=== PATIENT | male | born 1955 | race African-American/Black ===

== ENCOUNTER 2016-11-11 12:08 | Inpatient (IN) | payer OTHER ==
--- NOTE | 2016-11-11 17:36 | HP ---
CIWA Score - CIWA Score Nausea/Vomitin-Mild Nausea/No Vomiting Muscle Tremors: 3 Anxiety: 4-Mod. Anxious/Guarded Agitation: 4-Moderately Restless Paroxysmal Sweats: 1-Minimal Palms Moist Orientation: 2-Disoriented Date<2 days Tacttile Disturbances: 0-None Auditory Disturbances: 0-None Visual Disturbances: 0-None Headache: 0-None Present CIWA-Ar Total Score: 15 Admission ROS BHS - HPI Chief Complaint: withdrawal sx Allergies/Adverse Reactions: Allergies Allergy/AdvReac Type Severity Reaction Status Date / Time No Known Allergies Allergy Verified 11/11/16 18:20 History of Present Illness: 60 years old male with long history of alcohol marijuana nicotine denies medical issue denies medical issue is admitted to detox Exam Limitations: No Limitations - Ebola screening Have you traveled outside of the country in the last 21 days: No Have you had contact with anyone from an Ebola affected area: No Have you been sick,other than usual withdrawal symptoms: No Do you have a fever: No - Review of Systems Constitutional: Chills, Loss of Appetite, Changes in sleep, Unintentional Wgt. Loss, Unexplained wgt Loss EENT: reports: Other (eye glasses) Respiratory: reports: No Symptoms reported Cardiac: reports: No Symptoms Reported GI: reports: Nausea, Poor Fluid Intake, Abdominal cramping : reports: No Symptoms Reported Musculoskeletal: reports: No Symptoms Reported Integumentary: reports: No Symptoms Reported Neuro: reports: Tremors Endocrine: reports: No Symptoms Reported Hematology: reports: No Symptoms Reported Psychiatric: reports: Judgement Intact, Mood/Affect Appropiate Other Systems: Reviewed and Negative Patient History - Patient Medical History Hx Anemia: No Hx Asthma: No Hx Chronic Obstructive Pulmonary Disease (COPD): No Hx Cancer: No Hx Cardiac Disorders: No Hx Congestive Heart Failure: No Hx Hypertension: No Hx Hypercholesterolemia: No Hx Pacemaker: No HX Cerebrovascular Accident: No Hx Seizures: No Hx Dementia: No Hx Diabetes: No Hx Gastrointestinal Disorders: No Hx Liver Disease: No Hx Genitourinary Disorders: No Hx Sexually Transmitted Disorders: No Hx Renal Disease (ESRD): No Hx Thyroid Disease: No Hx Human Immunodeficiency Virus (HIV): No (LAST 08/18 NEGATIVE) Hx Hepatitis C: No Hx Depression: No Hx Suicide Attempt: No Hx Bipolar Disorder: No Hx Schizophrenia: No - Patient Surgical History Past Surgical History: No Hx Neurologic Surgery: No Hx Cataract Extraction: No Hx Cardiac Surgery: No Hx Lung Surgery: No Hx Breast Surgery: No Hx Breast Biopsy: No Hx Abdominal Surgery: No Hx Appendectomy: No Hx Cholecystectomy: No Hx Genitourinary Surgery: No Hx Orthopedic Surgery: No - PPD History Previous Implant?: Yes Documented Results: Negative w/proof Implanted On Prior [facility] Admission?: Yes Date: 01/30/15 Results: 0 mm PPD to be Administered?: Yes - Smoking Cessation Smoking history: Current every day smoker Have you smoked in the past 12 months: Yes Aproximately how many cigarettes per day: 3 Cigars Per Day: 2 Hx Chewing Tobacco Use: No Initiated information on smoking cessation: Yes 'Breaking Loose' booklet given: 11/11/16 - Substance & Tx. History Hx Alcohol Use: Yes Hx Substance Use: Yes Substance Use Type: Alcohol, Marijuana Hx Substance Use Treatment: Yes - Substances Abused Alcohol Route: Oral Frequency: Daily Amount used: 24oz x 5 + pint volka Age of first use: 21 Date of Last Use: 11/11/16 Family Disease History - Family Disease History Family Disease History: Other: Father (), Mother () Admission Physical Exam S - Vital Signs Vital Signs: Vital Signs - 24 hr 11/11/16 13:10 Temperature 96.8 F L Pulse Rate 90 Respiratory 20 Rate Blood Pressure 134/77 - Physical General Appearance: Yes: Appropriately Dressed, Moderate Distress, Alcohol on Breath, Thin, Tremorous, Irritable, Sweating, Anxious HEENTM: Yes: Hearing grossly Normal, Normal ENT Inspection, Normocephalic, Normal Voice Respiratory: Yes: Chest Non-Tender, Lungs Clear, Normal Breath Sounds, No Respiratory Distress, No Accessory Muscle Use Neck: Yes: Supple, Trachea in good position Breast: Yes: Breasts Symetrical Cardiology: Yes: Regular Rhythm, S1, S2, Tachycardia Abdominal: Yes: Non Tender, Soft Genitourinary: Yes: Within Normal Limits Back: Yes: Normal Inspection Musculoskeletal: Yes: full range of Motion, Gait Steady Extremities: Yes: Normal Range of Motion, Non-Tender, Tremors 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: Yes: Alert, Motor Strength 5/5, Normal Mood/Affect, Normal Response Integumentary: Yes: Warm Lymphatic: Yes: Within Normal Limits - Diagnostic (1) Alcohol dependence with uncomplicated withdrawal Current Visit: Yes Status: Acute (2) Nicotine dependence Current Visit: Yes Status: Acute Qualifiers: Nicotine product type: cigarettes Substance use status: in withdrawal Qualified Code(s): F17.213 - Nicotine dependence, cigarettes, with withdrawal (3) Cannabis dependence, uncomplicated Current Visit: Yes Status: Chronic Cleared for Admission [facility] - Detox or Rehab [facility] Level of Care: Medically Managed Detox Regimen/Protocol: Librium S Breath Alcohol Content Breath Alcohol Content: 0.159 Vital Signs - Vital Signs Vital Signs Refused: No - Height Height: 5 ft 10 in - Weight Weight: 162 lb Weight Measurement Method: Standing Scale Body Mass Index (BMI): 23.2 - Bowel Function Bowel Movement: Yes Urine Drug Screen - Control Is Test Valid: Yes - Results Drug Screen Negative: No Urine Drug Screen Results: THC-Marijuana, BZO-Benzodiazepines
[2016-11-11 17:42] VITALS: BMI 23.2
[2016-11-11] MEDS ORDERED: P-EPHED 60MG/TRIPROLIDI 2.5MG TABLET PO PRN (17:43)
[2016-11-11] MEDS ORDERED: ACETAMINOPHEN 325 MG TABLET (FP) PO PRN (17:43)
[2016-11-11] MEDS ORDERED: MAGNESIUM HYDROX 2400MG/30ML ORAL SUSPENSION 30 ML CUP PO PRN (17:43)
[2016-11-11] MEDS ORDERED: guaiFENesin/D-METHORPHAN HB 10 ML UNIT-DOSE CUPS PO PRN (17:43)
[2016-11-11] MEDS ORDERED: IBUPROFEN 400 MG TABLET (FP) PO PRN (17:43)
[2016-11-11] MEDS ORDERED: MAG HYDROX/AL HYDROX/SIMETH 30 ML UNIT-DOSE CUP PO PRN (17:43)
[2016-11-11] MEDS ORDERED: MENTHOL/PHENOL 1 EACH UD MM PRN (17:43)
[2016-11-11] MEDS ORDERED: MAGNESIUM CITRATE 300 ML BOTTLE PO PRN (17:43)
[2016-11-11] MEDS ORDERED: diphenhydrAMINE HCL 50 MG CAPSULE PO PRN (17:43)
[2016-11-11] MEDS ORDERED: NICOTINE POLACRILEX 2 MG GUM BC PRN (17:43)
[2016-11-11] MEDS ORDERED: LOPERAMIDE HCL 2 MG CAPSULE PO PRN (17:43)
[2016-11-11] MEDS ORDERED: NICOTINE 14 MG/24 HOURS TOPICAL PATCH TD PRN (18:45)
[2016-11-11] MEDS: chlordiazePOXIDE HCL 25 MG CAPSULE PO PRN (20:06)
[2016-11-11 22:33] LABS: URINE APPEARANCE CLEAR; URINE BILIRUBIN NEGATIVE (NEGATIVE); URINE BLOOD NEGATIVE (NEGATIVE); URINE COLOR STRAW; URINE GLUCOSE (UA) NEGATIVE (NEGATIVE); URINE KETONE NEGATIVE (NEGATIVE); URINE LEUK ESTERASE NEGATIVE (NEGATIVE); URINE NITRITE NEGATIVE (NEGATIVE); URINE PROTEIN NEGATIVE (NEGATIVE); URINE UROBILINOGEN NEGATIVE E.U./dl (0.2-1.0)
[2016-11-11] MEDS: chlordiazePOXIDE HCL 25 MG CAPSULE PO SCH (22:47)
[2016-11-11] MEDS: THIAMINE HCL 100 MG TABLET (FP) PO SCH (22:47)
[2016-11-12] MEDS: chlordiazePOXIDE HCL 25 MG CAPSULE PO SCH ×4 (05:49→22:55)
--- NOTE | 2016-11-12 10:46 | PN ---
S CIWA - CIWA Score Nausea/Vomitin-No Nausea/No Vomiting Muscle Tremors: 4-Moderate,w/Arms Extend Anxiety: 4-Mod. Anxious/Guarded Agitation: 4-Moderately Restless Paroxysmal Sweats: 1-Minimal Palms Moist Orientation: 0-Oriented Tacttile Disturbances: 3-Moderate Itch/Numb/Burn Auditory Disturbances: 0-None Visual Disturbances: 0-None Headache: 0-None Present CIWA-Ar Total Score: 16 BHS Progress Note (SOAP) Subjective: ANXIETY,SWEATS,SLIGHT TREMORS Objective: 11/12/16 10:45 Vital Signs Temperature 97.7 F 11/12/16 10:22 Pulse Rate 87 11/12/16 10:22 Respiratory Rate 18 11/12/16 10:22 Blood Pressure 118/72 11/12/16 10:22 O2 Sat by Pulse Oximetry (%) Laboratory Last Values Urine Color Straw 11/11/16 22:00 Urine Appearance Clear 11/11/16 22:00 Urine pH 5.0 (5.0-8.0) 11/11/16 22:00 Ur Specific [place] 1.013 (1.001-1.035) 11/11/16 22:00 Urine Protein Negative (NEGATIVE) 11/11/16 22:00 Urine Glucose (UA) Negative (NEGATIVE) 11/11/16 22:00 Urine Ketones Negative (NEGATIVE) 11/11/16 22:00 Urine Blood Negative (NEGATIVE) 11/11/16 22:00 Urine Nitrite Negative (NEGATIVE) 11/11/16 22:00 Urine Bilirubin Negative (NEGATIVE) 11/11/16 22:00 Urine Urobilinogen Negative E.U./dl (0.2-1.0) 11/11/16 22:00 Ur Leukocyte Esterase Negative (NEGATIVE) 11/11/16 22:00 Assessment: 11/12/16 10:46 WITHDRAWAL SX Plan: CONTINUE DETOX
[2016-11-12] MEDS: PRENATAL VITAMINS W/ FOLIC ACID TABLET (FP) PO SCH (11:28)
[2016-11-12] MEDS: ASPIRIN 81 MG CHEWABLE TABLETS PO SCH (11:28)
[2016-11-12 11:41] LABS: MCH 27.4 pg (25.7-33.7); MEAN CELL VOLUME 83.1 fl (80-96); MEAN PLT VOLUME 8.7 fl (7.5-11.1); PLATELET COUNT 226 K/MM3 (134-434); RDW 15.5 % (11.9-15.9); WHITE BLOOD COUNT 4.5 K/mm3 (4.0-10.0)
[2016-11-12 11:44] LABS: ALK PHOS 88 U/L (45-117); BILIRUBIN,TOTAL 0.3 mg/dL (0.2-1.0); CALCIUM 8.3 mg/dL (8.5-10.1); CO2 23 mmol/L (21-32); COCKROFT - GAULT 90.71; CREATININE 0.9 mg/dL (0.7-1.3); GLUCOSE,RANDOM 87 mg/dL (74-106); SGOT/AST 37 U/L (15-37); SGPT/ALT 34 U/L (12-78); TOT PROT 7.5 g/dl (6.4-8.2)
--- NOTE | 2016-11-12 13:58 | EKG ---
Test Reason : Blood Pressure : / mmHG Vent. Rate : 080 BPM Atrial Rate : 080 BPM P-R Int : 162 ms QRS Dur : 084 ms QT Int : 362 ms P-R-T Axes : 133 057 -18 degrees QTc Int : 417 ms NORMAL SINUS RHYTHM NONSPECIFIC T WAVE ABNORMALITY ABNORMAL ECG NO PREVIOUS ECGS AVAILABLE CLINICAL CORRELATION IS RECOMMENDED Confirmed by CARLI LICEA MD ([id number]) on 11/12/2016 1:58:15 PM Referred By: Confirmed By:CARLI LICEA MD
[2016-11-12] MEDS: THIAMINE HCL 100 MG TABLET (FP) PO SCH (22:55)
[2016-11-13] MEDS: chlordiazePOXIDE HCL 25 MG CAPSULE PO SCH ×3 (06:04→17:21)
[2016-11-13] MEDS: PRENATAL VITAMINS W/ FOLIC ACID TABLET (FP) PO SCH (10:36)
[2016-11-13] MEDS: ASPIRIN 81 MG CHEWABLE TABLETS PO SCH (10:36)
--- NOTE | 2016-11-13 11:58 | PN ---
[facility] CIWA - CIWA Score Nausea/Vomitin-No Nausea/No Vomiting Muscle Tremors: 4-Moderate,w/Arms Extend Anxiety: 4-Mod. Anxious/Guarded Agitation: 4-Moderately Restless Paroxysmal Sweats: 1-Minimal Palms Moist Orientation: 0-Oriented Tacttile Disturbances: 3-Moderate Itch/Numb/Burn Auditory Disturbances: 0-None Visual Disturbances: 0-None Headache: 0-None Present CIWA-Ar Total Score: 16 S Progress Note (SOAP) Subjective: ANXIETY,SWEATS,IRRITABILTY. Objective: 11/13/16 11:58 Vital Signs Temperature 96.6 F L 11/13/16 10:22 Pulse Rate 70 11/13/16 10:22 Respiratory Rate 18 11/13/16 10:22 Blood Pressure 129/85 11/13/16 10:22 O2 Sat by Pulse Oximetry (%) Laboratory Last Values WBC 4.5 K/mm3 (4.0-10.0) 11/12/16 06:40 RBC 4.75 M/mm3 (4.00-5.60) 11/12/16 06:40 Hgb 13.0 GM/dL (11.7-16.9) D 11/12/16 06:40 Hct 39.5 % (35.4-49) 11/12/16 06:40 MCV 83.1 fl (80-96) 11/12/16 06:40 MCHC 33.0 g/dl (32.0-35.9) 11/12/16 06:40 RDW 15.5 % (11.9-15.9) D 11/12/16 06:40 Plt Count 226 K/MM3 (134-434) 11/12/16 06:40 MPV 8.7 fl (7.5-11.1) 11/12/16 06:40 Sodium 141 mmol/L (136-145) 11/12/16 06:40 Potassium 4.3 mmol/L (3.5-5.1) 11/12/16 06:40 Chloride 105 mmol/L (98-107) 11/12/16 06:40 Carbon Dioxide 23 mmol/L (21-32) 11/12/16 06:40 Anion Gap Y 11/12/16 06:40 BUN 9 mg/dL (7-18) 11/12/16 06:40 Creatinine 0.9 mg/dL (0.7-1.3) 11/12/16 06:40 Creat Clearance w eGFR > 60 (>60) 11/12/16 06:40 Random Glucose 87 mg/dL (74-106) 11/12/16 06:40 Calcium 8.3 mg/dL (8.5-10.1) L 11/12/16 06:40 Total Bilirubin 0.3 mg/dL (0.2-1.0) D 11/12/16 06:40 AST 37 U/L (15-37) 11/12/16 06:40 ALT 34 U/L (12-78) 11/12/16 06:40 Alkaline Phosphatase 88 U/L (45-117) 11/12/16 06:40 Total Protein 7.5 g/dl (6.4-8.2) 11/12/16 06:40 Albumin 4.0 g/dl (3.4-5.0) 11/12/16 06:40 Urine Color Straw 11/11/16 22:00 Urine Appearance Clear 11/11/16 22:00 Urine pH 5.0 (5.0-8.0) 11/11/16 22:00 Ur Specific [place] 1.013 (1.001-1.035) 11/11/16 22:00 Urine Protein Negative (NEGATIVE) 11/11/16 22:00 Urine Glucose (UA) Negative (NEGATIVE) 11/11/16 22:00 Urine Ketones Negative (NEGATIVE) 11/11/16 22:00 Urine Blood Negative (NEGATIVE) 11/11/16 22:00 Urine Nitrite Negative (NEGATIVE) 11/11/16 22:00 Urine Bilirubin Negative (NEGATIVE) 11/11/16 22:00 Urine Urobilinogen Negative E.U./dl (0.2-1.0) 11/11/16 22:00 Ur Leukocyte Esterase Negative (NEGATIVE) 11/11/16 22:00 RPR Titer Nonreactive (NONREACTIVE) 11/12/16 06:40 Assessment: 11/13/16 11:58 WITHDRAWAL SX Plan: CONTINUE DETOX
[2016-11-13] MEDS: chlordiazePOXIDE HCL 25 MG CAPSULE PO PRN (13:18)
[2016-11-13] MEDS: chlordiazePOXIDE 5 MG CAPSULE PO SCH (23:15)
[2016-11-13] MEDS: THIAMINE HCL 100 MG TABLET (FP) PO SCH (23:17)
[2016-11-14] MEDS: chlordiazePOXIDE 5 MG CAPSULE PO SCH (05:19)
[2016-11-14 06:38] VITALS: BP 120/79; PULSE 61; TEMP 97.1
[2016-11-14] MEDS: ASPIRIN 81 MG CHEWABLE TABLETS PO SCH (10:09)
[2016-11-14] MEDS: PRENATAL VITAMINS W/ FOLIC ACID TABLET (FP) PO SCH (10:09)
--- NOTE | 2016-11-14 10:44 | DS ---
[facility] Detox Discharge Summary Admission Date: 11/11/16 Discharge Date: 11/14/16 - History Present History: Alcohol Dependence, Cannabis Dependence Additional Comments: PT DECLINED TO CONTINUE WITH DETOX FOR PERSONAL REASONS. ALERT O X 3. NAD. Pertinent Past History: DENIES PMHx AND PPSYCHx - Physical Exam Results Vital Signs: Vital Signs Temperature 97.1 F L 11/14/16 06:37 Pulse Rate 61 11/14/16 06:37 Respiratory Rate 18 11/14/16 06:37 Blood Pressure 120/79 11/14/16 06:37 O2 Sat by Pulse Oximetry (%) Pertinent Admission Physical Exam Findings: WITHDRAWAL SX Laboratory Last Values WBC 4.5 K/mm3 (4.0-10.0) 11/12/16 06:40 RBC 4.75 M/mm3 (4.00-5.60) 11/12/16 06:40 Hgb 13.0 GM/dL (11.7-16.9) D 11/12/16 06:40 Hct 39.5 % (35.4-49) 11/12/16 06:40 MCV 83.1 fl (80-96) 11/12/16 06:40 MCHC 33.0 g/dl (32.0-35.9) 11/12/16 06:40 RDW 15.5 % (11.9-15.9) D 11/12/16 06:40 Plt Count 226 K/MM3 (134-434) 11/12/16 06:40 MPV 8.7 fl (7.5-11.1) 11/12/16 06:40 Sodium 141 mmol/L (136-145) 11/12/16 06:40 Potassium 4.3 mmol/L (3.5-5.1) 11/12/16 06:40 Chloride 105 mmol/L (98-107) 11/12/16 06:40 Carbon Dioxide 23 mmol/L (21-32) 11/12/16 06:40 Anion Gap Y 11/12/16 06:40 BUN 9 mg/dL (7-18) 11/12/16 06:40 Creatinine 0.9 mg/dL (0.7-1.3) 11/12/16 06:40 Creat Clearance w eGFR > 60 (>60) 11/12/16 06:40 Random Glucose 87 mg/dL (74-106) 11/12/16 06:40 Calcium 8.3 mg/dL (8.5-10.1) L 11/12/16 06:40 Total Bilirubin 0.3 mg/dL (0.2-1.0) D 11/12/16 06:40 AST 37 U/L (15-37) 11/12/16 06:40 ALT 34 U/L (12-78) 11/12/16 06:40 Alkaline Phosphatase 88 U/L (45-117) 11/12/16 06:40 Total Protein 7.5 g/dl (6.4-8.2) 11/12/16 06:40 Albumin 4.0 g/dl (3.4-5.0) 11/12/16 06:40 Urine Color Straw 11/11/16 22:00 Urine Appearance Clear 11/11/16 22:00 Urine pH 5.0 (5.0-8.0) 11/11/16 22:00 Ur Specific [place] 1.013 (1.001-1.035) 11/11/16 22:00 Urine Protein Negative (NEGATIVE) 11/11/16 22:00 Urine Glucose (UA) Negative (NEGATIVE) 11/11/16 22:00 Urine Ketones Negative (NEGATIVE) 11/11/16 22:00 Urine Blood Negative (NEGATIVE) 11/11/16 22:00 Urine Nitrite Negative (NEGATIVE) 11/11/16 22:00 Urine Bilirubin Negative (NEGATIVE) 11/11/16 22:00 Urine Urobilinogen Negative E.U./dl (0.2-1.0) 11/11/16 22:00 Ur Leukocyte Esterase Negative (NEGATIVE) 11/11/16 22:00 RPR Titer Nonreactive (NONREACTIVE) 11/12/16 06:40 - Treatment Hospital Course: Discharged Condition Good - Medication Discharge Medications: Ambulatory Orders NK [No Known Home Medication] 01/28/15 - Diagnosis (1) Alcohol dependence with uncomplicated withdrawal Current Visit: Yes Status: Acute (2) Nicotine dependence Current Visit: Yes Status: Acute Qualifiers: Nicotine product type: cigarettes Substance use status: in withdrawal Qualified Code(s): F17.213 - Nicotine dependence, cigarettes, with withdrawal (3) Cannabis dependence, uncomplicated Current Visit: Yes Status: Chronic (4) Cocaine dependence Current Visit: No Status: Inactive Qualified Code(s): - - AMA Did Patient Leave Against Medical Advice: Yes (AMA)
[2016-11-14] MEDS ORDERED: chlordiazePOXIDE HCL 10 MG CAPSULE PO SCH (23:00)
== END 2016-11-14 08:45 | disposition left against medical advice (07) | DRG 770 ==
LOC: YASAS 12:08 → Y3N 18:39
PROVIDERS: ADMIT Internal Medicine; ATTEND Internal Medicine
PROC: HZ2ZZZZ Detoxification Services for Substance Abuse Treatment (ICD-10-PCS; principal; 2016-11-14)
DX: F10.230 Alcohol dependence with withdrawal, uncomplicated (principal); F14.20 Cocaine dependence, uncomplicated; F12.20 Cannabis dependence, uncomplicated; F17.210 Nicotine dependence, cigarettes, uncomplicated
CPT/HCPCS: 36415; 80053; 81003; 85027; 86593; 93005; 93010

== ENCOUNTER 2017-08-26 12:09 | Inpatient (IN) | payer OTHER ==
[2017-08-26 14:18] VITALS: BMI 22.9
--- NOTE | 2017-08-26 20:22 | HP ---
CIWA Score - CIWA Score Nausea/Vomitin-Mild Nausea/No Vomiting Muscle Tremors: 4-Moderate,w/Arms Extend Anxiety: 4-Mod. Anxious/Guarded Agitation: 4-Moderately Restless Paroxysmal Sweats: 1-Minimal Palms Moist Orientation: 3-Disoriented Date>2 days Tacttile Disturbances: 0-None Auditory Disturbances: 0-None Visual Disturbances: 0-None Headache: 0-None Present CIWA-Ar Total Score: 17 Admission ROS S - HPI Chief Complaint: withdrawal sx Allergies/Adverse Reactions: Allergies Allergy/AdvReac Type Severity Reaction Status Date / Time No Known Allergies Allergy Verified 08/26/17 16:40 History of Present Illness: 61 years old male with long history of alcohol dependence has asthma copd and depression is admitted to detox Exam Limitations: No Limitations - Ebola screening Have you traveled outside of the country in the last 21 days: No Have you had contact with anyone from an Ebola affected area: No Have you been sick,other than usual withdrawal symptoms: No Do you have a fever: No - Review of Systems Constitutional: Chills, Loss of Appetite, Unintentional Wgt. Loss, Unexplained wgt Loss EENT: reports: Blurred Vision (need eye glasses), Dental Problems (multiple teeth missing) Respiratory: reports: No Symptoms reported Cardiac: reports: No Symptoms Reported GI: reports: Nausea, Poor Fluid Intake, Abdominal cramping : reports: No Symptoms Reported Musculoskeletal: reports: No Symptoms Reported Integumentary: reports: No Symptoms Reported Neuro: reports: Tremors Endocrine: reports: No Symptoms Reported Hematology: reports: No Symptoms Reported Psychiatric: reports: Judgement Intact, Depressed Other Systems: Reviewed and Negative Patient History - Patient Medical History Hx Anemia: No Hx Asthma: No Hx Chronic Obstructive Pulmonary Disease (COPD): No Hx Cancer: No Hx Cardiac Disorders: No Hx Congestive Heart Failure: No Hx Hypertension: No Hx Hypercholesterolemia: No Hx Pacemaker: No HX Cerebrovascular Accident: No Hx Seizures: No Hx Dementia: No Hx Diabetes: No Hx Gastrointestinal Disorders: No Hx Liver Disease: No Hx Genitourinary Disorders: No Hx Sexually Transmitted Disorders: No Hx Renal Disease (ESRD): No Hx Thyroid Disease: No Hx Human Immunodeficiency Virus (HIV): No (LAST 08/18 NEGATIVE) Hx Hepatitis C: Yes Hx Depression: No Hx Suicide Attempt: No Hx Bipolar Disorder: No Hx Schizophrenia: No - Patient Surgical History Past Surgical History: No Hx Neurologic Surgery: No Hx Cataract Extraction: No Hx Cardiac Surgery: No Hx Lung Surgery: No Hx Breast Surgery: No Hx Breast Biopsy: No Hx Abdominal Surgery: No Hx Appendectomy: No Hx Cholecystectomy: No Hx Genitourinary Surgery: No Hx Orthopedic Surgery: No - PPD History Previous Implant?: Yes Documented Results: Negative w/proof Implanted On Prior [facility] Admission?: Yes Date: 11/13/16 Results: 0 mm PPD to be Administered?: No - Smoking Cessation Smoking history: Former smoker Have you smoked in the past 12 months: No Aproximately how many cigarettes per day: 0 Cigars Per Day: 0 Hx Chewing Tobacco Use: No Initiated information on smoking cessation: No - Substance & Tx. History Hx Alcohol Use: Yes Hx Substance Use: Yes Substance Use Type: Alcohol, Marijuana Hx Substance Use Treatment: Yes (11/2016 [facility] - Substances Abused Alcohol Route: Oral Frequency: Daily Amount used: LIQUOR- 1 PINT, BEER- 9 (24oz) Age of first use: 21 Date of Last Use: 08/26/17 Marijuana/Hashish Route: Smoking Frequency: Daily Amount used: $30 worth Age of first use: 21 Date of Last Use: 08/25/17 Family Disease History - Family Disease History Family Disease History: Other: Father (), Mother () Admission Physical Exam S - Vital Signs Vital Signs: Vital Signs - 24 hr 08/26/17 14:16 Temperature 97.4 F L Pulse Rate 112 H Respiratory 20 Rate Blood Pressure 149/81 - Physical General Appearance: Yes: Appropriately Dressed, Mild Distress, Thin, Tremorous, Irritable, Sweating, Anxious HEENTM: Yes: Hearing grossly Normal, Normal ENT Inspection, Normocephalic, Normal Voice Respiratory: Yes: Chest Non-Tender, No Respiratory Distress, No Accessory Muscle Use, Wheezing, Hyperresonant Neck: Yes: Supple, Trachea in good position Breast: Yes: Breasts Symetrical Cardiology: Yes: Regular Rhythm, S1, S2, Tachycardia Abdominal: Yes: Non Tender, Soft, Increased Bowel Sounds Genitourinary: Yes: Within Normal Limits Back: Yes: Normal Inspection Musculoskeletal: Yes: full range of Motion, Gait Steady Extremities: Yes: Normal Inspection, Normal Range of Motion, Non-Tender, Tremors 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: Yes: Alert, Motor Strength 5/5, Normal Response, Depressed Affect Integumentary: Yes: Warm Lymphatic: Yes: Within Normal Limits - Diagnostic (1) Weight loss Current Visit: Yes Status: Acute (2) Depression (emotion) Current Visit: Yes Status: Suspected Qualifiers: Depression Type: dysthymia Qualified Code(s): F34.1 - Dysthymic disorder (3) Asthma Current Visit: Yes Status: Chronic Qualifiers: Asthma severity: mild Asthma persistence: intermittent Asthma complication type: with status asthmaticus Qualified Code(s): J45.22 - Mild intermittent asthma with status asthmaticus (4) Alcohol dependence with uncomplicated withdrawal Current Visit: Yes Status: Acute Cleared for Admission S - Detox or Rehab S Level of Care: Medically Managed Detox Regimen/Protocol: Librium [facility] Breath Alcohol Content Breath Alcohol Content: 0.115 Urine Drug Screen - Results Drug Screen Negative: No Urine Drug Screen Results: THC-Marijuana, BZO-Benzodiazepines
[2017-08-26] MEDS ORDERED: MAG HYDROX/AL HYDROX/SIMETH 30 ML UNIT-DOSE CUP PO PRN (20:24)
[2017-08-26] MEDS ORDERED: IBUPROFEN 400 MG TABLET (FP) PO PRN (20:24)
[2017-08-26] MEDS ORDERED: guaiFENesin/D-METHORPHAN HB 10 ML UNIT-DOSE CUPS PO PRN (20:24)
[2017-08-26] MEDS ORDERED: ACETAMINOPHEN 325 MG TABLET (FP) PO PRN (20:24)
[2017-08-26] MEDS ORDERED: MENTHOL/PHENOL 1 EACH UD MM PRN (20:24)
[2017-08-26] MEDS ORDERED: MAGNESIUM CITRATE 300 ML BOTTLE PO PRN (20:24)
[2017-08-26] MEDS ORDERED: LOPERAMIDE HCL 2 MG CAPSULE PO PRN (20:24)
[2017-08-26] MEDS ORDERED: P-EPHED 60MG/TRIPROLIDI 2.5MG TABLET PO PRN (20:24)
[2017-08-26] MEDS ORDERED: MAGNESIUM HYDROX 2400MG/30ML ORAL SUSPENSION 30 ML CUP PO PRN (20:24)
[2017-08-26] MEDS ORDERED: chlordiazePOXIDE HCL 25 MG CAPSULE PO PRN (20:24)
[2017-08-26] MEDS ORDERED: ALBUTEROL SO4 18 GM HFA INHALER IH PRN (20:25)
[2017-08-26] MEDS ORDERED: ALBUTEROL SO4 0.083% IH SOL 2.5 MG/3 ML VIAL.NEB. NEB PRN (20:26)
[2017-08-26] MEDS: THIAMINE HCL 100 MG TABLET (FP) PO SCH (21:43)
[2017-08-26] MEDS: chlordiazePOXIDE HCL 25 MG CAPSULE PO SCH (22:00)
[2017-08-26 23:55] LABS: URINE APPEARANCE CLEAR; URINE BILIRUBIN NEGATIVE (NEGATIVE); URINE BLOOD NEGATIVE (NEGATIVE); URINE COLOR YELLOW; URINE GLUCOSE (UA) NEGATIVE (NEGATIVE); URINE KETONE NEGATIVE (NEGATIVE); URINE LEUK ESTERASE NEGATIVE (NEGATIVE); URINE NITRITE NEGATIVE (NEGATIVE); URINE PROTEIN NEGATIVE (NEGATIVE)
[2017-08-27] MEDS: chlordiazePOXIDE HCL 25 MG CAPSULE PO SCH ×4 (06:03→22:17)
--- NOTE | 2017-08-27 10:07 | EKG ---
Test Reason : Blood Pressure : / mmHG Vent. Rate : 085 BPM Atrial Rate : 085 BPM P-R Int : 124 ms QRS Dur : 100 ms QT Int : 390 ms P-R-T Axes : 078 088 -84 degrees QTc Int : 464 ms SINUS RHYTHM WITH OCCASIONAL PREMATURE VENTRICULAR COMPLEXES PROLONGED QT ABNORMAL ECG WHEN COMPARED WITH ECG OF 11-NOV-2016 19:10, SINUS RHYTHM HAS REPLACED ECTOPIC ATRIAL RHYTHM CRITERIA FOR LATERAL INFARCT ARE NO LONGER PRESENT T WAVE INVERSION MORE EVIDENT IN INFERIOR LEADS INVERTED T WAVES HAVE REPLACED NONSPECIFIC T WAVE ABNORMALITY IN ANTEROLATERAL LEADS Confirmed by CHERELLE CONNOR MD ([id number]) on 08/27/2017 10:06:36 AM Referred By: Confirmed By:CHERELLE CONNOR MD
[2017-08-27 10:30] LABS: CHLORIDE 101 mmol/L (98-107); POTASSIUM 4.2 mmol/L (3.5-5.1); SODIUM 141 mmol/L (136-145)
[2017-08-27 10:31] LABS: HEMATOCRIT 42.8 % (35.4-49); HEMOGLOBIN 13.5 GM/dL (11.7-16.9); MCH 26.3 pg (25.7-33.7); MCHC 31.6 g/dl (32.0-35.9); MEAN PLT VOLUME 8.8 fl (7.5-11.1); PLATELET COUNT 159 K/MM3 (134-434); RBC 5.15 M/mm3 (4.00-5.60); RDW 16.5 % (11.9-15.9); WHITE BLOOD COUNT 3.8 K/mm3 (4.0-10.0)
[2017-08-27] MEDS: PRENATAL VITAMINS W/ FOLIC ACID TABLET (FP) PO SCH (10:44)
[2017-08-27 11:57] LABS: ALBUMIN 3.8 g/dl (3.4-5.0); ALK PHOS 93 U/L (45-117); ANION GAP 11 (8-16); BILIRUBIN,TOTAL 0.7 mg/dL (0.2-1.0); BLOOD UREA NITROGEN 14 mg/dL (7-18); CALCIUM 9.1 mg/dL (8.5-10.1); CO2 29 mmol/L (21-32); CREATININE 0.9 mg/dL (0.7-1.3); GLUCOSE,RANDOM 90 mg/dL (74-106); TOT PROT 7.8 g/dl (6.4-8.2)
--- NOTE | 2017-08-27 12:09 | CONSULT ---
[facility] Psychiatric Consult - Data Date of interview: 08/27/17 Admission source: [facility] Identifying data: Pt. is a 61 year old male. This is one of multiple admissions for patient. Pt. admitted to for alcohol and Cannabis dependence. Substance Abuse History: Smoking Cessation. Smoking history: Former smoker. Have you smoked in the past 12 months: No. Aproximately how many cigarettes per day: 0. Cigars Per Day: 0. Hx Chewing Tobacco Use: No. Initiated information on smoking cessation: No. - Substance & Tx. History. Hx Alcohol Use: Yes. Hx Substance Use: Yes. Substance Use Type: Alcohol, Marijuana. Hx Substance Use Treatment: Yes (11/2016 [facility]). - Substances Abused. Alcohol. Route: Oral. Frequency: Daily. Amount used: LIQUOR- 1 PINT, BEER- 9 (24oz). Age of first use: 21. Date of Last Use: 08/26/17. Marijuana/ Hashish. Route: Smoking. Frequency: Daily. Amount used: $30 worth. Age of first use: 21. Date of Last Use: 08/25/17 Medical History: Hep C Psychiatric History: Pt. irritable an dismissive during interview. Pt. deneis h/ o psychiatric history, OPC, and suicide attempts. Physical/Sexual Abuse/Trauma History: Denies. Mental Status Exam - Mental Status Exam Alert and Oriented to: Time, Place, Person Cognitive Function: Good Patient Appearance: Unkempt Mood: Irritable Affect: Mood Congruent Patient Behavior: Agitated Speech Pattern: Delayed Voice Loudness: Normal Thought Process: Goal Oriented Thought Disorder: Paranoid Ideation Hallucinations: Denies Suicidal Ideation: Denies Homicidal Ideation: Denies Insight/Judgement: Poor Sleep: Poorly Appetite: Fair Muscle strength/Tone: Normal Gait/Station: Normal Psychiatric Findings - Problem List ([place] 1, 2,3) (1) Alcohol dependence with uncomplicated withdrawal Current Visit: Yes Status: Acute (2) Cannabis dependence, uncomplicated Current Visit: Yes Status: Chronic (3) Substance induced mood disorder Current Visit: No Status: Suspected - Initial Treatment Plan Initial Treatment Plan: Psychoeducation provided. Detoxification in progress. Observation.
[2017-08-27 12:30] LABS: SGOT/AST 404 U/L (15-37)
--- NOTE | 2017-08-27 13:47 | PN ---
[facility] CIWA - CIWA Score Nausea/Vomitin-No Nausea/No Vomiting Muscle Tremors: 3 Anxiety: 4-Mod. Anxious/Guarded Agitation: 3 Paroxysmal Sweats: 2 Orientation: 0-Oriented Tacttile Disturbances: 0-None Auditory Disturbances: 2-Mild Harshness/Frighten Visual Disturbances: 2-Mild Sensitivity Headache: 0-None Present CIWA-Ar Total Score: 16 BHS Progress Note (SOAP) Subjective: Anxious, Tremors, Sweating, Diarrhea. Objective: PT. A & O X 3, OBSERVED AMBULATING ON UNIT. NO ACUTE DISTRESS. 08/27/17 13:43 Vital Signs Temperature 97.3 F L 08/27/17 13:00 Pulse Rate 75 08/27/17 13:00 Respiratory Rate 18 08/27/17 13:00 Blood Pressure 100/65 08/27/17 13:00 O2 Sat by Pulse Oximetry (%) Laboratory Tests 08/26/17 08/27/17 08/27/17 20:45 07:00 07:00 WBC 3.8 L RBC 5.15 Hgb 13.5 Hct 42.8 MCV 83.0 MCH 26.3 MCHC 31.6 L RDW 16.5 H Plt Count 159 D MPV 8.8 Sodium 141 Potassium 4.2 Chloride 101 Carbon Dioxide 29 D Anion Gap 11 BUN 14 D Creatinine 0.9 Creat Clearance w eGFR > 60 Random Glucose 90 Calcium 9.1 Total Bilirubin 0.7 D AST 404 H D Alkaline Phosphatase 93 Total Protein 7.8 Albumin 3.8 Urine Color Yellow Urine Appearance Clear Urine pH 6.0 Ur Specific [place] 1.015 Urine Protein Negative Urine Glucose (UA) Negative Urine Ketones Negative Urine Blood Negative Urine Nitrite Negative Urine Bilirubin Negative Urine Urobilinogen 2.0 Ur Leukocyte Esterase Negative RPR Titer 08/27/17 07:00 WBC RBC Hgb Hct MCV MCH MCHC RDW Plt Count MPV Sodium Potassium Chloride Carbon Dioxide Anion Gap BUN Creatinine Creat Clearance w eGFR Random Glucose Calcium Total Bilirubin AST Alkaline Phosphatase Total Protein Albumin Urine Color Urine Appearance Urine pH Ur Specific [place] Urine Protein Urine Glucose (UA) Urine Ketones Urine Blood Urine Nitrite Urine Bilirubin Urine Urobilinogen Ur Leukocyte Esterase RPR Titer Nonreactive LABS NOTED. Assessment: 08/27/17 13:44 WITHDRAWAL SYMPTOMS. Plan: CONTINUE DETOX. INCREASE DAILY PO FLUID INTAKE. REPEAT AST ON 08/29/2017 FOR ELEVATED ADMISSION LEVEL.
[2017-08-27 16:48] LABS: SGPT/ALT 241 U/L (12-78)
[2017-08-27] MEDS: THIAMINE HCL 100 MG TABLET (FP) PO SCH (22:17)
[2017-08-28] MEDS: chlordiazePOXIDE HCL 25 MG CAPSULE PO SCH ×3 (06:39→18:17)
[2017-08-28] MEDS: PRENATAL VITAMINS W/ FOLIC ACID TABLET (FP) PO SCH (10:45)
--- NOTE | 2017-08-28 13:27 | PN ---
S CIWA - CIWA Score Nausea/Vomitin-No Nausea/No Vomiting Muscle Tremors: 4-Moderate,w/Arms Extend Anxiety: 4-Mod. Anxious/Guarded Agitation: 3 Paroxysmal Sweats: 3 Orientation: 0-Oriented Tacttile Disturbances: 3-Moderate Itch/Numb/Burn Auditory Disturbances: 0-None Visual Disturbances: 0-None Headache: 0-None Present CIWA-Ar Total Score: 17 BHS Progress Note (SOAP) Subjective: Anxious, Tremors, Sweating. Objective: PT. A & O X 3, OBSERVED AMBULATING ON UNIT. NO ACUTE DISTRESS. 08/28/17 13:23 Vital Signs Temperature 98.5 F 08/28/17 10:18 Pulse Rate 75 08/28/17 10:18 Respiratory Rate 18 08/28/17 10:18 Blood Pressure 129/88 08/28/17 10:18 O2 Sat by Pulse Oximetry (%) Laboratory Tests 08/26/17 08/27/17 08/27/17 20:45 07:00 07:00 WBC 3.8 L RBC 5.15 Hgb 13.5 Hct 42.8 MCV 83.0 MCH 26.3 MCHC 31.6 L RDW 16.5 H Plt Count 159 D MPV 8.8 Sodium 141 Potassium 4.2 Chloride 101 Carbon Dioxide 29 D Anion Gap 11 BUN 14 D Creatinine 0.9 Creat Clearance w eGFR > 60 Random Glucose 90 Calcium 9.1 Total Bilirubin 0.7 D AST 404 H D ALT 241 H D Alkaline Phosphatase 93 Total Protein 7.8 Albumin 3.8 Urine Color Yellow Urine Appearance Clear Urine pH 6.0 Ur Specific [place] 1.015 Urine Protein Negative Urine Glucose (UA) Negative Urine Ketones Negative Urine Blood Negative Urine Nitrite Negative Urine Bilirubin Negative Urine Urobilinogen 2.0 Ur Leukocyte Esterase Negative RPR Titer 08/27/17 07:00 WBC RBC Hgb Hct MCV MCH MCHC RDW Plt Count MPV Sodium Potassium Chloride Carbon Dioxide Anion Gap BUN Creatinine Creat Clearance w eGFR Random Glucose Calcium Total Bilirubin AST ALT Alkaline Phosphatase Total Protein Albumin Urine Color Urine Appearance Urine pH Ur Specific [place] Urine Protein Urine Glucose (UA) Urine Ketones Urine Blood Urine Nitrite Urine Bilirubin Urine Urobilinogen Ur Leukocyte Esterase RPR Titer Nonreactive LABS NOTED. Assessment: 08/28/17 13:24 WITHDRAWAL SYMPTOMS. Plan: CONTINUE DETOX. REPEAT ASL, AST TOMORROW AM FOR ELEVATED ADMISSION VALUES.
[2017-08-28 22:18] VITALS: BP 133/80; PULSE 79; TEMP 97.7
[2017-08-28] MEDS ORDERED: chlordiazePOXIDE 5 MG CAPSULE PO SCH (23:00)
--- NOTE | 2017-08-28 23:24 | DS ---
[facility] Detox Discharge Summary Admission Date: 08/26/17 Discharge Date: 08/28/17 - History Additional Comments: Patient left against medical advice. He has a history of leaving against medical advice. Risks and consequences of patient's action explained to him. Patient is stable, alert, oriented to person, place and time. He is able to make informed decision and reports no tangible reason for leaving AMA. Vital signs stable and patient denies withdrawal symptoms. Pertinent Past History: Hep C, HTN - Physical Exam Results Vital Signs: Vital Signs Temperature 97.7 F 08/28/17 22:17 Pulse Rate 79 08/28/17 22:17 Respiratory Rate 18 08/28/17 22:17 Blood Pressure 133/80 08/28/17 22:17 O2 Sat by Pulse Oximetry (%) Laboratory Last Values WBC 3.8 K/mm3 (4.0-10.0) L 08/27/17 07:00 RBC 5.15 M/mm3 (4.00-5.60) 08/27/17 07:00 Hgb 13.5 GM/dL (11.7-16.9) 08/27/17 07:00 Hct 42.8 % (35.4-49) 08/27/17 07:00 MCV 83.0 fl (80-96) 08/27/17 07:00 MCH 26.3 pg (25.7-33.7) 08/27/17 07:00 MCHC 31.6 g/dl (32.0-35.9) L 08/27/17 07:00 RDW 16.5 % (11.9-15.9) H 08/27/17 07:00 Plt Count 159 K/MM3 (134-434) D 08/27/17 07:00 MPV 8.8 fl (7.5-11.1) 08/27/17 07:00 Sodium 141 mmol/L (136-145) 08/27/17 07:00 Potassium 4.2 mmol/L (3.5-5.1) 08/27/17 07:00 Chloride 101 mmol/L (98-107) 08/27/17 07:00 Carbon Dioxide 29 mmol/L (21-32) D 08/27/17 07:00 Anion Gap 11 (8-16) 08/27/17 07:00 BUN 14 mg/dL (7-18) D 08/27/17 07:00 Creatinine 0.9 mg/dL (0.7-1.3) 08/27/17 07:00 Creat Clearance w eGFR > 60 (>60) 08/27/17 07:00 Random Glucose 90 mg/dL (74-106) 08/27/17 07:00 Calcium 9.1 mg/dL (8.5-10.1) 08/27/17 07:00 Total Bilirubin 0.7 mg/dL (0.2-1.0) D 08/27/17 07:00 AST 404 U/L (15-37) H D 08/27/17 07:00 ALT 241 U/L (12-78) H D 08/27/17 07:00 Alkaline Phosphatase 93 U/L (45-117) 08/27/17 07:00 Total Protein 7.8 g/dl (6.4-8.2) 08/27/17 07:00 Albumin 3.8 g/dl (3.4-5.0) 08/27/17 07:00 Urine Color Yellow 08/26/17 20:45 Urine Appearance Clear 08/26/17 20:45 Urine pH 6.0 (5.0-8.0) 08/26/17 20:45 Ur Specific [place] 1.015 (1.001-1.035) 08/26/17 20:45 Urine Protein Negative (NEGATIVE) 08/26/17 20:45 Urine Glucose (UA) Negative (NEGATIVE) 08/26/17 20:45 Urine Ketones Negative (NEGATIVE) 08/26/17 20:45 Urine Blood Negative (NEGATIVE) 08/26/17 20:45 Urine Nitrite Negative (NEGATIVE) 08/26/17 20:45 Urine Bilirubin Negative (NEGATIVE) 08/26/17 20:45 Urine Urobilinogen 2.0 mg/dL (0.2-1.0) 08/26/17 20:45 Ur Leukocyte Esterase Negative (NEGATIVE) 08/26/17 20:45 RPR Titer Nonreactive (NONREACTIVE) 08/27/17 07:00 Pertinent Admission Physical Exam Findings: Withdrawal symptoms - Medication Discharge Medications: Ambulatory Orders NK [No Known Home Medication] 01/28/15 - Diagnosis (1) Alcohol dependence with uncomplicated withdrawal Status: Acute (2) Nicotine dependence Status: Acute Qualifiers: Nicotine product type: cigarettes Substance use status: in withdrawal Qualified Code(s): F17.213 - Nicotine dependence, cigarettes, with withdrawal (3) Asthma Status: Chronic Qualifiers: Asthma severity: mild Asthma persistence: intermittent Asthma complication type: with status asthmaticus Qualified Code(s): J45.22 - Mild intermittent asthma with status asthmaticus - AMA Did Patient Leave Against Medical Advice: Yes
[2017-08-29] MEDS ORDERED: chlordiazePOXIDE HCL 10 MG CAPSULE PO SCH (23:00)
== END 2017-08-28 21:24 | disposition left against medical advice (07) | DRG 770 ==
LOC: YASAS 12:09 → Y3N 16:59
PROVIDERS: ADMIT Internal Medicine; ATTEND Internal Medicine
PROC: HZ2ZZZZ Detoxification Services for Substance Abuse Treatment (ICD-10-PCS; principal; 2017-08-26)
DX: F10.230 Alcohol dependence with withdrawal, uncomplicated (principal); F12.20 Cannabis dependence, uncomplicated; F17.213 Nicotine dependence, cigarettes, with withdrawal; F34.1 Dysthymic disorder; F19.24 Other psychoactive substance dependence with psychoactive substance-induced mood disorder; J45.22 Mild intermittent asthma with status asthmaticus; R00.0 Tachycardia, unspecified; Z87.898 Personal history of other specified conditions
CPT/HCPCS: 36415; 80053; 81003; 85027; 86593; 93005; 93010

== ENCOUNTER 2018-03-25 17:15 | Inpatient (IN) | payer OTHER ==
[2018-03-25 18:02] VITALS: BMI 22.9
--- NOTE | 2018-03-25 21:10 | HP ---
CIWA Score - CIWA Score Nausea/Vomitin Muscle Tremors: 2 Anxiety: 3 Agitation: 4-Moderately Restless Paroxysmal Sweats: 3 Orientation: 0-Oriented Tacttile Disturbances: 0-None Auditory Disturbances: 0-None Visual Disturbances: 0-None Headache: 0-None Present CIWA-Ar Total Score: 15 Admission ROS S - HPI Chief Complaint: alcohol withdrawal symptoms Allergies/Adverse Reactions: Allergies Allergy/AdvReac Type Severity Reaction Status Date / Time No Known Allergies Allergy Verified 02/02/18 11:58 History of Present Illness: 62 yo male with hx of alcohol, nicotine, xanax, crack/cocaine and marijuana dependence is here seeking detox. Last detox [facility] 02/02/18 -02/04/18 left AMA. Denies suicidal / homicidal ideation or hx of suicidal ideation. Denies hx of seizures. Longest perid of sobriety eight years ([id number]). Exam Limitations: No Limitations - Ebola screening Have you traveled outside of the country in the last 21 days: No (N) Have you had contact with anyone from an Ebola affected area: No Have you been sick,other than usual withdrawal symptoms: No Do you have a fever: No - Review of Systems Constitutional: Chills, Unexplained wgt Loss EENT: reports: No Symptoms Reported Respiratory: reports: No Symptoms reported Cardiac: reports: No Symptoms Reported GI: reports: Nausea, Poor Fluid Intake : reports: No Symptoms Reported Musculoskeletal: reports: No Symptoms Reported Integumentary: reports: No Symptoms Reported Neuro: reports: Dizziness Endocrine: reports: No Symptoms Reported Hematology: reports: No Symptoms Reported Psychiatric: reports: Orientated x3, Agitated Other Systems: Reviewed and Negative Patient History - Patient Medical History Hx Anemia: No Hx Asthma: No Hx Chronic Obstructive Pulmonary Disease (COPD): No Hx Cancer: No Hx Cardiac Disorders: No Hx Congestive Heart Failure: No Hx Hypertension: No Hx Hypercholesterolemia: No Hx Pacemaker: No HX Cerebrovascular Accident: No Hx Seizures: No Hx Dementia: No Hx Diabetes: No Hx Gastrointestinal Disorders: No Hx Liver Disease: No Hx Genitourinary Disorders: No Hx Sexually Transmitted Disorders: No Hx Renal Disease (ESRD): No Hx Thyroid Disease: No Hx Human Immunodeficiency Virus (HIV): No (LAST TESTED FOUR MONTHS AGO NEGATIVE) Hx Hepatitis C: No Hx Depression: No Hx Suicide Attempt: No Hx Bipolar Disorder: No Hx Schizophrenia: No - Patient Surgical History Past Surgical History: Yes Hx Neurologic Surgery: No Hx Cataract Extraction: No Hx Cardiac Surgery: No Hx Lung Surgery: No Hx Breast Surgery: No Hx Breast Biopsy: No Hx Abdominal Surgery: No Hx Appendectomy: No Hx Cholecystectomy: No Hx Genitourinary Surgery: No Hx Section: No Hx Orthopedic Surgery: No Other Surgical History: bilateral inguinal hernia repair in 2004 Anesthesia Reaction: No - PPD History Previous Implant?: No Documented Results: Negative w/o proof Implanted On Prior [facility] Admission?: No Date: 02/04/18 Results: 0 mm PPD to be Administered?: Yes - Smoking Cessation Smoking history: Current some day smoker Have you smoked in the past 12 months: Yes Aproximately how many cigarettes per day: 2 Cigars Per Day: 0 Hx Chewing Tobacco Use: No Initiated information on smoking cessation: Yes 'Breaking Loose' booklet given: 03/25/18 - Substance & Tx. History Hx Alcohol Use: Yes Hx Substance Use: Yes Substance Use Type: Alcohol, Cocaine, Marijuana, Tranquilizers Hx Substance Use Treatment: Yes (Last detox [facility] 02/02/18 -02/04/18 left AMA ) - Substances Abused Alcohol Route: Oral Frequency: Daily Amount used: 9 x 24 oz beer + 1 pint vodka Age of first use: 21 Date of Last Use: 03/25/18 Alprazolam (Xanax) Route: Oral Frequency: Daily Amount used: 2 mg Age of first use: 57 Date of Last Use: 03/24/18 Marijuana/Hashish Route: Smoking Frequency: Daily Amount used: $40 Age of first use: 25 Date of Last Use: 03/24/18 Crack Route: Smoking Frequency: Daily Amount used: $80 Age of first use: 35 Date of Last Use: 03/24/18 Family Disease History - Family Disease History Family Disease History: Other: Father (), Mother () Admission Physical Exam S - Vital Signs Vital Signs: Vital Signs - 24 hr 03/25/18 18:00 Temperature 97.8 F Pulse Rate 74 Respiratory 18 Rate Blood Pressure 137/82 - Physical General Appearance: Yes: Mild Distress, Thin, Irritable, Anxious HEENTM: Yes: EOMI, Hearing grossly Normal, Normal ENT Inspection, Normocephalic , Normal Voice, CARLY, Pharynx Normal, Tm's normal, Other (poor dentition) Respiratory: Yes: Chest Non-Tender, Lungs Clear, Normal Breath Sounds, No Respiratory Distress, No Accessory Muscle Use Neck: Yes: Within Normal Limits Breast: Yes: Breast Exam Deferred Cardiology: Yes: Regular Rhythm, Regular Rate Abdominal: Yes: Normal Bowel Sounds, Non Tender, Flat, Soft Genitourinary: Yes: Within Normal Limits Back: Yes: Normal Inspection Musculoskeletal: Yes: full range of Motion, Gait Steady, Pelvis Stable Extremities: Yes: Normal Capillary Refill, Normal Inspection, Normal Range of Motion, Non-Tender 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: Yes: answering service operator II-XII NML intact, Fully Oriented, Alert, Motor Strength 5/5, Depressed Affect Integumentary: Yes: Normal Color, Dry, Warm Lymphatic: Yes: Within Normal Limits - Diagnostic (1) Sedative hypnotic or anxiolytic dependence Current Visit: Yes Status: Acute (2) Cocaine dependence Current Visit: Yes Status: Acute Qualifiers: Substance use status: uncomplicated Qualified Code(s): F14.20 - Cocaine dependence, uncomplicated (3) Alcohol dependence with uncomplicated withdrawal Current Visit: Yes Status: Acute (4) Nicotine dependence Current Visit: Yes Status: Acute Qualifiers: Nicotine product type: cigarettes Substance use status: in withdrawal Qualified Code(s): F17.213 - Nicotine dependence, cigarettes, with withdrawal (5) Asthma Current Visit: Yes Status: Chronic Qualifiers: Asthma severity: mild Asthma persistence: intermittent Asthma complication type: with status asthmaticus Qualified Code(s): J45.22 - Mild intermittent asthma with status asthmaticus (6) Cannabis dependence, uncomplicated Current Visit: Yes Status: Chronic Cleared for Admission [facility] - Detox or Rehab [facility] Level of Care: Medically Managed Detox Regimen/Protocol: Librium [facility] Breath Alcohol Content Breath Alcohol Content: 0.098 Urine Drug Screen - Results Drug Screen Negative: No Urine Drug Screen Results: THC-Marijuana, CASIMIRO-Cocaine, BZO-Benzodiazepines
[2018-03-25] MEDS ORDERED: MENTHOL/PHENOL 1 EACH UD MM PRN (21:17)
[2018-03-25] MEDS ORDERED: IBUPROFEN 400 MG TABLET (FP) PO PRN (21:17)
[2018-03-25] MEDS ORDERED: MAG HYDROX/AL HYDROX/SIMETH 30 ML UNIT-DOSE CUP PO PRN (21:17)
[2018-03-25] MEDS ORDERED: MAGNESIUM HYDROX 2400MG/30ML ORAL SUSPENSION 30 ML CUP PO PRN (21:17)
[2018-03-25] MEDS ORDERED: MAGNESIUM CITRATE 300 ML BOTTLE PO PRN (21:17)
[2018-03-25] MEDS ORDERED: NICOTINE POLACRILEX 2 MG GUM BC PRN (21:17)
[2018-03-25] MEDS ORDERED: LOPERAMIDE HCL 2 MG CAPSULE PO PRN (21:17)
--- NOTE | 2018-03-25 21:24 | HP ---
CIWA Score - CIWA Score Nausea/Vomitin Muscle Tremors: 2 Anxiety: 3 Agitation: 3 Paroxysmal Sweats: 3 Orientation: 0-Oriented Tacttile Disturbances: 0-None Auditory Disturbances: 0-None Visual Disturbances: 0-None Headache: 0-None Present CIWA-Ar Total Score: 14 Admission ROS BHS - HPI Chief Complaint: alcohol withdrawal symptoms Allergies/Adverse Reactions: Allergies Allergy/AdvReac Type Severity Reaction Status Date / Time No Known Allergies Allergy Verified 02/02/18 11:58 History of Present Illness: Last detox [facility] 02/02/18 -02/04/18. Exam Limitations: No Limitations - Ebola screening Have you traveled outside of the country in the last 21 days: No (N) Have you had contact with anyone from an Ebola affected area: No Have you been sick,other than usual withdrawal symptoms: No Do you have a fever: No Patient History - Patient Medical History Hx Anemia: No Hx Asthma: No Hx Chronic Obstructive Pulmonary Disease (COPD): No Hx Cancer: No Hx Cardiac Disorders: No Hx Congestive Heart Failure: No Hx Hypertension: No Hx Hypercholesterolemia: No Hx Pacemaker: No HX Cerebrovascular Accident: No Hx Seizures: No Hx Dementia: No Hx Diabetes: No Hx Gastrointestinal Disorders: No Hx Liver Disease: No Hx Genitourinary Disorders: No Hx Sexually Transmitted Disorders: No Hx Renal Disease (ESRD): No Hx Thyroid Disease: No Hx Human Immunodeficiency Virus (HIV): No (LAST TESTED FOUR MONTHS AGO NEGATIVE) Hx Hepatitis C: No Hx Depression: No Hx Suicide Attempt: No Hx Bipolar Disorder: No Hx Schizophrenia: No - Patient Surgical History Past Surgical History: Yes Hx Neurologic Surgery: No Hx Cataract Extraction: No Hx Cardiac Surgery: No Hx Lung Surgery: No Hx Breast Surgery: No Hx Breast Biopsy: No Hx Abdominal Surgery: No Hx Appendectomy: No Hx Cholecystectomy: No Hx Genitourinary Surgery: No Hx Section: No Hx Orthopedic Surgery: No Other Surgical History: bilateral inguinal hernia repair in 2004 Anesthesia Reaction: No - PPD History Previous Implant?: No Documented Results: Negative w/o proof Implanted On Prior [facility] Admission?: No Date: 02/04/18 Results: 0 mm - Smoking Cessation Smoking history: Current some day smoker Have you smoked in the past 12 months: Yes Aproximately how many cigarettes per day: 2 Cigars Per Day: 0 Hx Chewing Tobacco Use: No Initiated information on smoking cessation: Yes - Substances Abused Alcohol Route: Oral Frequency: Daily Amount used: 9 x 24 oz beer + 1 pint vodka Age of first use: 21 Date of Last Use: 03/25/18 Alprazolam (Xanax) Route: Oral Frequency: Daily Amount used: 2 mg Age of first use: 57 Date of Last Use: 03/24/18 Marijuana/Hashish Route: Smoking Frequency: Daily Amount used: $40 Age of first use: 25 Date of Last Use: 03/24/18 Crack Route: Smoking Frequency: Daily Amount used: $80 Age of first use: 35 Date of Last Use: 03/24/18 Family Disease History - Family Disease History Family Disease History: Other: Father (), Mother () Admission Physical Exam BHS - Vital Signs Vital Signs: Vital Signs - 24 hr 03/25/18 18:00 Temperature 97.8 F Pulse Rate 74 Respiratory 18 Rate Blood Pressure 137/82 BHS Breath Alcohol Content Breath Alcohol Content: 0.098 Urine Drug Screen - Results Drug Screen Negative: No Urine Drug Screen Results: THC-Marijuana, CASIMIRO-Cocaine, BZO-Benzodiazepines
[2018-03-25] MEDS ORDERED: MELATONIN 5 MG TABLETS PO PRN (22:00)
[2018-03-26] MEDS: THIAMINE HCL 100 MG TABLET (FP) PO SCH (01:05)
[2018-03-26] MEDS: chlordiazePOXIDE HCL 25 MG CAPSULE PO PRN ×2 (01:09→15:45)
[2018-03-26] MEDS: chlordiazePOXIDE HCL 25 MG CAPSULE PO SCH ×3 (01:14→11:14)
[2018-03-26 10:17] LABS: URINE APPEARANCE CLEAR; URINE BILIRUBIN NEGATIVE (<2.0 mg/dL); URINE COLOR YELLOW; URINE GLUCOSE (UA) NEGATIVE (NEGATIVE); URINE KETONE NEGATIVE (NEGATIVE); URINE LEUK ESTERASE NEGATIVE (NEGATIVE); URINE NITRITE NEGATIVE (NEGATIVE); URINE PROTEIN NEGATIVE (NEGATIVE)
[2018-03-26 10:26] LABS: HEMATOCRIT 40.7 % (35.4-49); HEMOGLOBIN 13.4 GM/dL (11.7-16.9); MCH 27.1 pg (25.7-33.7); MCHC 32.9 g/dl (32.0-35.9); MEAN CELL VOLUME 82.4 fl (80-96); MEAN PLT VOLUME 8.6 fl (7.5-11.1); PLATELET COUNT 215 K/MM3 (134-434); RBC 4.95 M/mm3 (4.00-5.60); RDW 16.2 % (11.9-15.9); WHITE BLOOD COUNT 3.4 K/mm3 (4.0-10.0)
[2018-03-26 10:31] LABS: ANION GAP 7 MMOL/L (8-16); BLOOD UREA NITROGEN 12 mg/dL (7-18); CALCIUM 8.6 mg/dL (8.5-10.1); CHLORIDE 106 mmol/L (98-107); CO2 29 mmol/L (21-32); CREATININE 0.9 mg/dL (0.7-1.3); GLUCOSE,RANDOM 97 mg/dL (74-106); POTASSIUM 4.5 mmol/L (3.5-5.1); SGOT/AST 67 U/L (15-37); SGPT/ALT 52 U/L (12-78); SODIUM 142 mmol/L (136-145)
[2018-03-26 10:34] LABS: ALK PHOS 101 U/L (45-117); BILIRUBIN,TOTAL 0.4 mg/dL (0.2-1.0); TOT PROT 7.9 g/dl (6.4-8.2)
[2018-03-26] MEDS: PRENATAL VITAMINS W/ FOLIC ACID TABLET (FP) PO SCH (11:13)
[2018-03-26] MEDS: NICOTINE 14 MG/24 HOURS TOPICAL PATCH TD SCH (11:14)
--- NOTE | 2018-03-26 13:48 | PN ---
S CIWA - CIWA Score Nausea/Vomitin Muscle Tremors: 4-Moderate,w/Arms Extend Anxiety: 2 Agitation: 1-Slight > Activity Paroxysmal Sweats: 2 Orientation: 0-Oriented Tacttile Disturbances: 0-None Auditory Disturbances: 0-None Visual Disturbances: 0-None Headache: 0-None Present CIWA-Ar Total Score: 11 BHS Progress Note (SOAP) Subjective: S: states he feels like he is in withdrawal, admitted yesterday. Obj: Vital Signs - 24 hr 03/25/18 03/26/18 03/26/18 18:00 01:26 03:30 Temperature 97.8 F 97.7 F Pulse Rate 74 70 Respiratory 18 18 18 Rate Blood Pressure 137/82 129/73 03/26/18 03/26/18 06:48 09:31 Temperature 97.5 F L 98.4 F Pulse Rate 67 81 Respiratory 18 18 Rate Blood Pressure 129/81 112/75 Laboratory Tests 03/26/18 03/26/18 03/26/18 07:40 07:40 07:40 WBC 3.4 L RBC 4.95 Hgb 13.4 Hct 40.7 MCV 82.4 MCH 27.1 MCHC 32.9 RDW 16.2 H Plt Count 215 MPV 8.6 Sodium 142 Potassium 4.5 Chloride 106 Carbon Dioxide 29 D Anion Gap 7 L BUN 12 Creatinine 0.9 Creat Clearance w eGFR > 60 Random Glucose 97 D Calcium 8.6 Total Bilirubin 0.4 AST 67 H D ALT 52 D Alkaline Phosphatase 101 Total Protein 7.9 Albumin 4.0 Urine Color Urine Appearance Urine pH Ur Specific [place] Urine Protein Urine Glucose (UA) Urine Ketones Urine Blood Urine Nitrite Urine Bilirubin Urine Urobilinogen Ur Leukocyte Esterase RPR Titer Nonreactive 03/26/18 09:00 WBC RBC Hgb Hct MCV MCH MCHC RDW Plt Count MPV Sodium Potassium Chloride Carbon Dioxide Anion Gap BUN Creatinine Creat Clearance w eGFR Random Glucose Calcium Total Bilirubin AST ALT Alkaline Phosphatase Total Protein Albumin Urine Color Yellow Urine Appearance Clear Urine pH 5.0 D Ur Specific [place] 1.021 Urine Protein Negative Urine Glucose (UA) Negative Urine Ketones Negative Urine Blood Negative Urine Nitrite Negative Urine Bilirubin Negative Urine Urobilinogen 2.0 Ur Leukocyte Esterase Negative RPR Titer mildly increased liver enzymes CIWA score 11- pt tremulous Ass/plan: 62 yo male with hx of alcohol, nicotine, xanax, crack/cocaine and marijuana dependence is here for alcohol withdrawal- continue detox. d/w pt that he can ask for prn medications- including librium if he has withdrawal Sx- pt given an additional dose of librium now
--- NOTE | 2018-03-26 16:02 | EKG ---
Test Reason : Blood Pressure : / mmHG Vent. Rate : 067 BPM Atrial Rate : 067 BPM P-R Int : 142 ms QRS Dur : 092 ms QT Int : 432 ms P-R-T Axes : 058 041 -26 degrees QTc Int : 456 ms SINUS RHYTHM WITH PREMATURE ATRIAL COMPLEXES LOW VOLTAGE QRS T WAVE ABNORMALITY, CONSIDER INFEROLATERAL ISCHEMIA ABNORMAL ECG WHEN COMPARED WITH ECG OF 02-FEB-2018 17:44, PREMATURE ATRIAL COMPLEXES ARE NOW PRESENT Confirmed by Josselyn Glover ([id number]) on 03/26/2018 4:01:41 PM Referred By: Confirmed By:Josselyn Glover
[2018-03-27] MEDS: THIAMINE HCL 100 MG TABLET (FP) PO SCH ×2 (00:39→22:19)
[2018-03-27] MEDS: chlordiazePOXIDE HCL 25 MG CAPSULE PO SCH ×5 (00:39→17:42)
[2018-03-27] MEDS: PRENATAL VITAMINS W/ FOLIC ACID TABLET (FP) PO SCH (10:26)
[2018-03-27] MEDS: NICOTINE 14 MG/24 HOURS TOPICAL PATCH TD SCH (10:26)
[2018-03-27] MEDS ORDERED: AZITHROMYCIN 250 MG TABLET PO ONE ×2 (11:08)
--- NOTE | 2018-03-27 11:08 | PN ---
S CIWA - CIWA Score Nausea/Vomitin Muscle Tremors: 2 Anxiety: 3 Agitation: 2 Paroxysmal Sweats: 3 Orientation: 0-Oriented Tacttile Disturbances: 2-Mild Itch/Numbness/Burn Auditory Disturbances: 0-None Visual Disturbances: 0-None Headache: 0-None Present CIWA-Ar Total Score: 14 [facility] Progress Note (SOAP) Subjective: interrupted sleep, sweats, cough, green phlegm Objective: 03/27/18 11:06 Vital Signs Temperature 96.1 F L 03/27/18 07:23 Pulse Rate 61 03/27/18 07:23 Respiratory Rate 18 03/27/18 07:23 Blood Pressure 150/94 03/27/18 07:23 O2 Sat by Pulse Oximetry (%) Laboratory Tests 03/26/18 03/26/18 03/26/18 07:40 07:40 07:40 WBC 3.4 L RBC 4.95 Hgb 13.4 Hct 40.7 MCV 82.4 MCH 27.1 MCHC 32.9 RDW 16.2 H Plt Count 215 MPV 8.6 Sodium 142 Potassium 4.5 Chloride 106 Carbon Dioxide 29 D Anion Gap 7 L BUN 12 Creatinine 0.9 Creat Clearance w eGFR > 60 Random Glucose 97 D Calcium 8.6 Total Bilirubin 0.4 AST 67 H D ALT 52 D Alkaline Phosphatase 101 Total Protein 7.9 Albumin 4.0 Urine Color Urine Appearance Urine pH Ur Specific [place] Urine Protein Urine Glucose (UA) Urine Ketones Urine Blood Urine Nitrite Urine Bilirubin Urine Urobilinogen Ur Leukocyte Esterase RPR Titer Nonreactive 03/26/18 09:00 WBC RBC Hgb Hct MCV MCH MCHC RDW Plt Count MPV Sodium Potassium Chloride Carbon Dioxide Anion Gap BUN Creatinine Creat Clearance w eGFR Random Glucose Calcium Total Bilirubin AST ALT Alkaline Phosphatase Total Protein Albumin Urine Color Yellow Urine Appearance Clear Urine pH 5.0 D Ur Specific [place] 1.021 Urine Protein Negative Urine Glucose (UA) Negative Urine Ketones Negative Urine Blood Negative Urine Nitrite Negative Urine Bilirubin Negative Urine Urobilinogen 2.0 Ur Leukocyte Esterase Negative RPR Titer pt aox3 in nad with cough lungs - rhonchi cherie Assessment: 03/27/18 11:06 withdrawal sx's uri Plan: cont. detox increase fluids zpack
[2018-03-27] MEDS: guaiFENesin/D-METHORPHAN HB 10 ML UNIT-DOSE CUPS PO PRN ×2 (11:37→17:46)
[2018-03-27] MEDS: ACETAMINOPHEN 325 MG TABLET (FP) PO PRN (15:52)
[2018-03-27] MEDS: P-EPHED 60MG/TRIPROLIDI 2.5MG TABLET PO PRN (15:53)
[2018-03-27] MEDS: chlordiazePOXIDE 5 MG CAPSULE PO SCH (22:19)
[2018-03-28] MEDS: guaiFENesin/D-METHORPHAN HB 10 ML UNIT-DOSE CUPS PO PRN ×3 (00:33→14:21)
[2018-03-28] MEDS: ACETAMINOPHEN 325 MG TABLET (FP) PO PRN ×2 (04:12→14:21)
[2018-03-28] MEDS: chlordiazePOXIDE 5 MG CAPSULE PO SCH ×3 (08:06→17:00)
[2018-03-28] MEDS: AZITHROMYCIN 250 MG TABLET PO SCH (10:45)
[2018-03-28] MEDS: PRENATAL VITAMINS W/ FOLIC ACID TABLET (FP) PO SCH (10:47)
[2018-03-28] MEDS: NICOTINE 14 MG/24 HOURS TOPICAL PATCH TD SCH (10:47)
[2018-03-28] MEDS: P-EPHED 60MG/TRIPROLIDI 2.5MG TABLET PO PRN (10:49)
--- NOTE | 2018-03-28 12:20 | PN ---
BHS Progress Note (SOAP) Subjective: Mild sweats and tremors Objective: 03/28/18 12:19 Vital Signs 03/28/18 03/28/18 06:00 09:36 Temperature 97.2 F L 99.3 F Pulse Rate 69 67 Respiratory 18 18 Rate Blood Pressure 99/50 131/88 Laboratory Last Values WBC 3.4 K/mm3 (4.0-10.0) L 03/26/18 07:40 RBC 4.95 M/mm3 (4.00-5.60) 03/26/18 07:40 Hgb 13.4 GM/dL (11.7-16.9) 03/26/18 07:40 Hct 40.7 % (35.4-49) 03/26/18 07:40 MCV 82.4 fl (80-96) 03/26/18 07:40 MCH 27.1 pg (25.7-33.7) 03/26/18 07:40 MCHC 32.9 g/dl (32.0-35.9) 03/26/18 07:40 RDW 16.2 % (11.9-15.9) H 03/26/18 07:40 Plt Count 215 K/MM3 (134-434) 03/26/18 07:40 MPV 8.6 fl (7.5-11.1) 03/26/18 07:40 Sodium 142 mmol/L (136-145) 03/26/18 07:40 Potassium 4.5 mmol/L (3.5-5.1) 03/26/18 07:40 Chloride 106 mmol/L (98-107) 03/26/18 07:40 Carbon Dioxide 29 mmol/L (21-32) D 03/26/18 07:40 Anion Gap 7 MMOL/L (8-16) L 03/26/18 07:40 BUN 12 mg/dL (7-18) 03/26/18 07:40 Creatinine 0.9 mg/dL (0.7-1.3) 03/26/18 07:40 Creat Clearance w eGFR > 60 (>60) 03/26/18 07:40 Random Glucose 97 mg/dL (74-106) D 03/26/18 07:40 Calcium 8.6 mg/dL (8.5-10.1) 03/26/18 07:40 Total Bilirubin 0.4 mg/dL (0.2-1.0) 03/26/18 07:40 AST 67 U/L (15-37) H D 03/26/18 07:40 ALT 52 U/L (12-78) D 03/26/18 07:40 Alkaline Phosphatase 101 U/L (45-117) 03/26/18 07:40 Total Protein 7.9 g/dl (6.4-8.2) 03/26/18 07:40 Albumin 4.0 g/dl (3.4-5.0) 03/26/18 07:40 Urine Color Yellow 03/26/18 09:00 Urine Appearance Clear 03/26/18 09:00 Urine pH 5.0 (5.0-8.0) D 03/26/18 09:00 Ur Specific [place] 1.021 (1.001-1.035) 03/26/18 09:00 Urine Protein Negative (NEGATIVE) 03/26/18 09:00 Urine Glucose (UA) Negative (NEGATIVE) 03/26/18 09:00 Urine Ketones Negative (NEGATIVE) 03/26/18 09:00 Urine Blood Negative (NEGATIVE) 03/26/18 09:00 Urine Nitrite Negative (NEGATIVE) 03/26/18 09:00 Urine Bilirubin Negative (<2.0 mg/dL) 03/26/18 09:00 Urine Urobilinogen 2.0 mg/dL (0.2-1.0) 03/26/18 09:00 Ur Leukocyte Esterase Negative (NEGATIVE) 03/26/18 09:00 RPR Titer Nonreactive (NONREACTIVE) 03/26/18 07:40 Labs noted Alert, no apparent distress Assessment: 03/28/18 12:20 Withdrawal sx Plan: Continue detox
[2018-03-28] MEDS: chlordiazePOXIDE HCL 25 MG CAPSULE PO PRN (18:11)
[2018-03-28 22:53] VITALS: BP 147/91; PULSE 73; TEMP 98.1
[2018-03-28] MEDS: chlordiazePOXIDE HCL 10 MG CAPSULE PO SCH (23:27)
[2018-03-28] MEDS: THIAMINE HCL 100 MG TABLET (FP) PO SCH (23:28)
[2018-03-29] MEDS: guaiFENesin/D-METHORPHAN HB 10 ML UNIT-DOSE CUPS PO PRN (01:08)
[2018-03-29] MEDS: ACETAMINOPHEN 325 MG TABLET (FP) PO PRN (01:09)
[2018-03-29] MEDS: chlordiazePOXIDE HCL 10 MG CAPSULE PO SCH (07:30)
[2018-03-29] MEDS: NICOTINE 14 MG/24 HOURS TOPICAL PATCH TD SCH (09:43)
[2018-03-29] MEDS: PRENATAL VITAMINS W/ FOLIC ACID TABLET (FP) PO SCH (09:43)
[2018-03-29] MEDS: AZITHROMYCIN 250 MG TABLET PO SCH (09:43)
--- NOTE | 2018-03-29 09:50 | PN ---
BHS Progress Note Note: Alert and orientated.
--- NOTE | 2018-03-29 14:17 | DS ---
[facility] Detox Discharge Summary Admission Date: 03/25/18 Discharge Date: 03/29/18 - History Present History: Alcohol Dependence, Cannabis Dependence, Cocaine Dependence, Sedative Dependence Pertinent Past History: Poly-substance use disorder. Denies significant PMH. - Physical Exam Results Vital Signs: Vital Signs Temperature 98.1 F 03/28/18 22:52 Pulse Rate 73 03/28/18 22:52 Respiratory Rate 18 03/29/18 03:30 Blood Pressure 147/91 03/28/18 22:52 O2 Sat by Pulse Oximetry (%) Pertinent Admission Physical Exam Findings: Withdrawal symptoms. Laboratory Tests 03/26/18 03/26/18 03/26/18 07:40 07:40 07:40 WBC 3.4 L RBC 4.95 Hgb 13.4 Hct 40.7 MCV 82.4 MCH 27.1 MCHC 32.9 RDW 16.2 H Plt Count 215 MPV 8.6 Sodium 142 Potassium 4.5 Chloride 106 Carbon Dioxide 29 D Anion Gap 7 L BUN 12 Creatinine 0.9 Creat Clearance w eGFR > 60 Random Glucose 97 D Calcium 8.6 Total Bilirubin 0.4 AST 67 H D ALT 52 D Alkaline Phosphatase 101 Total Protein 7.9 Albumin 4.0 Urine Color Urine Appearance Urine pH Ur Specific [place] Urine Protein Urine Glucose (UA) Urine Ketones Urine Blood Urine Nitrite Urine Bilirubin Urine Urobilinogen Ur Leukocyte Esterase RPR Titer Nonreactive 03/26/18 09:00 WBC RBC Hgb Hct MCV MCH MCHC RDW Plt Count MPV Sodium Potassium Chloride Carbon Dioxide Anion Gap BUN Creatinine Creat Clearance w eGFR Random Glucose Calcium Total Bilirubin AST ALT Alkaline Phosphatase Total Protein Albumin Urine Color Yellow Urine Appearance Clear Urine pH 5.0 D Ur Specific [place] 1.021 Urine Protein Negative Urine Glucose (UA) Negative Urine Ketones Negative Urine Blood Negative Urine Nitrite Negative Urine Bilirubin Negative Urine Urobilinogen 2.0 Ur Leukocyte Esterase Negative RPR Titer Labs reviewed. - Treatment Hospital Course: Detox Protocol Followed, Detoxed Safely, Responded well, Discharged Condition Good - Medication Discharge Medications: Ambulatory Orders NK [No Known Home Medication] 01/28/15 - Diagnosis (1) Alcohol dependence with uncomplicated withdrawal Status: Acute (2) Cocaine dependence Status: Acute Qualifiers: Substance use status: uncomplicated Qualified Code(s): F14.20 - Cocaine dependence, uncomplicated (3) Nicotine dependence Status: Acute Qualifiers: Nicotine product type: cigarettes Substance use status: in withdrawal Qualified Code(s): F17.213 - Nicotine dependence, cigarettes, with withdrawal (4) Sedative hypnotic or anxiolytic dependence Status: Acute (5) Cannabis dependence, uncomplicated Status: Chronic - AMA Did Patient Leave Against Medical Advice: No
== END 2018-03-29 09:30 | disposition home or self-care (01) | DRG 774 ==
LOC: YASAS 17:15 → Y6N 19:59
PROVIDERS: ADMIT Surgery; ATTEND Surgery
PROC: HZ2ZZZZ Detoxification Services for Substance Abuse Treatment (ICD-10-PCS; principal; 2018-03-25)
DX: F10.230 Alcohol dependence with withdrawal, uncomplicated (principal); F13.20 Sedative, hypnotic or anxiolytic dependence, uncomplicated; F14.20 Cocaine dependence, uncomplicated; F12.20 Cannabis dependence, uncomplicated; F17.213 Nicotine dependence, cigarettes, with withdrawal; F19.24 Other psychoactive substance dependence with psychoactive substance-induced mood disorder; J45.22 Mild intermittent asthma with status asthmaticus
CPT/HCPCS: 36415; 80053; 81003; 85027; 86593; 93005; 93010

== ENCOUNTER 2018-03-30 09:28 | Inpatient (IN) | payer OTHER ==
[2018-03-30 09:44] VITALS: BMI 24.7
--- NOTE | 2018-03-30 13:01 | HP ---
Admission [facility] Chief Complaint: I finished detox and I want to go to rehab. Allergies/Adverse Reactions: Allergies Allergy/AdvReac Type Severity Reaction Status Date / Time No Known Allergies Allergy Verified 03/25/18 21:43 History of Present Illness: M pt with > 40 yr h/o alchol abuse and deep. seeking rehab. Exam Limitations: No Limitations - Ebola screening Have you traveled outside of the country in the last 21 days: No (N) Have you had contact with anyone from an Ebola affected area: No Have you been sick,other than usual withdrawal symptoms: No Do you have a fever: No - Review of Systems Constitutional: No Symptoms Reported, Unintentional Wgt. Loss EENT: reports: Hearing Loss, Dental Problems (mutiple missing teeth) Respiratory: reports: No Symptoms reported Cardiac: reports: No Symptoms Reported GI: reports: No Symptoms Reported : reports: No Symptoms Reported, Frequency Integumentary: reports: Change in Hair/Nails Neuro: reports: No Symptoms reported Endocrine: reports: No Symptoms Reported Hematology: reports: No Symptoms Reported Psychiatric: reports: No Sypmtoms Reported, Orientated x3 Other Systems: Reviewed and Negative Patient History - Patient Medical History Hx Anemia: No Hx Asthma: No Hx Chronic Obstructive Pulmonary Disease (COPD): No Hx Cancer: No Hx Cardiac Disorders: No Hx Congestive Heart Failure: No Hx Hypertension: No Hx Hypercholesterolemia: No Hx Pacemaker: No HX Cerebrovascular Accident: No Hx Seizures: No Hx Dementia: No Hx Diabetes: No Hx Gastrointestinal Disorders: No Hx Liver Disease: No Hx Genitourinary Disorders: No Hx Sexually Transmitted Disorders: No Hx Renal Disease (ESRD): No Hx Thyroid Disease: No Hx Human Immunodeficiency Virus (HIV): No (LAST TESTED FOUR MONTHS AGO NEGATIVE) Hx Hepatitis C: No Hx Depression: No Hx Suicide Attempt: No Hx Bipolar Disorder: No Hx Schizophrenia: No - Patient Surgical History Past Surgical History: Yes Hx Neurologic Surgery: No Hx Cataract Extraction: No Hx Cardiac Surgery: No Hx Lung Surgery: No Hx Breast Surgery: No Hx Breast Biopsy: No Hx Abdominal Surgery: No Hx Appendectomy: No Hx Cholecystectomy: No Hx Genitourinary Surgery: No Hx Section: No Hx Orthopedic Surgery: No Other Surgical History: bilateral inguinal hernia repair in 2004 Anesthesia Reaction: No - PPD History Date: 03/28/18 Results: 0 mm PPD to be Administered?: No - Reproductive History Patient is a Female of Child Bearing Age (11 -55 yrs old): No - Smoking Cessation Smoking history: Current some day smoker Have you smoked in the past 12 months: Yes Aproximately how many cigarettes per day: 2 Cigars Per Day: 0 Hx Chewing Tobacco Use: No Initiated information on smoking cessation: Yes 'Breaking Loose' booklet given: 03/30/18 - Substance & Tx. History Hx Alcohol Use: Yes Hx Substance Use: Yes Substance Use Type: Alcohol, Cocaine, Marijuana Hx Substance Use Treatment: Yes - Substances Abused Alcohol Route: Oral Frequency: Daily Amount used: 6-9 beers Age of first use: 21 Date of Last Use: 03/25/18 Cocaine Route: Smoking Frequency: Daily Amount used: $40 Age of first use: 42 Date of Last Use: 03/25/18 Marijuana/Hashish Route: Smoking Frequency: Daily Amount used: $10-20 Age of first use: 17 Date of Last Use: 03/25/18 Family Disease History - Family Disease History Family History: Denies Family Disease History: Other: Father (), Mother () Admission Physical Exam S - Vital Signs Vital Signs: Vital Signs - 24 hr 03/30/18 09:42 Temperature 99.2 F Pulse Rate 98 H Respiratory 19 Rate Blood Pressure 131/95 62 y/o m pt aox3 in nad ambulating - Physical General Appearance: Yes: No Apparent Distress, Thin HEENTM: Yes: EOMI, Hearing grossly Normal, Normocephalic, Normal Voice Respiratory: Yes: Within Normal Limits, Chest Non-Tender, Lungs Clear, Normal Breath Sounds, No Respiratory Distress Neck: Yes: Supple, Trachea in good position Breast: Yes: Within Normal Limits Cardiology: Yes: Regular Rhythm, Regular Rate, S1, S2 Abdominal: Yes: Normal Bowel Sounds, Non Tender, Flat, Soft, Organomegaly, Surgical Scar (cherie ell healed HERNIA SCARS) Genitourinary: Yes: Frequency Back: Yes: Decreased Range of Motion Musculoskeletal: Yes: Back pain 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: Yes: stave grader II-XII NML intact, Fully Oriented, Alert Integumentary: Yes: Normal Color Lymphatic: Yes: Within Normal Limits - Diagnostic (1) Alcohol dependence with uncomplicated withdrawal Current Visit: Yes Status: Chronic (2) Cocaine dependence Current Visit: Yes Status: Chronic Qualifiers: Substance use status: with other cocaine-induced disorder Qualified Code(s) : F14.288 - Cocaine dependence with other cocaine-induced disorder; F14.28 - Cocaine dependence with other cocaine-induced disorder (3) Nicotine dependence Current Visit: Yes Status: Chronic Qualifiers: Nicotine product type: cigarettes Substance use status: in withdrawal Qualified Code(s): F17.213 - Nicotine dependence, cigarettes, with withdrawal Cleared for Admission S - Detox or Rehab Claeared for Rehab Admission: Yes S Breath Alcohol Content Breath Alcohol Content: 0 Urine Drug Screen - Results Drug Screen Negative: No Urine Drug Screen Results: THC-Marijuana, BZO-Benzodiazepines
[2018-03-30] MEDS ORDERED: P-EPHED 60MG/TRIPROLIDI 2.5MG TABLET PO PRN (13:29)
[2018-03-30] MEDS ORDERED: MAGNESIUM CITRATE 300 ML BOTTLE PO PRN (13:29)
[2018-03-30] MEDS ORDERED: MENTHOL/PHENOL 1 EACH UD MM PRN (13:29)
[2018-03-30] MEDS ORDERED: MAGNESIUM HYDROX 2400MG/30ML ORAL SUSPENSION 30 ML CUP PO PRN (13:29)
[2018-03-30] MEDS ORDERED: NICOTINE POLACRILEX 2 MG GUM BUC PRN (13:29)
[2018-03-30] MEDS ORDERED: LOPERAMIDE HCL 2 MG CAPSULE PO PRN (13:29)
[2018-03-30] MEDS ORDERED: IBUPROFEN 400 MG TABLET (FP) PO PRN (13:29)
[2018-03-30] MEDS ORDERED: MAG HYDROX/AL HYDROX/SIMETH 30 ML UNIT-DOSE CUP PO PRN (13:29)
--- NOTE | 2018-03-30 16:57 | HP ---
Psychiatrist Admission - Data Date of interview: 03/30/18 Admission source: [facility] Identifying data: First admission to [address] for this 62 y/o AA male seeking rehabilitation after completionof detoxification for alcohol,xanax, cocaine and cannabis dependence.Patient introduces self as ,domiciled, unemployed but declines to discuss number of dependents.Supported by relatives. Medical History: Patient endorses good general health.Records indicate a history of bilateral inguinal herniorraphy (2004). Psychiatric History: Patient denies. Physical/Sexual Abuse/Trauma History: Patient denies. Additional Comment: Profile of substance abuse is discussed with the patient.Mr Arroyo admits to using alcohol,cocaine and marihuana on a daily basis as reported in this segment of [facility] document : Smoking history: Current some day smoker. Have you smoked in the past 12 months: Yes. Aproximately how many cigarettes per day: 2. Cigars Per Day: 0. Hx Chewing Tobacco Use: No. Initiated information on smoking cessation: Yes. 'Breaking Loose' booklet given : 03/30/18. - Substance & Tx. History. Hx Alcohol Use: Yes. Hx Substance Use : Yes. Substance Use Type: Alcohol, Cocaine, Marijuana. Hx Substance Use Treatment: Yes. - Substances Abused. Alcohol. Route: Oral. Frequency: Daily. Amount used: 6-9 beers. Age of first use: 21. Date of Last Use: . Cocaine. Route: Smoking. Frequency: Daily. Amount used: $40. Age of first use: 42. Date of Last Use: 03/25/18. Marijuana/Hashish. Route: Smoking. Frequency: Daily. Amount used: $10-20. Age of first use: 17. Date of Last Use: 03/25/18. Urine Drug Screen Results: THC-Marijuana, BZO- Benzodiazepines.Noted on admission. Vital Signs: Vital Signs - 24 hr 03/30/18 09:42 Temperature 99.2 F Pulse Rate 98 H Respiratory 19 Rate Blood Pressure 131/95 Allergies/Adverse Reactions: Allergies Allergy/AdvReac Type Severity Reaction Status Date / Time No Known Allergies Allergy Verified 03/25/18 21:43 - Substance Abuse/Tx History Hx Alcohol Use: Yes Hx Substance Use: Yes (nicotine,alcohol,cannabis and cocaine) Substance Use Type: Alcohol, Cocaine, Marijuana Hx Substance Use Treatment: Yes Mental Status Exam - Mental Status Exam Alert and Oriented to: Time, Place, Person Cognitive Function: Good Patient Appearance: Well Groomed Mood: Hopeful, Irritable Affect: Appropriate, Normal Range Patient Behavior: Appropriate, Cooperative Speech Pattern: Clear Voice Loudness: Normal Thought Process: Intact, Goal Oriented Thought Disorder: Not Present Hallucinations: Denies Suicidal Ideation: Denies Homicidal Ideation: Denies Insight/Judgement: Fair Sleep: Well Appetite: Good Muscle strength/Tone: Normal Gait/Station: Normal Psychiatric Findings - Problem List ([place] 1, 2,3) (1) Alcohol dependence with uncomplicated withdrawal Current Visit: Yes Status: Chronic (2) Cannabis dependence, uncomplicated Current Visit: Yes Status: Chronic (3) Nicotine dependence Current Visit: Yes Status: Chronic Qualifiers: Nicotine product type: cigarettes Substance use status: in withdrawal Qualified Code(s): F17.213 - Nicotine dependence, cigarettes, with withdrawal - Initial Treatment Plan Initial Treatment Plan: Psychoeducation.Group and supportive therapy.Observation.
[2018-03-30] MEDS: THIAMINE HCL 100 MG TABLET (FP) PO SCH (21:46)
[2018-03-30] MEDS ORDERED: MELATONIN 5 MG TABLETS PO PRN (22:00)
[2018-03-31] MEDS: ACETAMINOPHEN 325 MG TABLET (FP) PO PRN (06:10)
[2018-03-31] MEDS: guaiFENesin/D-METHORPHAN HB 10 ML UNIT-DOSE CUPS PO PRN (06:10)
[2018-03-31] MEDS: PRENATAL VITAMINS W/ FOLIC ACID TABLET (FP) PO SCH (10:16)
[2018-03-31] MEDS: THIAMINE HCL 100 MG TABLET (FP) PO SCH (21:46)
[2018-04-01] MEDS: PRENATAL VITAMINS W/ FOLIC ACID TABLET (FP) PO SCH (09:53)
[2018-04-01] MEDS: THIAMINE HCL 100 MG TABLET (FP) PO SCH (21:40)
[2018-04-02] MEDS: PRENATAL VITAMINS W/ FOLIC ACID TABLET (FP) PO SCH (09:56)
[2018-04-02] MEDS: guaiFENesin/D-METHORPHAN HB 10 ML UNIT-DOSE CUPS PO PRN (13:58)
[2018-04-02] MEDS: ACETAMINOPHEN 325 MG TABLET (FP) PO PRN (13:58)
[2018-04-02] MEDS: THIAMINE HCL 100 MG TABLET (FP) PO SCH (22:51)
[2018-04-03] MEDS: ACETAMINOPHEN 325 MG TABLET (FP) PO PRN ×2 (09:19→15:46)
[2018-04-03] MEDS: guaiFENesin/D-METHORPHAN HB 10 ML UNIT-DOSE CUPS PO PRN ×2 (09:19→15:46)
[2018-04-03] MEDS: PRENATAL VITAMINS W/ FOLIC ACID TABLET (FP) PO SCH (09:19)
[2018-04-03] MEDS: THIAMINE HCL 100 MG TABLET (FP) PO SCH (22:02)
[2018-04-04] MEDS: ACETAMINOPHEN 325 MG TABLET (FP) PO PRN ×2 (01:20→15:45)
[2018-04-04] MEDS: guaiFENesin/D-METHORPHAN HB 10 ML UNIT-DOSE CUPS PO PRN ×2 (01:21→15:45)
[2018-04-04] MEDS: PRENATAL VITAMINS W/ FOLIC ACID TABLET (FP) PO SCH (09:43)
[2018-04-04] MEDS: THIAMINE HCL 100 MG TABLET (FP) PO SCH (23:23)
[2018-04-05] MEDS: PRENATAL VITAMINS W/ FOLIC ACID TABLET (FP) PO SCH (10:24)
[2018-04-05] MEDS: THIAMINE HCL 100 MG TABLET (FP) PO SCH (21:53)
[2018-04-06] MEDS: PRENATAL VITAMINS W/ FOLIC ACID TABLET (FP) PO SCH (10:18)
--- NOTE | 2018-04-06 14:23 | EKG ---
Test Reason : Blood Pressure : / mmHG Vent. Rate : 088 BPM Atrial Rate : 088 BPM P-R Int : 132 ms QRS Dur : 088 ms QT Int : 350 ms P-R-T Axes : 080 032 -29 degrees QTc Int : 423 ms POOR DATA QUALITY, INTERPRETATION MAY BE ADVERSELY AFFECTED NORMAL SINUS RHYTHM T WAVE ABNORMALITY, CONSIDER LATERAL ISCHEMIA ABNORMAL ECG WHEN COMPARED WITH ECG OF 26-MAR-2018 00:48, PREMATURE ATRIAL COMPLEXES ARE NO LONGER PRESENT Confirmed by MONTEZ CARRIZALES MD ([id number]) on 04/06/2018 2:22:55 PM Referred By: Confirmed By:MONTEZ CARRIZALES MD
[2018-04-06] MEDS: THIAMINE HCL 100 MG TABLET (FP) PO SCH (21:40)
[2018-04-07] MEDS: PRENATAL VITAMINS W/ FOLIC ACID TABLET (FP) PO SCH (10:37)
[2018-04-07] MEDS: THIAMINE HCL 100 MG TABLET (FP) PO SCH (21:54)
[2018-04-08 06:47] VITALS: BP 135/85; PULSE 64; TEMP 98.1
--- NOTE | 2018-04-08 10:19 | PN ---
[facility] Progress Note Note: Patient completed this program today(early discharge due to family reason).He has met his treatment goals partially.patient will continue to address his issues on outpatient basis.Patient is stable for discharge today.
== END 2018-04-08 10:05 | disposition home or self-care (01) | DRG 772 ==
LOC: YASAS 09:28 → Y3W 12:40
PROVIDERS: ADMIT Psychiatry & Neurology Psychiatry; ATTEND Psychiatry & Neurology Psychiatry
PROC: HZ42ZZZ Group Counseling for Substance Abuse Treatment, Cognitive-Behavioral (ICD-10-PCS; principal; 2018-03-30)
DX: F10.230 Alcohol dependence with withdrawal, uncomplicated (principal); F14.288 Cocaine dependence with other cocaine-induced disorder; F12.20 Cannabis dependence, uncomplicated; F17.213 Nicotine dependence, cigarettes, with withdrawal
CPT/HCPCS: 93005; 93010

== ENCOUNTER 2018-05-13 15:35 | Inpatient (IN) | payer OTHER ==
[2018-05-13 17:19] VITALS: BMI 22.6
--- NOTE | 2018-05-13 18:41 | HP ---
CIWA Score - CIWA Score Nausea/Vomitin-Mild Nausea/No Vomiting Muscle Tremors: 3 Anxiety: 2 Agitation: 1-Slight > Activity Paroxysmal Sweats: 2 Orientation: 1-Uncertain about Date Tacttile Disturbances: 1-Very Mild Itch/Numbness Auditory Disturbances: 1-Very Mild Visual Disturbances: 1-Very Mild Sensitivity Headache: 2-Mild CIWA-Ar Total Score: 15 Admission ROS [facility] - HPI Chief Complaint: WITHDRAWAL SYMPTOMS Allergies/Adverse Reactions: Allergies Allergy/AdvReac Type Severity Reaction Status Date / Time No Known Allergies Allergy Verified 03/25/18 21:43 History of Present Illness: 62 Y.O. MAN WITH AN EXTENSIVE HISTORY OF ALCOHOL AND MARIJUANA DEPENDENCE IS HERE SEEKING DETOX. HE HAS HAD MULTIPLE ADMISSIONS FOR DETOX/REHAB. HIS LAST ADMISSION TO DETOX WAS FROM 03/25/18-03/29/18. LONGEST PERIOD OF SOBRIETY HAS BEEN 8 YEARS. Exam Limitations: Intoxication - Ebola screening Have you traveled outside of the country in the last 21 days: No Have you had contact with anyone from an Ebola affected area: No Have you been sick,other than usual withdrawal symptoms: No - Review of Systems Constitutional: Loss of Appetite, Unintentional Wgt. Loss EENT: reports: Tearing, Nose Congestion Respiratory: reports: No Symptoms reported Cardiac: reports: No Symptoms Reported GI: reports: No Symptoms Reported : reports: No Symptoms Reported Musculoskeletal: reports: No Symptoms Reported Integumentary: reports: No Symptoms Reported Neuro: reports: No Symptoms reported Endocrine: reports: No Symptoms Reported Hematology: reports: No Symptoms Reported Psychiatric: reports: Judgement Intact, Mood/Affect Appropiate Other Systems: Reviewed and Negative Patient History - Patient Medical History Hx Anemia: No Hx Asthma: Yes (CHILDHOOD ASTHMA; NOT TAKING MEDS CURRENTLY ) Hx Chronic Obstructive Pulmonary Disease (COPD): No Hx Cancer: No Hx Cardiac Disorders: No Hx Congestive Heart Failure: No Hx Hypertension: No Hx Hypercholesterolemia: No Hx Pacemaker: No HX Cerebrovascular Accident: No Hx Seizures: No Hx Dementia: No Hx Diabetes: No Hx Gastrointestinal Disorders: No Hx Liver Disease: No Hx Genitourinary Disorders: No Hx Sexually Transmitted Disorders: No Hx Renal Disease (ESRD): No Hx Thyroid Disease: No Hx Human Immunodeficiency Virus (HIV): No (LAST TESTED FOUR MONTHS AGO NEGATIVE) Hx Hepatitis C: No Hx Depression: Yes Hx Suicide Attempt: No Hx Bipolar Disorder: No Hx Schizophrenia: No - Patient Surgical History Past Surgical History: Yes Hx Neurologic Surgery: No Hx Cataract Extraction: No Hx Cardiac Surgery: No Hx Lung Surgery: No Hx Breast Surgery: No Hx Breast Biopsy: No Hx Abdominal Surgery: No Hx Appendectomy: No Hx Cholecystectomy: No Hx Genitourinary Surgery: No Hx Section: No Hx Orthopedic Surgery: No Other Surgical History: bilateral inguinal hernia repair in 2004 Anesthesia Reaction: No - PPD History Previous Implant?: Yes Documented Results: Negative w/proof Implanted On Prior [facility] Admission?: Yes Date: 03/28/18 Results: 0 mm PPD to be Administered?: No - Reproductive History Patient is a Female of Child Bearing Age (11 -55 yrs old): No - Smoking Cessation Smoking history: Current some day smoker Have you smoked in the past 12 months: Yes Aproximately how many cigarettes per day: 2 Cigars Per Day: 0 Hx Chewing Tobacco Use: No Initiated information on smoking cessation: Yes 'Breaking Loose' booklet given: 05/13/18 - Substance & Tx. History Hx Alcohol Use: Yes Hx Substance Use: Yes Substance Use Type: Alcohol, Marijuana Hx Substance Use Treatment: Yes (DETOX AND REHAB: 03/25/18-04/08/18 AT [facility] ) - Substances Abused Alcohol Route: Oral Frequency: Daily Amount used: 8-10 24OZ OF BEER Age of first use: 21 Date of Last Use: 05/13/18 Marijuana/Hashish Route: Smoking Frequency: Daily Amount used: $20 Age of first use: 21 Date of Last Use: 05/12/18 Family Disease History - Family Disease History Family Disease History: Other: Father (), Mother () Admission Physical Exam [facility] - Vital Signs Vital Signs: Vital Signs - 24 hr 05/13/18 17:17 Temperature 98.7 F Pulse Rate 110 H Respiratory 18 Rate Blood Pressure 100/60 - Physical General Appearance: Yes: Alcohol on Breath, Intoxicated, Tremorous, Irritable, Anxious HEENTM: Yes: Hearing grossly Normal, Normal ENT Inspection, Normocephalic Respiratory: Yes: Chest Non-Tender, Lungs Clear, Normal Breath Sounds, No Respiratory Distress, No Accessory Muscle Use Neck: Yes: Within Normal Limits Breast: Yes: Breast Exam Deferred Cardiology: Yes: Regular Rhythm, Tachycardia Abdominal: Yes: Normal Bowel Sounds, Non Tender Genitourinary: Yes: Other (NO COMPLAINTS REPORTED) Musculoskeletal: Yes: Within Normal Limits Extremities: Yes: Tremors 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: Yes: Alert, Normal Mood/Affect, Normal Response Integumentary: Yes: Normal Color, Dry, Warm Lymphatic: Yes: Within Normal Limits - Diagnostic (1) Alcohol dependence with uncomplicated withdrawal Current Visit: Yes Status: Chronic (2) Asthma Current Visit: Yes Status: Suspected Qualifiers: Asthma severity: mild Asthma persistence: intermittent Asthma complication type: with status asthmaticus Qualified Code(s): J45.22 - Mild intermittent asthma with status asthmaticus (3) Cannabis dependence, uncomplicated Current Visit: Yes Status: Chronic (4) Nicotine dependence Current Visit: Yes Status: Chronic Qualifiers: Nicotine product type: cigarettes Substance use status: in withdrawal Qualified Code(s): F17.213 - Nicotine dependence, cigarettes, with withdrawal Cleared for Admission S - Detox or Rehab [facility] Level of Care: Medically Managed Detox Regimen/Protocol: Librium S Breath Alcohol Content Breath Alcohol Content: 0.278 Urine Drug Screen - Results Drug Screen Negative: No Urine Drug Screen Results: THC-Marijuana, BZO-Benzodiazepines
[2018-05-13] MEDS ORDERED: guaiFENesin/D-METHORPHAN HB 10 ML UNIT-DOSE CUPS PO PRN (18:49)
[2018-05-13] MEDS ORDERED: P-EPHED 60MG/TRIPROLIDI 2.5MG TABLET PO PRN (18:49)
[2018-05-13] MEDS ORDERED: MENTHOL/PHENOL 1 EACH UD MM PRN (18:49)
[2018-05-13] MEDS ORDERED: chlordiazePOXIDE HCL 25 MG CAPSULE PO ONE (18:49)
[2018-05-13] MEDS ORDERED: hydrOXYzine PAMOATE 50 MG CAPSULE (FP) PO PRN (18:49)
[2018-05-13] MEDS ORDERED: IBUPROFEN 400 MG TABLET (FP) PO PRN (18:49)
[2018-05-13] MEDS ORDERED: MAGNESIUM CITRATE 300 ML BOTTLE PO PRN (18:49)
[2018-05-13] MEDS ORDERED: LOPERAMIDE HCL 2 MG CAPSULE PO PRN (18:49)
[2018-05-13] MEDS ORDERED: ACETAMINOPHEN 325 MG TABLET (FP) PO PRN (18:49)
[2018-05-13] MEDS ORDERED: chlordiazePOXIDE HCL 25 MG CAPSULE PO PRN (18:49)
[2018-05-13] MEDS ORDERED: MAGNESIUM HYDROX 2400MG/30ML ORAL SUSPENSION 30 ML CUP PO PRN (18:49)
[2018-05-13] MEDS ORDERED: MAG HYDROX/AL HYDROX/SIMETH 30 ML UNIT-DOSE CUP PO PRN (18:49)
[2018-05-13] MEDS: THIAMINE HCL 100 MG TABLET (FP) PO SCH (21:21)
[2018-05-13] MEDS ORDERED: MELATONIN 5 MG TABLETS PO PRN (22:00)
[2018-05-13] MEDS: chlordiazePOXIDE HCL 25 MG CAPSULE PO SCH (22:37)
[2018-05-13 23:18] LABS: URINE APPEARANCE CLEAR; URINE BILIRUBIN NEGATIVE (<2.0 mg/dL); URINE COLOR LTYELLOW; URINE GLUCOSE (UA) NEGATIVE (NEGATIVE); URINE KETONE NEGATIVE (NEGATIVE); URINE LEUK ESTERASE NEGATIVE (NEGATIVE); URINE NITRITE NEGATIVE (NEGATIVE); URINE PROTEIN NEGATIVE (NEGATIVE); URINE UROBILINOGEN NEGATIVE mg/dL (0.2-1.0)
[2018-05-14] MEDS: chlordiazePOXIDE HCL 25 MG CAPSULE PO SCH ×4 (05:54→22:08)
[2018-05-14 10:08] LABS: HEMATOCRIT 40.1 % (35.4-49); HEMOGLOBIN 12.7 GM/dL (11.7-16.9); MCH 25.8 pg (25.7-33.7); MCHC 31.6 g/dl (32.0-35.9); MEAN CELL VOLUME 81.7 fl (80-96); MEAN PLT VOLUME 8.8 fl (7.5-11.1); PLATELET COUNT 211 K/MM3 (134-434); WHITE BLOOD COUNT 11.1 K/mm3 (4.0-10.0)
--- NOTE | 2018-05-14 10:29 | PN ---
S CIWA - CIWA Score Nausea/Vomitin-No Nausea/No Vomiting Muscle Tremors: 4-Moderate,w/Arms Extend Anxiety: 3 Agitation: 4-Moderately Restless Paroxysmal Sweats: 2 Orientation: 0-Oriented Tacttile Disturbances: 0-None Auditory Disturbances: 0-None Visual Disturbances: 0-None Headache: 0-None Present CIWA-Ar Total Score: 13 [facility] Progress Note (SOAP) Subjective: shakes sweats interrupted sleep body aches irritable Objective: 05/14/18 10:27 Vital Signs Temperature 98.2 F 05/14/18 07:55 Pulse Rate 78 05/14/18 07:55 Respiratory Rate 18 05/14/18 07:55 Blood Pressure 103/57 L 05/14/18 07:55 O2 Sat by Pulse Oximetry (%) Laboratory Tests 05/13/18 05/14/18 23:00 07:00 WBC 11.1 H RBC 4.90 Hgb 12.7 Hct 40.1 MCV 81.7 MCH 25.8 MCHC 31.6 L RDW 16.0 H Plt Count 211 MPV 8.8 Urine Color Ltyellow Urine Appearance Clear Urine pH 5.0 Ur Specific [place] 1.017 Urine Protein Negative Urine Glucose (UA) Negative Urine Ketones Negative Urine Blood Negative Urine Nitrite Negative Urine Bilirubin Negative Urine Urobilinogen Negative Ur Leukocyte Esterase Negative rest of labs pending aaox3 ambulating no acute distress Assessment: 05/14/18 10:29 withdrawal sx Plan: continue detox increase fluids f/u pending labs
[2018-05-14 10:37] LABS: ALBUMIN 3.2 g/dl (3.4-5.0); ALK PHOS 76 U/L (45-117); ANION GAP 7 MMOL/L (8-16); BILIRUBIN,TOTAL 0.6 mg/dL (0.2-1); BLOOD UREA NITROGEN 19 mg/dL (7-18); CALCIUM 8.8 mg/dL (8.5-10.1); CHLORIDE 108 mmol/L (98-107); CO2 26 mmol/L (21-32); CREATININE 0.9 mg/dL (0.55-1.3); GLUCOSE,RANDOM 135 mg/dL (74-106); SGOT/AST 23 U/L (15-37); SGPT/ALT 21 U/L (13-61); SODIUM 141 mmol/L (136-145); TOT PROT 6.9 g/dl (6.4-8.2)
[2018-05-14] MEDS: PRENATAL VITAMINS W/ FOLIC ACID TABLET (FP) PO SCH (10:39)
--- NOTE | 2018-05-14 12:13 | EKG ---
Test Reason : Blood Pressure : / mmHG Vent. Rate : 094 BPM Atrial Rate : 094 BPM P-R Int : 144 ms QRS Dur : 088 ms QT Int : 352 ms P-R-T Axes : 073 049 -45 degrees QTc Int : 440 ms SINUS RHYTHM WITH SINUS ARRHYTHMIA WITH FREQUENT PREMATURE VENTRICULAR COMPLEXES T WAVE ABNORMALITY, CONSIDER INFEROLATERAL ISCHEMIA ABNORMAL ECG WHEN COMPARED WITH ECG OF 30-MAR-2018 15:10, PREMATURE VENTRICULAR COMPLEXES ARE NOW PRESENT INVERTED T WAVES HAVE REPLACED NONSPECIFIC T WAVE ABNORMALITY IN INFERIOR LEADS Confirmed by JORGE BERNSTEIN MD ([id number]) on 05/14/2018 12:12:36 PM Referred By: Confirmed By:JORGE BERNSTEIN MD
[2018-05-14] MEDS: THIAMINE HCL 100 MG TABLET (FP) PO SCH (22:08)
[2018-05-15] MEDS: chlordiazePOXIDE HCL 25 MG CAPSULE PO SCH ×3 (05:32→17:18)
[2018-05-15] MEDS: PRENATAL VITAMINS W/ FOLIC ACID TABLET (FP) PO SCH (10:21)
--- NOTE | 2018-05-15 11:26 | PN ---
S CIWA - CIWA Score Nausea/Vomitin-No Nausea/No Vomiting Muscle Tremors: 3 Anxiety: 3 Agitation: 4-Moderately Restless Paroxysmal Sweats: 2 Orientation: 0-Oriented Tacttile Disturbances: 0-None Auditory Disturbances: 0-None Visual Disturbances: 0-None Headache: 0-None Present CIWA-Ar Total Score: 12 BHS Progress Note (SOAP) Subjective: sweats anxiety restless I take blood pressure medication Objective: 05/15/18 11:24 Vital Signs Temperature 97.9 F 05/15/18 10:00 Pulse Rate 83 05/15/18 10:00 Respiratory Rate 18 05/15/18 10:00 Blood Pressure 134/81 05/15/18 10:00 O2 Sat by Pulse Oximetry (%) Laboratory Tests 05/13/18 05/14/18 05/14/18 23:00 07:00 07:00 WBC 11.1 H RBC 4.90 Hgb 12.7 Hct 40.1 MCV 81.7 MCH 25.8 MCHC 31.6 L RDW 16.0 H Plt Count 211 MPV 8.8 Sodium 141 Potassium 4.0 Chloride 108 H Carbon Dioxide 26 Anion Gap 7 L BUN 19 H Creatinine 0.9 Creat Clearance w eGFR > 60 Random Glucose 135 H Calcium 8.8 Total Bilirubin 0.6 AST 23 ALT 21 Alkaline Phosphatase 76 Total Protein 6.9 Albumin 3.2 L Urine Color Ltyellow Urine Appearance Clear Urine pH 5.0 Ur Specific [place] 1.017 Urine Protein Negative Urine Glucose (UA) Negative Urine Ketones Negative Urine Blood Negative Urine Nitrite Negative Urine Bilirubin Negative Urine Urobilinogen Negative Ur Leukocyte Esterase Negative RPR Titer 05/14/18 07:00 WBC RBC Hgb Hct MCV MCH MCHC RDW Plt Count MPV Sodium Potassium Chloride Carbon Dioxide Anion Gap BUN Creatinine Creat Clearance w eGFR Random Glucose Calcium Total Bilirubin AST ALT Alkaline Phosphatase Total Protein Albumin Urine Color Urine Appearance Urine pH Ur Specific [place] Urine Protein Urine Glucose (UA) Urine Ketones Urine Blood Urine Nitrite Urine Bilirubin Urine Urobilinogen Ur Leukocyte Esterase RPR Titer Nonreactive aaox3 ambulating no acute distress Assessment: 05/15/18 11:25 withdrawal sx Plan: pt failed to say he takes medication for high blood pressure. medication norvasc confirmed with pharmacy last p/u was 05/2018 for norvasc 5mg. medication ordered continue detox increase fluids
[2018-05-15] MEDS: amLODIPine BESYLATE 5 MG TABLET (FP) PO SCH (15:22)
[2018-05-15] MEDS: THIAMINE HCL 100 MG TABLET (FP) PO SCH (23:26)
[2018-05-15] MEDS: chlordiazePOXIDE 5 MG CAPSULE PO SCH (23:26)
[2018-05-16] MEDS: chlordiazePOXIDE 5 MG CAPSULE PO SCH ×3 (05:34→18:15)
[2018-05-16] MEDS: PRENATAL VITAMINS W/ FOLIC ACID TABLET (FP) PO SCH (10:30)
[2018-05-16] MEDS: amLODIPine BESYLATE 5 MG TABLET (FP) PO SCH (10:30)
--- NOTE | 2018-05-16 14:35 | PN ---
S Progress Note Note: anxious, restless Vital Signs Temperature 98.1 F 05/16/18 10:49 Pulse Rate 72 05/16/18 10:49 Respiratory Rate 18 05/16/18 10:49 Blood Pressure 137/86 05/16/18 10:49 O2 Sat by Pulse Oximetry (%) Laboratory Last Values WBC 11.1 K/mm3 (4.0-10.0) H 05/14/18 07:00 RBC 4.90 M/mm3 (4.00-5.60) 05/14/18 07:00 Hgb 12.7 GM/dL (11.7-16.9) 05/14/18 07:00 Hct 40.1 % (35.4-49) 05/14/18 07:00 MCV 81.7 fl (80-96) 05/14/18 07:00 MCH 25.8 pg (25.7-33.7) 05/14/18 07:00 MCHC 31.6 g/dl (32.0-35.9) L 05/14/18 07:00 RDW 16.0 % (11.9-15.9) H 05/14/18 07:00 Plt Count 211 K/MM3 (134-434) 05/14/18 07:00 MPV 8.8 fl (7.5-11.1) 05/14/18 07:00 Sodium 141 mmol/L (136-145) 05/14/18 07:00 Potassium 4.0 mmol/L (3.5-5.1) 05/14/18 07:00 Chloride 108 mmol/L (98-107) H 05/14/18 07:00 Carbon Dioxide 26 mmol/L (21-32) 05/14/18 07:00 Anion Gap 7 MMOL/L (8-16) L 05/14/18 07:00 BUN 19 mg/dL (7-18) H 05/14/18 07:00 Creatinine 0.9 mg/dL (0.55-1.3) 05/14/18 07:00 Creat Clearance w eGFR > 60 (>60) 05/14/18 07:00 Random Glucose 135 mg/dL (74-106) H 05/14/18 07:00 Calcium 8.8 mg/dL (8.5-10.1) 05/14/18 07:00 Total Bilirubin 0.6 mg/dL (0.2-1) 05/14/18 07:00 AST 23 U/L (15-37) 05/14/18 07:00 ALT 21 U/L (13-61) 05/14/18 07:00 Alkaline Phosphatase 76 U/L (45-117) 05/14/18 07:00 Total Protein 6.9 g/dl (6.4-8.2) 05/14/18 07:00 Albumin 3.2 g/dl (3.4-5.0) L 05/14/18 07:00 Urine Color Ltyellow 05/13/18 23:00 Urine Appearance Clear 05/13/18 23:00 Urine pH 5.0 (5.0-8.0) 05/13/18 23:00 Ur Specific [place] 1.017 (1.010-1.035) 05/13/18 23:00 Urine Protein Negative (NEGATIVE) 05/13/18 23:00 Urine Glucose (UA) Negative (NEGATIVE) 05/13/18 23:00 Urine Ketones Negative (NEGATIVE) 05/13/18 23:00 Urine Blood Negative (NEGATIVE) 05/13/18 23:00 Urine Nitrite Negative (NEGATIVE) 05/13/18 23:00 Urine Bilirubin Negative (<2.0 mg/dL) 05/13/18 23:00 Urine Urobilinogen Negative mg/dL (0.2-1.0) 05/13/18 23:00 Ur Leukocyte Esterase Negative (NEGATIVE) 05/13/18 23:00 RPR Titer Nonreactive (NONREACTIVE) 05/14/18 07:00 Aox3 no distress ambulating in the unit withdrawal sx increase fluids continue detox continue to monitor
[2018-05-16 22:34] VITALS: BP 143/94; PULSE 82; TEMP 98.1
[2018-05-16] MEDS: THIAMINE HCL 100 MG TABLET (FP) PO SCH (22:55)
[2018-05-16] MEDS: chlordiazePOXIDE HCL 10 MG CAPSULE PO SCH (22:55)
[2018-05-17] MEDS: chlordiazePOXIDE HCL 10 MG CAPSULE PO SCH (06:20)
--- NOTE | 2018-05-17 15:19 | DS ---
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 I have not assess nor evaluate the patient - Physical Exam Results Vital Signs: Vital Signs Temperature 98.1 F 05/16/18 22:33 Pulse Rate 82 05/16/18 22:33 Respiratory Rate 18 05/17/18 00:30 Blood Pressure 143/94 05/16/18 22:33 O2 Sat by Pulse Oximetry (%) Pertinent Admission Physical Exam Findings: alcohol withdrawal sx Vital Signs Temperature 98.1 F 05/16/18 22:33 Pulse Rate 82 05/16/18 22:33 Respiratory Rate 18 05/17/18 00:30 Blood Pressure 143/94 05/16/18 22:33 O2 Sat by Pulse Oximetry (%) Laboratory Last Values WBC 11.1 K/mm3 (4.0-10.0) H 05/14/18 07:00 RBC 4.90 M/mm3 (4.00-5.60) 05/14/18 07:00 Hgb 12.7 GM/dL (11.7-16.9) 05/14/18 07:00 Hct 40.1 % (35.4-49) 05/14/18 07:00 MCV 81.7 fl (80-96) 05/14/18 07:00 MCH 25.8 pg (25.7-33.7) 05/14/18 07:00 MCHC 31.6 g/dl (32.0-35.9) L 05/14/18 07:00 RDW 16.0 % (11.9-15.9) H 05/14/18 07:00 Plt Count 211 K/MM3 (134-434) 05/14/18 07:00 MPV 8.8 fl (7.5-11.1) 05/14/18 07:00 Sodium 141 mmol/L (136-145) 05/14/18 07:00 Potassium 4.0 mmol/L (3.5-5.1) 05/14/18 07:00 Chloride 108 mmol/L (98-107) H 05/14/18 07:00 Carbon Dioxide 26 mmol/L (21-32) 05/14/18 07:00 Anion Gap 7 MMOL/L (8-16) L 05/14/18 07:00 BUN 19 mg/dL (7-18) H 05/14/18 07:00 Creatinine 0.9 mg/dL (0.55-1.3) 05/14/18 07:00 Creat Clearance w eGFR > 60 (>60) 05/14/18 07:00 Random Glucose 135 mg/dL (74-106) H 05/14/18 07:00 Calcium 8.8 mg/dL (8.5-10.1) 05/14/18 07:00 Total Bilirubin 0.6 mg/dL (0.2-1) 05/14/18 07:00 AST 23 U/L (15-37) 05/14/18 07:00 ALT 21 U/L (13-61) 05/14/18 07:00 Alkaline Phosphatase 76 U/L (45-117) 05/14/18 07:00 Total Protein 6.9 g/dl (6.4-8.2) 05/14/18 07:00 Albumin 3.2 g/dl (3.4-5.0) L 05/14/18 07:00 Urine Color Ltyellow 05/13/18 23:00 Urine Appearance Clear 05/13/18 23:00 Urine pH 5.0 (5.0-8.0) 05/13/18 23:00 Ur Specific [place] 1.017 (1.010-1.035) 05/13/18 23:00 Urine Protein Negative (NEGATIVE) 05/13/18 23:00 Urine Glucose (UA) Negative (NEGATIVE) 05/13/18 23:00 Urine Ketones Negative (NEGATIVE) 05/13/18 23:00 Urine Blood Negative (NEGATIVE) 05/13/18 23:00 Urine Nitrite Negative (NEGATIVE) 05/13/18 23:00 Urine Bilirubin Negative (<2.0 mg/dL) 05/13/18 23:00 Urine Urobilinogen Negative mg/dL (0.2-1.0) 05/13/18 23:00 Ur Leukocyte Esterase Negative (NEGATIVE) 05/13/18 23:00 RPR Titer Nonreactive (NONREACTIVE) 05/14/18 07:00 lab noted - Treatment Hospital Course: Detox Protocol Followed, Detoxed Safely, Responded well, Discharged Condition Good, Rehab Referral Accepted Patient has Accepted a Rehab Referral to: [facility] - Medication Discharge Medications: Ambulatory Orders NK [No Known Home Medication] 01/28/15 - Diagnosis (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 (2) Weight loss Status: Acute (3) Alcohol dependence with uncomplicated withdrawal Status: Acute (4) Hypertension Status: Chronic Qualifiers: Hypertension type: essential hypertension Qualified Code(s): I10 - Essential (primary) hypertension (5) Nicotine dependence Status: Acute Qualifiers: Nicotine product type: cigarettes Substance use status: in withdrawal Qualified Code(s): F17.213 - Nicotine dependence, cigarettes, with withdrawal (6) Asthma Status: Chronic Qualifiers: Asthma severity: mild Asthma persistence: intermittent Asthma complication type: with status asthmaticus Qualified Code(s): J45.22 - Mild intermittent asthma with status asthmaticus - AMA Did Patient Leave Against Medical Advice: No
== END 2018-05-17 07:20 | disposition home or self-care (01) | DRG 775 ==
LOC: YASAS 15:35 → Y6N 19:17
PROC: HZ2ZZZZ Detoxification Services for Substance Abuse Treatment (ICD-10-PCS; principal; 2018-05-13)
DX: F10.230 Alcohol dependence with withdrawal, uncomplicated (principal); F13.20 Sedative, hypnotic or anxiolytic dependence, uncomplicated; F12.20 Cannabis dependence, uncomplicated; F17.213 Nicotine dependence, cigarettes, with withdrawal; F32.9 Major depressive disorder, single episode, unspecified; I10 Essential (primary) hypertension; J45.22 Mild intermittent asthma with status asthmaticus; R63.4 Abnormal weight loss; Z68.21 Body mass index [BMI] 21.0-21.9, adult
CPT/HCPCS: 36415; 80053; 81003; 85027; 86593; 93005; 93010

== ENCOUNTER 2018-06-23 12:12 | Inpatient (IN) | payer OTHER ==
[2018-06-23 13:06] VITALS: BMI 24.8
--- NOTE | 2018-06-23 13:47 | HP ---
CIWA Score Nausea/Vomitin-No Nausea/No Vomiting Muscle Tremors: 4-Moderate,w/Arms Extend Anxiety: 4-Mod. Anxious/Guarded Agitation: 4-Moderately Restless Paroxysmal Sweats: No Perspiration Orientation: 0-Oriented Tacttile Disturbances: 0-None Auditory Disturbances: 0-None Visual Disturbances: 0-None Headache: 0-None Present CIWA-Ar Total Score: 12 - Admission Criteria OASAS Guidelines: Admission for Medically Managed Detox: Requires at least one of the followin. CIWA greater than 12 2. Seizures within the past 24 hours 3. Delirium tremens within the past 24 hours 4. Hallucinations within the past 24 hours 5. Acute intervention needed for co occurring medical disorder 6. Acute intervention needed for co occurring psychiatric disorder 7. Severe withdrawal that cannot be handled at a lower level of care (continued vomiting, continued diarrhea, abnormal vital signs) requiring intravenous medication and/or fluids 8. Admission ROS [facility] Chief Complaint: ETOH/BZO WITHDRAWAL SYMPTOMS. Allergies/Adverse Reactions: Allergies Allergy/AdvReac Type Severity Reaction Status Date / Time No Known Allergies Allergy Verified 06/23/18 13:28 History of Present Illness: PATIENT PRESENTS FOR DETOX FROM ETOH/XANAX. PATIENT STARTED DRINKING AT AGE 21 AND DRINKS 9 24 OZ BEERS IN 24 HOURS PERIOD. LAST DRINK WAS THIS MORNING. PATIENT ALSO OCCASIONAL TAKES NON-PRESCRIBED XANAX WHEN HE HAS THE SHAKES. LAST TIME HE TOOK XANAX WAS 06/20/18. PATIENT DENIES, FALL, BLACKOUTS. PATIENT DRINKS FIRST THING IN THE MORNING. PATIENT HAS HAD MULTIPLE ADMISSIONS, 5-6 TIMES , IN DETOX THIS YEAR. LONGEST PERIOD OF SOBRIETY 8 YEARS. +MARIJUANA DEPENDENCE. DENIES SI/HI AND SUICIDE ATTEMPTS. Exam Limitations: No Limitations - Ebola screening Have you traveled outside of the country in the last 21 days: No Have you had contact with anyone from an Ebola affected area: No Have you been sick,other than usual withdrawal symptoms: No Do you have a fever: No - Review of Systems Constitutional: Changes in sleep, Weight Stable EENT: reports: No Symptoms Reported Respiratory: reports: No Symptoms reported Cardiac: reports: No Symptoms Reported GI: reports: Poor Appetite, Poor Fluid Intake, Abdominal cramping : reports: No Symptoms Reported Musculoskeletal: reports: No Symptoms Reported Integumentary: reports: No Symptoms Reported Neuro: reports: Headache, Tremors Endocrine: reports: Unexplained Weight Gain Hematology: reports: No Symptoms Reported Psychiatric: reports: Orientated x3, Anxious, Depressed Patient History - Patient Medical History Hx Anemia: No Hx Asthma: No Hx Chronic Obstructive Pulmonary Disease (COPD): No Hx Cancer: No Hx Cardiac Disorders: No Hx Congestive Heart Failure: No Hx Hypertension: No Hx Hypercholesterolemia: No Hx Pacemaker: No HX Cerebrovascular Accident: No Hx Seizures: No Hx Dementia: No Hx Diabetes: No Hx Gastrointestinal Disorders: No Hx Liver Disease: No Hx Genitourinary Disorders: No Hx Sexually Transmitted Disorders: No Hx Renal Disease (ESRD): No Hx Thyroid Disease: No Hx Human Immunodeficiency Virus (HIV): No (LAST TESTED FOUR MONTHS AGO NEGATIVE) Hx Hepatitis C: No Hx Depression: No Hx Suicide Attempt: No Hx Bipolar Disorder: No Hx Schizophrenia: No - Patient Surgical History Past Surgical History: Yes Hx Neurologic Surgery: No Hx Cataract Extraction: No Hx Cardiac Surgery: No Hx Lung Surgery: No Hx Breast Surgery: No Hx Breast Biopsy: No Hx Abdominal Surgery: No Hx Appendectomy: No Hx Cholecystectomy: No Hx Genitourinary Surgery: No Hx Orthopedic Surgery: No Other Surgical History: bilateral inguinal hernia repair in 2004 Anesthesia Reaction: No - PPD History Previous Implant?: Yes Documented Results: Negative w/proof Implanted On Prior [facility] Admission?: Yes Date: 03/28/18 Results: 0 mm PPD to be Administered?: No - Smoking Cessation Smoking history: Current some day smoker Have you smoked in the past 12 months: Yes Aproximately how many cigarettes per day: 5 Cigars Per Day: 0 Hx Chewing Tobacco Use: No Initiated information on smoking cessation: Yes 'Breaking Loose' booklet given: 06/23/18 - Substance & Tx. History Hx Alcohol Use: Yes Hx Substance Use: Yes Substance Use Type: Alcohol, Tranquilizers Hx Substance Use Treatment: Yes - Substances Abused Alcohol-vodka/beer Route: Oral Frequency: Daily Amount used: 1 pt./5-10 (24 oz.) Age of first use: 21 Date of Last Use: 06/23/18 Xanax Route: Oral Frequency: 1-3 times last 30 days Amount used: 2 mg. Age of first use: 61 Date of Last Use: 06/20/18 Family Disease History - Family Disease History Family Disease History: Other: Father (), Mother () Admission Physical Exam [facility] - Vital Signs Vital Signs: Vital Signs - 24 hr 06/23/18 13:04 Temperature 97.2 F L Pulse Rate 90 Respiratory 18 Rate Blood Pressure 101/54 L - Physical General Appearance: Yes: Alcohol on Breath, Intoxicated, Tremorous, Anxious HEENTM: Yes: EOMI, Hearing grossly Normal, Normocephalic, Normal Voice, CARLY, Pharynx Normal Respiratory: Yes: Chest Non-Tender, Lungs Clear, Normal Breath Sounds, No Respiratory Distress, No Accessory Muscle Use Neck: Yes: No masses,lesions,Nodules, Supple Breast: Yes: Breast Exam Deferred Cardiology: Yes: Regular Rhythm, Regular Rate, S1, S2 Abdominal: Yes: Normal Bowel Sounds, Non Tender, Soft Genitourinary: Yes: Within Normal Limits Back: Yes: Normal Inspection Musculoskeletal: Yes: full range of Motion, Gait Steady Extremities: Yes: Normal Capillary Refill, Normal Range of Motion, Tremors, Swelling 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: 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: 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 NML intact, Fully Oriented, Alert, Motor Strength 5/5, Normal Response, Depressed Affect Integumentary: Yes: Normal Color, Dry, Warm Lymphatic: Yes: Within Normal Limits - Diagnostic (1) Alcohol dependence with uncomplicated withdrawal Current Visit: Yes Status: Acute (2) Nicotine dependence Current Visit: Yes Status: Chronic Qualifiers: Nicotine product type: cigarettes Substance use status: in withdrawal Qualified Code(s): F17.213 - Nicotine dependence, cigarettes, with withdrawal (3) Sedative, hypnotic or anxiolytic use disorder, mild, abuse Current Visit: Yes Status: Chronic (4) Cannabis dependence, uncomplicated Current Visit: Yes Status: Chronic (5) Depression (emotion) Current Visit: Yes Status: Suspected Qualifiers: Depression Type: dysthymia Qualified Code(s): F34.1 - Dysthymic disorder Cleared for Admission [facility] - Detox or Rehab [facility] Level of Care: Medically Managed Detox Regimen/Protocol: Valium [facility] Breath Alcohol Content Breath Alcohol Content: 0.122 Urine Drug Screen - Results Drug Screen Negative: No Urine Drug Screen Results: THC-Marijuana, BZO-Benzodiazepines
[2018-06-23] MEDS ORDERED: MENTHOL/PHENOL 1 EACH UD MM PRN (13:56)
[2018-06-23] MEDS ORDERED: NICOTINE POLACRILEX 2 MG GUM BUC PRN (13:56)
[2018-06-23] MEDS ORDERED: hydrOXYzine PAMOATE 50 MG CAPSULE (FP) PO PRN (13:56)
[2018-06-23] MEDS ORDERED: MAGNESIUM CITRATE 300 ML BOTTLE PO PRN (13:56)
[2018-06-23] MEDS ORDERED: guaiFENesin/D-METHORPHAN HB 10 ML UNIT-DOSE CUPS PO PRN (13:56)
[2018-06-23] MEDS ORDERED: LOPERAMIDE HCL 2 MG CAPSULE PO PRN (13:56)
[2018-06-23] MEDS ORDERED: ACETAMINOPHEN 325 MG TABLET (FP) PO PRN (13:56)
[2018-06-23] MEDS ORDERED: MAG HYDROX/AL HYDROX/SIMETH 30 ML UNIT-DOSE CUP PO PRN (13:56)
[2018-06-23] MEDS ORDERED: IBUPROFEN 400 MG TABLET (FP) PO PRN (13:56)
[2018-06-23] MEDS ORDERED: P-EPHED 60MG/TRIPROLIDI 2.5MG TABLET PO PRN (13:56)
[2018-06-23] MEDS ORDERED: MAGNESIUM HYDROX 2400MG/30ML ORAL SUSPENSION 30 ML CUP PO PRN (13:56)
[2018-06-23] MEDS ORDERED: diazePAM 5 MG TABLET PO ONE (15:25)
--- NOTE | 2018-06-23 15:40 | PN ---
[facility] Progress Note Note: ekg poor tracing,will repeat in am
[2018-06-23] MEDS ORDERED: MELATONIN 5 MG TABLETS PO PRN (22:00)
[2018-06-23] MEDS: diazePAM 5 MG TABLET PO SCH (22:25)
[2018-06-23 22:26] LABS: URINE APPEARANCE TURBID; URINE BILIRUBIN NEGATIVE (<2.0 mg/dL); URINE COLOR AMBER; URINE GLUCOSE (UA) NEGATIVE (NEGATIVE); URINE KETONE NEGATIVE (NEGATIVE); URINE LEUK ESTERASE NEGATIVE (NEGATIVE); URINE NITRITE NEGATIVE (NEGATIVE); URINE PROTEIN NEGATIVE (NEGATIVE)
[2018-06-23] MEDS: THIAMINE HCL 100 MG TABLET (FP) PO SCH (22:27)
[2018-06-24] MEDS: diazePAM 5 MG TABLET PO SCH ×3 (05:32→23:21)
[2018-06-24] MEDS: PRENATAL VITAMINS W/ FOLIC ACID TABLET (FP) PO SCH (09:34)
[2018-06-24] MEDS: diazePAM 5 MG TABLET PO PRN ×2 (09:34→17:40)
[2018-06-24] MEDS: NICOTINE 14 MG/24 HOURS TOPICAL PATCH TD SCH (09:34)
--- NOTE | 2018-06-24 10:07 | EKG ---
Test Reason : Blood Pressure : / mmHG Vent. Rate : 082 BPM Atrial Rate : 082 BPM P-R Int : 138 ms QRS Dur : 082 ms QT Int : 358 ms P-R-T Axes : 076 048 -29 degrees QTc Int : 418 ms NORMAL SINUS RHYTHM T WAVE ABNORMALITY, CONSIDER LATERAL ISCHEMIA ABNORMAL ECG WHEN COMPARED WITH ECG OF 13-MAY-2018 20:58, PREMATURE VENTRICULAR COMPLEXES ARE NO LONGER PRESENT Confirmed by NIKOLAS VILLAFANA, CHERELLE ([id number]) on 06/24/2018 10:06:56 AM Referred By: Confirmed By:CHERELLE CONNOR MD
[2018-06-24 10:48] LABS: HEMATOCRIT 40.8 % (35.4-49); HEMOGLOBIN 12.8 GM/dL (11.7-16.9); MCH 25.9 pg (25.7-33.7); MCHC 31.5 g/dl (32.0-35.9); MEAN CELL VOLUME 82.4 fl (80-96); MEAN PLT VOLUME 9.4 fl (7.5-11.1); PLATELET COUNT 244 K/MM3 (134-434); RBC 4.95 M/mm3 (4.00-5.60); RDW 17.6 % (11.9-15.9); WHITE BLOOD COUNT 4.8 K/mm3 (4.0-10.0)
[2018-06-24 11:52] LABS: ALBUMIN 4.1 g/dl (3.4-5.0); ALK PHOS 143 U/L (45-117); ANION GAP 11 MMOL/L (8-16); BILIRUBIN,TOTAL 0.2 mg/dL (0.2-1); BLOOD UREA NITROGEN 27 mg/dL (7-18); CALCIUM 9.1 mg/dL (8.5-10.1); CHLORIDE 106 mmol/L (98-107); CO2 24 mmol/L (21-32); CREATININE 1.3 mg/dL (0.55-1.3); GLUCOSE,RANDOM 105 mg/dL (74-106); POTASSIUM 4.1 mmol/L (3.5-5.1); SGOT/AST 49 U/L (15-37); SGPT/ALT 77 U/L (13-61); SODIUM 141 mmol/L (136-145)
--- NOTE | 2018-06-24 13:52 | PN ---
[facility] CIWA - CIWA Score Nausea/Vomitin Muscle Tremors: 4-Moderate,w/Arms Extend Anxiety: 4-Mod. Anxious/Guarded Agitation: 3 Paroxysmal Sweats: 3 Orientation: 0-Oriented Tacttile Disturbances: 1-Very Mild Itch/Numbness Auditory Disturbances: 0-None Visual Disturbances: 0-None Headache: 0-None Present CIWA-Ar Total Score: 17 [facility] Progress Note (SOAP) Subjective: Tremor, nausea, interrupted sleep Objective: 06/24/18 13:50 Last Vital Signs Temp Pulse Resp BP Pulse Ox 97.8 F 75 18 96/55 L 06/24/18 09:37 06/24/18 11:00 06/24/18 11:00 06/24/18 09:37 Hypotension noted Laboratory Tests 06/23/18 06/24/18 06/24/18 22:00 06:00 06:00 WBC 4.8 RBC 4.95 Hgb 12.8 Hct 40.8 MCV 82.4 MCH 25.9 MCHC 31.5 L RDW 17.6 H Plt Count 244 MPV 9.4 Sodium 141 Potassium 4.1 Chloride 106 Carbon Dioxide 24 Anion Gap 11 BUN 27 H Creatinine 1.3 Creat Clearance w eGFR 55.94 Random Glucose 105 Calcium 9.1 Total Bilirubin 0.2 AST 49 H ALT 77 H Alkaline Phosphatase 143 H Total Protein 8.0 Albumin 4.1 Urine Color Cris Urine Appearance Turbid Urine pH 5.0 Ur Specific [place] 1.021 Urine Protein Negative Urine Glucose (UA) Negative Urine Ketones Negative Urine Blood Negative Urine Nitrite Negative Urine Bilirubin Negative Urine Urobilinogen 2.0 Ur Leukocyte Esterase Negative Labs reviewed: prerenal azotemia noted Assessment: 06/24/18 13:51 Withdrawal symptoms Prerenal azotemia and hypotension noted Plan: Continue detox Prerenal azotemia: encouraged PO water intake, repeat BMP on Friday Hypotension: asymptomatic, encouraged to drink more water for hydration
--- NOTE | 2018-06-24 15:44 | EKG ---
Test Reason : Blood Pressure : / mmHG Vent. Rate : 061 BPM Atrial Rate : 061 BPM P-R Int : 142 ms QRS Dur : 082 ms QT Int : 400 ms P-R-T Axes : 043 025 -58 degrees QTc Int : 402 ms NORMAL SINUS RHYTHM T WAVE ABNORMALITY, CONSIDER LATERAL ISCHEMIA ABNORMAL ECG WHEN COMPARED WITH ECG OF 23-JUN-2018 16:25, NO SIGNIFICANT CHANGE WAS FOUND Confirmed by NIKOLAS VILLAFANA, CHERELLE ([id number]) on 06/24/2018 3:43:46 PM Referred By: Confirmed By:CHERELLE CONNOR MD
[2018-06-24] MEDS: THIAMINE HCL 100 MG TABLET (FP) PO SCH (23:22)
[2018-06-25] MEDS: PRENATAL VITAMINS W/ FOLIC ACID TABLET (FP) PO SCH (09:57)
[2018-06-25] MEDS: diazePAM 5 MG TABLET PO SCH ×2 (09:58→22:34)
[2018-06-25] MEDS: NICOTINE 14 MG/24 HOURS TOPICAL PATCH TD SCH (09:58)
--- NOTE | 2018-06-25 10:58 | PN ---
[facility] CIWA - CIWA Score Nausea/Vomitin-Mild Nausea/No Vomiting Muscle Tremors: 3 Anxiety: 3 Agitation: 3 Paroxysmal Sweats: 3 Orientation: 0-Oriented Tacttile Disturbances: 0-None Auditory Disturbances: 0-None Visual Disturbances: 0-None Headache: 1-Very Mild CIWA-Ar Total Score: 14 [facility] Progress Note (SOAP) Subjective: Anxious, restless, tremor Objective: 06/25/18 10:55 Last Vital Signs Temp Pulse Resp BP Pulse Ox 96.6 F L 70 18 140/70 06/25/18 09:49 06/25/18 09:49 06/25/18 09:49 06/25/18 09:49 Laboratory Tests 06/23/18 06/24/18 06/24/18 22:00 06:00 06:00 WBC 4.8 RBC 4.95 Hgb 12.8 Hct 40.8 MCV 82.4 MCH 25.9 MCHC 31.5 L RDW 17.6 H Plt Count 244 MPV 9.4 Sodium 141 Potassium 4.1 Chloride 106 Carbon Dioxide 24 Anion Gap 11 BUN 27 H Creatinine 1.3 Creat Clearance w eGFR 55.94 Random Glucose 105 Calcium 9.1 Total Bilirubin 0.2 AST 49 H ALT 77 H Alkaline Phosphatase 143 H Total Protein 8.0 Albumin 4.1 Urine Color Cris Urine Appearance Turbid Urine pH 5.0 Ur Specific [place] 1.021 Urine Protein Negative Urine Glucose (UA) Negative Urine Ketones Negative Urine Blood Negative Urine Nitrite Negative Urine Bilirubin Negative Urine Urobilinogen 2.0 Ur Leukocyte Esterase Negative Labs reviewed: serum creatinine 1.3, GFR 55.94 Assessment: 06/25/18 10:56 Withdrawal symptoms Prerenal azotemia noted Plan: Continue detox Prerenal azotemia: encouraged PO water intake for hydration, follow up on BMP result (ordered for tomorrow)
[2018-06-25] MEDS: THIAMINE HCL 100 MG TABLET (FP) PO SCH (22:34)
[2018-06-26] MEDS: diazePAM 5 MG TABLET PO SCH (10:15)
[2018-06-26] MEDS: NICOTINE 14 MG/24 HOURS TOPICAL PATCH TD SCH (10:15)
[2018-06-26] MEDS: PRENATAL VITAMINS W/ FOLIC ACID TABLET (FP) PO SCH (10:15)
--- NOTE | 2018-06-26 12:03 | PN ---
[facility] Progress Note Note: PATIENT CONTINUES WITH DETOX REGIMEN. STATES HE IS FEELING BETTER. FOR D/C IN AM Vital Signs Temperature 97.0 F L 06/26/18 10:03 Pulse Rate 97 H 06/26/18 10:03 Respiratory Rate 18 06/26/18 10:03 Blood Pressure 119/80 06/26/18 10:03 O2 Sat by Pulse Oximetry (%) Laboratory Tests 06/23/18 06/24/18 06/24/18 22:00 06:00 06:00 WBC 4.8 RBC 4.95 Hgb 12.8 Hct 40.8 MCV 82.4 MCH 25.9 MCHC 31.5 L RDW 17.6 H Plt Count 244 MPV 9.4 Sodium 141 Potassium 4.1 Chloride 106 Carbon Dioxide 24 Anion Gap 11 BUN 27 H Creatinine 1.3 Creat Clearance w eGFR 55.94 Random Glucose 105 Calcium 9.1 Total Bilirubin 0.2 AST 49 H ALT 77 H Alkaline Phosphatase 143 H Total Protein 8.0 Albumin 4.1 Urine Color Cris Urine Appearance Turbid Urine pH 5.0 Ur Specific [place] 1.021 Urine Protein Negative Urine Glucose (UA) Negative Urine Ketones Negative Urine Blood Negative Urine Nitrite Negative Urine Bilirubin Negative Urine Urobilinogen 2.0 Ur Leukocyte Esterase Negative RPR Titer 06/24/18 06:00 WBC RBC Hgb Hct MCV MCH MCHC RDW Plt Count MPV Sodium Potassium Chloride Carbon Dioxide Anion Gap BUN Creatinine Creat Clearance w eGFR Random Glucose Calcium Total Bilirubin AST ALT Alkaline Phosphatase Total Protein Albumin Urine Color Urine Appearance Urine pH Ur Specific [place] Urine Protein Urine Glucose (UA) Urine Ketones Urine Blood Urine Nitrite Urine Bilirubin Urine Urobilinogen Ur Leukocyte Esterase RPR Titer Nonreactive PE: ALERT AND ORIENTED X 3 SKIN WARM AND DRY EXT FULL ROM AMB AD ANGE WITHDRAWAL SX CONTINUE DETOX D/C IN AM
[2018-06-26 14:18] VITALS: BP 138/87; PULSE 91; TEMP 97.5
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
[2018-06-27] MEDS ORDERED: diazePAM 5 MG TABLET PO SCH (10:00)
== END 2018-06-26 14:50 | disposition home or self-care (01) | DRG 775 ==
LOC: YASAS 12:12 → Y3N 15:07
PROVIDERS: ADMIT Neuromusculoskeletal Medicine & OMM; ATTEND Neuromusculoskeletal Medicine & OMM
PROC: HZ2ZZZZ Detoxification Services for Substance Abuse Treatment (ICD-10-PCS; principal; 2018-06-23)
DX: F10.230 Alcohol dependence with withdrawal, uncomplicated (principal); F13.230 Sedative, hypnotic or anxiolytic dependence with withdrawal, uncomplicated; F12.20 Cannabis dependence, uncomplicated; F17.210 Nicotine dependence, cigarettes, uncomplicated; F34.1 Dysthymic disorder; I95.9 Hypotension, unspecified; R79.89 Other specified abnormal findings of blood chemistry
CPT/HCPCS: 36415; 80053; 81003; 85027; 86593; 93005; 93010

== ENCOUNTER 2018-07-29 08:22 | Inpatient (IN) | payer OTHER ==
[2018-07-29 09:48] VITALS: BMI 24.7
--- NOTE | 2018-07-29 10:40 | HP ---
CIWA Score Nausea/Vomitin Muscle Tremors: 2 Anxiety: 2 Agitation: 2 Paroxysmal Sweats: 1-Minimal Palms Moist Orientation: 0-Oriented Tacttile Disturbances: 1-Very Mild Itch/Numbness Auditory Disturbances: 1-Very Mild Visual Disturbances: 0-None Headache: 2-Mild CIWA-Ar Total Score: 13 - Admission Criteria OASAS Guidelines: Admission for Medically Managed Detox: Requires at least one of the followin. CIWA greater than 12 2. Seizures within the past 24 hours 3. Delirium tremens within the past 24 hours 4. Hallucinations within the past 24 hours 5. Acute intervention needed for co occurring medical disorder 6. Acute intervention needed for co occurring psychiatric disorder 7. Severe withdrawal that cannot be handled at a lower level of care (continued vomiting, continued diarrhea, abnormal vital signs) requiring intravenous medication and/or fluids 8. Patient presents the following: CIWA greater than 12 Admission Criteria Met: Admission criteria met Admission ROS BHS - HPI Chief Complaint: i need help to come in for detox from alcohol and marijuan Allergies/Adverse Reactions: Allergies Allergy/AdvReac Type Severity Reaction Status Date / Time No Known Allergies Allergy Verified 07/29/18 10:01 History of Present Illness: this 62 years old male with alcohol and marijuana dependence,seeking detox, withdrawal symptom,last detox 05/13/18 o 05/17/18 nicotine dependence multiple admissions but keep relapsing longest period of sobriety 8 years plan for rehab after detox - Ebola screening Have you traveled outside of the country in the last 21 days: No (N) Have you had contact with anyone from an Ebola affected area: No Have you been sick,other than usual withdrawal symptoms: No Do you have a fever: No - Review of Systems Constitutional: Loss of Appetite, Malaise, Night Sweats, Changes in sleep, Weakness EENT: reports: Nose Congestion Respiratory: reports: No Symptoms reported Cardiac: reports: No Symptoms Reported : reports: No Symptoms Reported Integumentary: reports: Dryness Neuro: reports: Headache, Tremors Endocrine: reports: No Symptoms Reported Hematology: reports: No Symptoms Reported Psychiatric: reports: No Sypmtoms Reported, Judgement Intact, Mood/Affect Appropiate, Orientated x3 Other Systems: Reviewed and Negative Patient History - Patient Medical History Hx Anemia: No Hx Asthma: No Hx Chronic Obstructive Pulmonary Disease (COPD): No Hx Cancer: No Hx Cardiac Disorders: No Hx Congestive Heart Failure: No Hx Hypertension: No Hx Hypercholesterolemia: No Hx Pacemaker: No HX Cerebrovascular Accident: No Hx Seizures: No Hx Dementia: No Hx Diabetes: No Hx Gastrointestinal Disorders: No Hx Liver Disease: No Hx Genitourinary Disorders: No Hx Sexually Transmitted Disorders: No Hx Renal Disease (ESRD): No Hx Thyroid Disease: No Hx Human Immunodeficiency Virus (HIV): No (LAST TESTED FOUR MONTHS AGO NEGATIVE) Hx Hepatitis C: No Hx Depression: No Hx Suicide Attempt: No Hx Bipolar Disorder: No Hx Schizophrenia: No Other Medical History: n o suicidal,no homicidal - Patient Surgical History Past Surgical History: Yes Hx Neurologic Surgery: No Hx Cataract Extraction: No Hx Cardiac Surgery: No Hx Lung Surgery: No Hx Breast Surgery: No Hx Breast Biopsy: No Hx Abdominal Surgery: No Hx Appendectomy: No Hx Cholecystectomy: No Hx Genitourinary Surgery: No Hx Section: No Hx Orthopedic Surgery: No Other Surgical History: bilateral inguinal hernia repair in 2004 Anesthesia Reaction: No - PPD History Previous Implant?: Yes Documented Results: Negative w/proof Implanted On Prior [facility] Admission?: Yes Date: 03/28/18 Results: 0 mm PPD to be Administered?: No - Smoking Cessation Smoking history: Current some day smoker Have you smoked in the past 12 months: Yes Aproximately how many cigarettes per day: 5 Cigars Per Day: 0 Hx Chewing Tobacco Use: No Initiated information on smoking cessation: Yes 'Breaking Loose' booklet given: 07/29/18 - Substance & Tx. History Hx Alcohol Use: Yes Hx Substance Use: Yes Substance Use Type: Alcohol, Marijuana Hx Substance Use Treatment: Yes ([facility] 05/13/18 to 05/17/18) - Substances Abused Alcohol Route: Oral Frequency: Daily Amount used: 1 pint of vodka, and 8-9 24oz cans of beer Age of first use: 21 Date of Last Use: 07/29/18 Marijuana/Hashish Route: Smoking Frequency: Daily Amount used: 1-2 blunts Age of first use: 17 Date of Last Use: 07/27/18 Family Disease History - Family Disease History Family Disease History: Other: Father (), Mother () Admission Physical Exam BHS - Vital Signs Vital Signs: Vital Signs - 24 hr 07/29/18 09:44 Temperature 97.7 F Pulse Rate 73 Respiratory 20 Rate Blood Pressure 138/100 - Physical General Appearance: Yes: Moderate Distress, Tremorous, Irritable, Sweating, Anxious HEENTM: Yes: Normal ENT Inspection, Pharynx Normal Respiratory: Yes: Within Normal Limits, Lungs Clear, Normal Breath Sounds Neck: Yes: Within Normal Limits, Supple, Trachea in good position Breast: Yes: Within Normal Limits Cardiology: Yes: Within Normal Limits, Regular Rhythm, Regular Rate, S1, S2 Abdominal: Yes: Within Normal Limits, Normal Bowel Sounds, Non Tender, Flat, Soft Genitourinary: Yes: Within Normal Limits Back: Yes: Muscle Spasm Musculoskeletal: Yes: Back pain, Muscle Pain Extremities: Yes: Tremors, Other (injury to left knee in07/21 seen at [facility]) 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: Yes: Within Normal Limits, 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 intact, Fully Oriented, Alert Integumentary: Yes: Dry Lymphatic: Yes: Within Normal Limits - Diagnostic (1) Alcohol dependence with uncomplicated withdrawal Current Visit: No Status: Resolved (2) Cannabis dependence, uncomplicated Current Visit: No Status: Chronic (3) Nicotine dependence Current Visit: No Status: Resolved Qualifiers: Nicotine product type: cigarettes Substance use status: in withdrawal Qualified Code(s): F17.213 - Nicotine dependence, cigarettes, with withdrawal (4) Left knee injury Current Visit: Yes Status: Acute Cleared for Admission [facility] - Detox or Rehab [facility] Level of Care: Medically Managed Detox Regimen/Protocol: Librium [facility] Breath Alcohol Content Breath Alcohol Content: 0.037 Urine Drug Screen - Results Drug Screen Negative: No Urine Drug Screen Results: THC-Marijuana, BZO-Benzodiazepines
[2018-07-29] MEDS ORDERED: LOPERAMIDE HCL 2 MG CAPSULE PO PRN (10:49)
[2018-07-29] MEDS ORDERED: MAGNESIUM HYDROX 2400MG/30ML ORAL SUSPENSION 30 ML CUP PO PRN (10:49)
[2018-07-29] MEDS ORDERED: MAGNESIUM CITRATE 300 ML BOTTLE PO PRN (10:49)
[2018-07-29] MEDS ORDERED: MAG HYDROX/AL HYDROX/SIMETH 30 ML UNIT-DOSE CUP PO PRN (10:49)
[2018-07-29] MEDS ORDERED: ACETAMINOPHEN 325 MG TABLET (FP) PO PRN (10:49)
[2018-07-29] MEDS ORDERED: guaiFENesin/D-METHORPHAN HB 10 ML UNIT-DOSE CUPS PO PRN (10:49)
[2018-07-29] MEDS ORDERED: chlordiazePOXIDE HCL 25 MG CAPSULE PO PRN (10:49)
[2018-07-29] MEDS ORDERED: MENTHOL/PHENOL 1 EACH UD MM PRN (10:49)
[2018-07-29] MEDS ORDERED: IBUPROFEN 400 MG TABLET (FP) PO PRN (10:49)
[2018-07-29] MEDS ORDERED: P-EPHED 60MG/TRIPROLIDI 2.5MG TABLET PO PRN (10:49)
[2018-07-29] MEDS: chlordiazePOXIDE HCL 25 MG CAPSULE PO SCH ×2 (17:16→22:38)
[2018-07-29] MEDS ORDERED: MELATONIN 5 MG TABLETS PO PRN (22:00)
[2018-07-29] MEDS: THIAMINE HCL 100 MG TABLET (FP) PO SCH (22:38)
[2018-07-30] MEDS: chlordiazePOXIDE HCL 25 MG CAPSULE PO SCH ×4 (05:20→22:34)
[2018-07-30] MEDS: PRENATAL VITAMINS W/ FOLIC ACID TABLET (FP) PO SCH (10:31)
[2018-07-30 11:00] LABS: HEMATOCRIT 39.8 % (35.4-49); HEMOGLOBIN 12.5 GM/dL (11.7-16.9); MCH 25.9 pg (25.7-33.7); MCHC 31.4 g/dl (32.0-35.9); MEAN CELL VOLUME 82.7 fl (80-96); MEAN PLT VOLUME 9.6 fl (7.5-11.1); PLATELET COUNT 219 K/MM3 (134-434); RBC 4.82 M/mm3 (4.00-5.60); RDW 18.3 % (11.9-15.9); WHITE BLOOD COUNT 6.7 K/mm3 (4.0-10.0)
[2018-07-30 11:34] LABS: ALBUMIN 3.8 g/dl (3.4-5.0); ALK PHOS 100 U/L (45-117); ANION GAP 8 MMOL/L (8-16); BLOOD UREA NITROGEN 10 mg/dL (7-18); CALCIUM 8.6 mg/dL (8.5-10.1); CHLORIDE 104 mmol/L (98-107); CO2 27 mmol/L (21-32); CREATININE 0.8 mg/dL (0.55-1.3); GLUCOSE,RANDOM 102 mg/dL (74-106); POTASSIUM 3.8 mmol/L (3.5-5.1); SGOT/AST 43 U/L (15-37); SGPT/ALT 39 U/L (13-61); SODIUM 138 mmol/L (136-145); TOT PROT 7.6 g/dl (6.4-8.2)
--- NOTE | 2018-07-30 12:55 | PN ---
S CIWA - CIWA Score Nausea/Vomitin-No Nausea/No Vomiting Muscle Tremors: 4-Moderate,w/Arms Extend Anxiety: 3 Agitation: 3 Paroxysmal Sweats: 3 Orientation: 0-Oriented Tacttile Disturbances: 0-None Auditory Disturbances: 0-None Visual Disturbances: 0-None Headache: 0-None Present CIWA-Ar Total Score: 13 S Progress Note (SOAP) Subjective: irritable agitation sweats Objective: 07/30/18 12:56 Vital Signs Temperature 98.2 F 07/30/18 09:54 Pulse Rate 86 07/30/18 09:54 Respiratory Rate 18 07/30/18 09:54 Blood Pressure 138/93 07/30/18 09:54 O2 Sat by Pulse Oximetry (%) Laboratory Tests 07/30/18 07/30/18 07/30/18 05:45 05:45 05:45 WBC 6.7 RBC 4.82 Hgb 12.5 Hct 39.8 MCV 82.7 MCH 25.9 MCHC 31.4 L RDW 18.3 H Plt Count 219 MPV 9.6 Sodium 138 Potassium 3.8 Chloride 104 Carbon Dioxide 27 Anion Gap 8 BUN 10 Creatinine 0.8 Creat Clearance w eGFR > 60 Random Glucose 102 Calcium 8.6 Total Bilirubin 1.0 AST 43 H ALT 39 Alkaline Phosphatase 100 Total Protein 7.6 Albumin 3.8 RPR Titer Nonreactive aaox3 ambulating no acute distress Assessment: 07/30/18 12:57 withdrawal sx Plan: continue detox increase fluids
--- NOTE | 2018-07-30 13:10 | PN ---
S Progress Note Note: earlier this morning, pt confrontational, insulting and threatening to board writer. pt was contracted about his behaviour. pt has continued to threaten and making unnecessary comments. nursing, counselor, field crop farming supervisor and medical staff agreed to have pt transferred to another unit so pt can continue his treatment.
[2018-07-30] MEDS: THIAMINE HCL 100 MG TABLET (FP) PO SCH (22:34)
--- NOTE | 2018-07-30 22:44 | PN ---
BHS Progress Note Note: Patient's blood pressure is B/P 158/95. Patient is asymptomatic Vital Signs Temperature 97.7 F 07/30/18 22:37 Pulse Rate 88 07/30/18 22:37 Respiratory Rate 18 07/30/18 22:37 Blood Pressure 158/95 07/30/18 22:37 O2 Sat by Pulse Oximetry (%) Action: Clonidine 0.1mg tablet oral ordered
[2018-07-30] MEDS ORDERED: cloNIDine HCL 0.1 MG TABLET PO ONE (22:45)
[2018-07-31] MEDS: chlordiazePOXIDE HCL 25 MG CAPSULE PO SCH ×2 (05:59→10:10)
[2018-07-31] MEDS: PRENATAL VITAMINS W/ FOLIC ACID TABLET (FP) PO SCH (10:10)
--- NOTE | 2018-07-31 13:08 | PN ---
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 Objective: 07/31/18 13:06 Vital Signs Temperature 97.0 F L 07/31/18 09:18 Pulse Rate 90 07/31/18 09:18 Respiratory Rate 20 07/31/18 09:18 Blood Pressure 159/100 07/31/18 09:18 O2 Sat by Pulse Oximetry (%) Laboratory Tests 07/30/18 07/30/18 07/30/18 05:45 05:45 05:45 WBC 6.7 RBC 4.82 Hgb 12.5 Hct 39.8 MCV 82.7 MCH 25.9 MCHC 31.4 L RDW 18.3 H Plt Count 219 MPV 9.6 Sodium 138 Potassium 3.8 Chloride 104 Carbon Dioxide 27 Anion Gap 8 BUN 10 Creatinine 0.8 Creat Clearance w eGFR > 60 Random Glucose 102 Calcium 8.6 Total Bilirubin 1.0 AST 43 H ALT 39 Alkaline Phosphatase 100 Total Protein 7.6 Albumin 3.8 RPR Titer Nonreactive PE: EXAM LIMITED DUE TO IRRITABILITY PATIENT AMB AD ANGE PACING ON UNIT, MUMBLING TO SELF Assessment: 07/31/18 13:07 WITHDRAWAL SX Plan: CONTINUE DETOX PATIENT CURRENTLY ON CONTRACT CONTINUE TO MONITOR
[2018-07-31] MEDS: chlordiazePOXIDE 5 MG CAPSULE PO SCH ×2 (17:14→22:35)
[2018-07-31] MEDS: THIAMINE HCL 100 MG TABLET (FP) PO SCH (22:36)
[2018-08-01] MEDS: chlordiazePOXIDE 5 MG CAPSULE PO SCH ×2 (05:48→10:57)
[2018-08-01] MEDS: PRENATAL VITAMINS W/ FOLIC ACID TABLET (FP) PO SCH (10:57)
--- NOTE | 2018-08-01 12:10 | CONSULT ---
[facility] Psychiatric Consult - Data Date of interview: 08/01/18 Admission source: [facility] Identifying data: Patient is a transfer from [address] [place] [address]. Mr Arroyo is approached for psychiatric evaluation. He refuses to talk to this scientific technical writer. " I have asked to see a doctor, not a psychiatrist. I have nothing to discuss with you ". Walked away. Nursing staff is made aware.
--- NOTE | 2018-08-01 17:09 | PN ---
BHS Progress Note (SOAP) Subjective: Patient denies any current withdrawal symptoms. Objective: PATIENT A & O X 3, OBSERVED AMBULATING ON UNIT. IN NO ACUTE DISTRESS. 08/01/18 17:07 Vital Signs Temperature 97.3 F L 08/01/18 15:03 Pulse Rate 90 08/01/18 15:03 Respiratory Rate 18 08/01/18 15:03 Blood Pressure 120/79 08/01/18 15:03 O2 Sat by Pulse Oximetry (%) Laboratory Tests 07/30/18 07/30/18 07/30/18 05:45 05:45 05:45 WBC 6.7 RBC 4.82 Hgb 12.5 Hct 39.8 MCV 82.7 MCH 25.9 MCHC 31.4 L RDW 18.3 H Plt Count 219 MPV 9.6 Sodium 138 Potassium 3.8 Chloride 104 Carbon Dioxide 27 Anion Gap 8 BUN 10 Creatinine 0.8 Creat Clearance w eGFR > 60 Random Glucose 102 Calcium 8.6 Total Bilirubin 1.0 AST 43 H ALT 39 Alkaline Phosphatase 100 Total Protein 7.6 Albumin 3.8 RPR Titer Nonreactive LABS NOTED. Assessment: 08/01/18 17:08 WITHDRAWAL SYMPTOMS. Plan: CONTINUE DETOX. PATIENT SCHEDULED FOR D/C TOMORROW.
[2018-08-01] MEDS: chlordiazePOXIDE HCL 10 MG CAPSULE PO SCH ×2 (17:43→22:40)
[2018-08-01 21:42] VITALS: BP 119/78
[2018-08-01] MEDS: THIAMINE HCL 100 MG TABLET (FP) PO SCH (22:40)
[2018-08-02] MEDS: chlordiazePOXIDE HCL 10 MG CAPSULE PO SCH (06:00)
[2018-08-02 06:40] VITALS: PULSE 87; TEMP 96.8
--- NOTE | 2018-08-02 17:53 | DS ---
[facility] Detox Discharge Summary Admission Date: 07/29/18 Discharge Date: 08/02/18 - History Present History: Alcohol Dependence, Cannabis Dependence Additional Comments: Patient completed detox successfully. Patient is A, A, Ox3, in nad, ambulatory. Instructed to see his PCP within 1-2 weeks. Pertinent Past History: Alcohol dependence Cannabis dependence Nicotine dependence - Physical Exam Results Vital Signs: Vital Signs Temperature 96.8 F L 08/02/18 06:38 Pulse Rate 87 08/02/18 06:38 Respiratory Rate 18 08/02/18 06:38 Blood Pressure 119/78 08/02/18 06:38 O2 Sat by Pulse Oximetry (%) Pertinent Admission Physical Exam Findings: Withdrawal symptoms Laboratory Tests 07/30/18 07/30/18 07/30/18 05:45 05:45 05:45 WBC 6.7 RBC 4.82 Hgb 12.5 Hct 39.8 MCV 82.7 MCH 25.9 MCHC 31.4 L RDW 18.3 H Plt Count 219 MPV 9.6 Sodium 138 Potassium 3.8 Chloride 104 Carbon Dioxide 27 Anion Gap 8 BUN 10 Creatinine 0.8 Creat Clearance w eGFR > 60 Random Glucose 102 Calcium 8.6 Total Bilirubin 1.0 AST 43 H ALT 39 Alkaline Phosphatase 100 Total Protein 7.6 Albumin 3.8 RPR Titer Nonreactive Labs reviewed - Treatment Hospital Course: Detox Protocol Followed, Detoxed Safely, Responded well, Discharged Condition Good - Medication Discharge Medications: Ambulatory Orders NK [No Known Home Medication] 01/28/15 - Diagnosis (1) Alcohol dependence with uncomplicated withdrawal Status: Acute (2) Cannabis dependence, uncomplicated Status: Chronic (3) Nicotine dependence Status: Chronic Qualifiers: Nicotine product type: cigarettes Substance use status: in withdrawal Qualified Code(s): F17.213 - Nicotine dependence, cigarettes, with withdrawal - AMA Did Patient Leave Against Medical Advice: No (F/U with PCP within 1-2 weeks)
== END 2018-08-02 09:53 | disposition home or self-care (01) | DRG 775 ==
LOC: YASAS 08:22 → Y6N 10:47 → Y3N 07-30 13:41
PROC: HZ2ZZZZ Detoxification Services for Substance Abuse Treatment (ICD-10-PCS; principal; 2018-07-29)
DX: F10.230 Alcohol dependence with withdrawal, uncomplicated (principal); F12.20 Cannabis dependence, uncomplicated; F17.213 Nicotine dependence, cigarettes, with withdrawal; I10 Essential (primary) hypertension; S89.82XD Other specified injuries of left lower leg, subsequent encounter; X58.XXXD Exposure to other specified factors, subsequent encounter
CPT/HCPCS: 36415; 80053; 85027; 86593

== ENCOUNTER 2018-09-02 08:08 | Inpatient (IN) | payer OTHER ==
[2018-09-02 08:31] VITALS: BMI 24.3
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
[2018-09-02] MEDS ORDERED: IBUPROFEN 400 MG TABLET (FP) PO PRN (09:24)
[2018-09-02] MEDS ORDERED: MAG HYDROX/AL HYDROX/SIMETH 30 ML UNIT-DOSE CUP PO PRN (09:24)
[2018-09-02] MEDS ORDERED: guaiFENesin/D-METHORPHAN HB 10 ML UNIT-DOSE CUPS PO PRN (09:24)
[2018-09-02] MEDS ORDERED: ACETAMINOPHEN 325 MG TABLET (FP) PO PRN (09:24)
[2018-09-02] MEDS ORDERED: hydrOXYzine PAMOATE 50 MG CAPSULE (FP) PO PRN (09:24)
[2018-09-02] MEDS ORDERED: MENTHOL/PHENOL 1 EACH UD MM PRN (09:24)
[2018-09-02] MEDS ORDERED: LOPERAMIDE HCL 2 MG CAPSULE PO PRN (09:24)
[2018-09-02] MEDS ORDERED: MAGNESIUM CITRATE 300 ML BOTTLE PO PRN (09:24)
[2018-09-02] MEDS ORDERED: P-EPHED 60MG/TRIPROLIDI 2.5MG TABLET PO PRN (09:24)
[2018-09-02] MEDS ORDERED: MAGNESIUM HYDROX 2400MG/30ML ORAL SUSPENSION 30 ML CUP PO PRN (09:24)
[2018-09-02] MEDS: PRENATAL VITAMINS W/ FOLIC ACID TABLET (FP) PO SCH (10:00)
[2018-09-02 12:13] LABS: HEMATOCRIT 40.6 % (35.4-49); HEMOGLOBIN 13.5 GM/dL (11.7-16.9); MCH 27.3 pg (25.7-33.7); MCHC 33.3 g/dl (32.0-35.9); MEAN CELL VOLUME 82.2 fl (80-96); MEAN PLT VOLUME 8.3 fl (7.5-11.1); PLATELET COUNT 267 K/MM3 (134-434); RBC 4.94 M/mm3 (4.00-5.60); RDW 18.5 % (11.9-15.9); WHITE BLOOD COUNT 3.6 K/mm3 (4.0-10.0)
[2018-09-02 12:31] LABS: ALBUMIN 4.1 g/dl (3.4-5.0); ALK PHOS 98 U/L (45-117); ANION GAP 4 MMOL/L (8-16); BILIRUBIN,TOTAL 0.3 mg/dL (0.2-1); BLOOD UREA NITROGEN 14 mg/dL (7-18); CALCIUM 8.9 mg/dL (8.5-10.1); CHLORIDE 101 mmol/L (98-107); CO2 31 mmol/L (21-32); CREATININE 0.8 mg/dL (0.55-1.3); GLUCOSE,RANDOM 96 mg/dL (74-106); POTASSIUM 4.4 mmol/L (3.5-5.1); SGOT/AST 34 U/L (15-37); SGPT/ALT 32 U/L (13-61); SODIUM 136 mmol/L (136-145); TOT PROT 8.3 g/dl (6.4-8.2)
[2018-09-02] MEDS: THIAMINE HCL 100 MG TABLET (FP) PO SCH (21:48)
[2018-09-02] MEDS ORDERED: MELATONIN 5 MG TABLETS PO PRN (22:00)
[2018-09-03 04:40] LABS: URINE APPEARANCE CLEAR; URINE BILIRUBIN NEGATIVE (<2.0 mg/dL); URINE COLOR STRAW; URINE GLUCOSE (UA) NEGATIVE (NEGATIVE); URINE KETONE NEGATIVE (NEGATIVE); URINE LEUK ESTERASE NEGATIVE (NEGATIVE); URINE NITRITE NEGATIVE (NEGATIVE); URINE PROTEIN NEGATIVE (NEGATIVE); URINE UROBILINOGEN NEGATIVE mg/dL (0.2-1.0)
[2018-09-03] MEDS: PRENATAL VITAMINS W/ FOLIC ACID TABLET (FP) PO SCH (10:24)
[2018-09-03] MEDS: THIAMINE HCL 100 MG TABLET (FP) PO SCH (22:12)
[2018-09-04 06:44] VITALS: PULSE 61
[2018-09-04] MEDS: PRENATAL VITAMINS W/ FOLIC ACID TABLET (FP) PO SCH (10:27)
[2018-09-04] MEDS: THIAMINE HCL 100 MG TABLET (FP) PO SCH (22:09)
[2018-09-05] MEDS: PRENATAL VITAMINS W/ FOLIC ACID TABLET (FP) PO SCH (10:12)
[2018-09-05] MEDS: THIAMINE HCL 100 MG TABLET (FP) PO SCH (21:49)
[2018-09-06 06:35] VITALS: BP 130/76; TEMP 98.1
[2018-09-06] MEDS: PRENATAL VITAMINS W/ FOLIC ACID TABLET (FP) PO SCH (10:21)
--- NOTE | 2018-09-06 10:52 | PN ---
[facility] Progress Note Note: informed by nurse that patient does not want to continue treatment,all attempts to convince patient to stay by staffs,counselor with no avail, does not want to wait,sign release ama,left the unit in stable condition
== END 2018-09-06 10:00 | disposition left against medical advice (07) | DRG 770 ==
LOC: YASAS 08:08 → Y3W 10:06
PROVIDERS: ADMIT Psychiatry & Neurology Psychiatry; ATTEND Psychiatry & Neurology Psychiatry
PROC: HZ42ZZZ Group Counseling for Substance Abuse Treatment, Cognitive-Behavioral (ICD-10-PCS; principal; 2018-09-02)
DX: F10.20 Alcohol dependence, uncomplicated (principal); F17.213 Nicotine dependence, cigarettes, with withdrawal; J45.22 Mild intermittent asthma with status asthmaticus; R26.2 Difficulty in walking, not elsewhere classified; Z99.89 Dependence on other enabling machines and devices; S89.92XS Unspecified injury of left lower leg, sequela; V03.90XS Pedestrian on foot injured in collision with car, pick-up truck or van, unspecified whether traffic or nontraffic accident, sequela
CPT/HCPCS: 36415; 80053; 81003; 85027; 86593

== ENCOUNTER 2018-09-25 17:05 | Inpatient (IN) | payer OTHER ==
[2018-09-25 18:33] VITALS: BMI 24.3
--- NOTE | 2018-09-25 22:01 | HP ---
CIWA Score Nausea/Vomitin-Mild Nausea/No Vomiting Muscle Tremors: 3 Anxiety: 3 Agitation: 2 Paroxysmal Sweats: 3 Orientation: 0-Oriented Tacttile Disturbances: 0-None Auditory Disturbances: 0-None Visual Disturbances: 0-None Headache: 3-Moderate CIWA-Ar Total Score: 15 - Admission Criteria OASAS Guidelines: Admission for Medically Managed Detox: Requires at least one of the followin. CIWA greater than 12 2. Seizures within the past 24 hours 3. Delirium tremens within the past 24 hours 4. Hallucinations within the past 24 hours 5. Acute intervention needed for co occurring medical disorder 6. Acute intervention needed for co occurring psychiatric disorder 7. Severe withdrawal that cannot be handled at a lower level of care (continued vomiting, continued diarrhea, abnormal vital signs) requiring intravenous medication and/or fluids 8. Admission ROS [facility] - [facility] Chief Complaint: Alcohol withdrawal symptoms Allergies/Adverse Reactions: Allergies Allergy/AdvReac Type Severity Reaction Status Date / Time No Known Allergies Allergy Verified 09/25/18 23:56 History of Present Illness: 62 years old male with 41 years old history of alcohol dependence is seeking admission to detox. Patient has been to multiple detox facilities and reports 9 years of sobriety.He denies past medical history of asthma, hypertension and depression. Denies suicidal ideation at this time Exam Limitations: No Limitations - Ebola screening Have you traveled outside of the country in the last 21 days: No (N) Have you had contact with anyone from an Ebola affected area: No Have you been sick,other than usual withdrawal symptoms: No Do you have a fever: No - Review of Systems Constitutional: Chills, Loss of Appetite, Night Sweats EENT: reports: Sinus Pressure Respiratory: reports: No Symptoms reported Cardiac: reports: No Symptoms Reported GI: reports: Constipated, Poor Appetite, Poor Fluid Intake, Abdominal cramping : reports: No Symptoms Reported Musculoskeletal: reports: Back Pain, Muscle Weakness Integumentary: reports: Dryness, Flushing Neuro: reports: Tremors Endocrine: reports: No Symptoms Reported Hematology: reports: No Symptoms Reported Psychiatric: reports: Mood/Affect Appropiate, Orientated x3 Other Systems: Reviewed and Negative Patient History - Patient Medical History Hx Anemia: No Hx Asthma: No Hx Chronic Obstructive Pulmonary Disease (COPD): No Hx Cancer: No Hx Cardiac Disorders: No Hx Congestive Heart Failure: No Hx Hypertension: No Hx Hypercholesterolemia: No Hx Pacemaker: No HX Cerebrovascular Accident: No Hx Seizures: No Hx Dementia: No Hx Diabetes: No Hx Gastrointestinal Disorders: No Hx Liver Disease: No Hx Genitourinary Disorders: No Hx Sexually Transmitted Disorders: No Hx Renal Disease (ESRD): No Hx Thyroid Disease: No Hx Human Immunodeficiency Virus (HIV): No (LAST TESTED FOUR MONTHS AGO NEGATIVE 04/21) Hx Hepatitis C: No Hx Depression: No Hx Suicide Attempt: No (Denies suicidal ideation at this time) Hx Bipolar Disorder: No Hx Schizophrenia: No - Patient Surgical History Past Surgical History: Yes Hx Neurologic Surgery: No Hx Cataract Extraction: No Hx Cardiac Surgery: No Hx Lung Surgery: No Hx Breast Surgery: No Hx Breast Biopsy: No Hx Abdominal Surgery: No Hx Appendectomy: No Hx Cholecystectomy: No Hx Genitourinary Surgery: No Hx Section: No Hx Orthopedic Surgery: No Other Surgical History: bilateral inguinal hernia repair in 2004 Anesthesia Reaction: No - PPD History Previous Implant?: Yes Documented Results: Negative w/proof Implanted On Prior [facility] Admission?: Yes Date: 03/28/18 Results: 0 mm PPD to be Administered?: No - Reproductive History Patient is a Female of Child Bearing Age (11 -55 yrs old): No (MALE) - Smoking Cessation Smoking history: Current some day smoker Have you smoked in the past 12 months: Yes Aproximately how many cigarettes per day: 5 Cigars Per Day: 1 Hx Chewing Tobacco Use: No Initiated information on smoking cessation: Yes 'Breaking Loose' booklet given: 09/25/18 - Substance & Tx. History Hx Alcohol Use: Yes Hx Substance Use: No Substance Use Type: Alcohol Hx Substance Use Treatment: Yes ([facility]) - Substances Abused Alcohol Route: Oral Frequency: No use in 30 days Amount used: VODKA- 1PINT, 6 -X 24OZ. CAN BEER Age of first use: 21 Date of Last Use: 09/25/18 Family Disease History - Family Disease History Family History: Denies Family Disease History: Other: Father (), Mother () Admission Physical Exam BHS - Vital Signs Vital Signs: Vital Signs - 24 hr 09/25/18 18:32 Temperature 98.6 F Pulse Rate 96 H Respiratory 18 Rate Blood Pressure 117/66 - Physical General Appearance: Yes: Moderate Distress, Tremorous, Irritable, Sweating, Anxious HEENTM: Yes: EOMI, Normal ENT Inspection, Normal Voice, CARLY Respiratory: Yes: Lungs Clear, Normal Breath Sounds, No Respiratory Distress Neck: Yes: Supple Breast: Yes: Breast Exam Deferred Cardiology: Yes: Tachycardia Abdominal: Yes: Normal Bowel Sounds Genitourinary: Yes: Within Normal Limits Back: Yes: Normal Inspection Musculoskeletal: Yes: Muscle Pain Extremities: Yes: Tremors 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: 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: 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, Alert, Normal Mood/Affect Integumentary: Yes: Warm Lymphatic: Yes: Within Normal Limits - Diagnostic (1) Alcohol dependence with uncomplicated withdrawal Current Visit: Yes Status: Chronic (2) Use of cane as ambulatory aid Current Visit: Yes Status: Chronic (3) Asthma Current Visit: Yes Status: Chronic Qualifiers: Asthma severity: mild Asthma persistence: intermittent Asthma complication type: with status asthmaticus Qualified Code(s): J45.22 - Mild intermittent asthma with status asthmaticus (4) Depression (emotion) Current Visit: No Status: Chronic Qualifiers: Depression Type: dysthymia Qualified Code(s): F34.1 - Dysthymic disorder (5) Hypertension Current Visit: No Status: Chronic Qualifiers: Hypertension type: essential hypertension Qualified Code(s): I10 - Essential (primary) hypertension (6) Nicotine dependence Current Visit: No Status: Chronic Qualifiers: Nicotine product type: cigarettes Substance use status: in withdrawal Qualified Code(s): F17.213 - Nicotine dependence, cigarettes, with withdrawal Cleared for Admission BHS - Detox or Rehab [facility] Level of Care: Medically Managed Detox Regimen/Protocol: Librium S Breath Alcohol Content Breath Alcohol Content: 0 Urine Drug Screen - Results Drug Screen Negative: No Urine Drug Screen Results: BZO-Benzodiazepines Inpatient Rehab Admission - Rehab Decision to Admit Inpatient rehab admission?: No
[2018-09-26] MEDS ORDERED: IBUPROFEN 400 MG TABLET (FP) PO PRN (00:08)
[2018-09-26] MEDS ORDERED: LOPERAMIDE HCL 2 MG CAPSULE PO PRN (00:08)
[2018-09-26] MEDS ORDERED: ACETAMINOPHEN 325 MG TABLET (FP) PO PRN (00:08)
[2018-09-26] MEDS ORDERED: MAG HYDROX/AL HYDROX/SIMETH 30 ML UNIT-DOSE CUP PO PRN (00:08)
[2018-09-26] MEDS ORDERED: MAGNESIUM CITRATE 300 ML BOTTLE PO PRN (00:08)
[2018-09-26] MEDS ORDERED: P-EPHED 60MG/TRIPROLIDI 2.5MG TABLET PO PRN (00:08)
[2018-09-26] MEDS ORDERED: MENTHOL/PHENOL 1 EACH UD MM PRN (00:08)
[2018-09-26] MEDS ORDERED: guaiFENesin/D-METHORPHAN HB 10 ML UNIT-DOSE CUPS PO PRN (00:08)
[2018-09-26] MEDS ORDERED: chlordiazePOXIDE HCL 25 MG CAPSULE PO PRN (00:08)
[2018-09-26] MEDS ORDERED: MAGNESIUM HYDROX 2400MG/30ML ORAL SUSPENSION 30 ML CUP PO PRN (00:08)
[2018-09-26] MEDS ORDERED: NICOTINE POLACRILEX 2 MG GUM BC PRN (00:08)
[2018-09-26] MEDS ORDERED: chlordiazePOXIDE HCL 25 MG CAPSULE PO ONE (00:08)
[2018-09-26] MEDS: chlordiazePOXIDE HCL 25 MG CAPSULE PO SCH ×4 (05:10→22:46)
[2018-09-26] MEDS: PRENATAL VITAMINS W/ FOLIC ACID TABLET (FP) PO SCH (10:20)
[2018-09-26] MEDS: NICOTINE 14 MG/24 HOURS TOPICAL PATCH TD SCH (10:20)
--- NOTE | 2018-09-26 18:26 | PN ---
S CIWA - CIWA Score Nausea/Vomitin-No Nausea/No Vomiting Muscle Tremors: 3 Anxiety: 3 Agitation: 3 Paroxysmal Sweats: 3 Orientation: 0-Oriented Tacttile Disturbances: 0-None Auditory Disturbances: 0-None Visual Disturbances: 0-None Headache: 0-None Present CIWA-Ar Total Score: 12 BHS Progress Note (SOAP) Subjective: sweats shakes A & ox 3 in no distress ambulating steadily Vital Signs Temperature 97.6 F 09/26/18 17:28 Pulse Rate 71 09/26/18 17:28 Respiratory Rate 17 09/26/18 17:28 Blood Pressure 106/71 09/26/18 17:28 O2 Sat by Pulse Oximetry (%) no lab results noted for pt withdrawal sx Continue detox Will reorder CMP
[2018-09-26] MEDS ORDERED: MELATONIN 5 MG TABLETS PO PRN (22:00)
[2018-09-26] MEDS: THIAMINE HCL 100 MG TABLET (FP) PO SCH (22:46)
[2018-09-27] MEDS: chlordiazePOXIDE HCL 25 MG CAPSULE PO SCH ×4 (05:58→22:52)
[2018-09-27] MEDS: PRENATAL VITAMINS W/ FOLIC ACID TABLET (FP) PO SCH (10:11)
[2018-09-27] MEDS: NICOTINE 14 MG/24 HOURS TOPICAL PATCH TD SCH (10:12)
[2018-09-27 10:47] LABS: ALBUMIN 3.5 g/dl (3.4-5.0); ALK PHOS 115 U/L (45-117); ANION GAP 3 MMOL/L (8-16); BILIRUBIN,TOTAL 0.1 mg/dL (0.2-1); BLOOD UREA NITROGEN 19 mg/dL (7-18); CALCIUM 8.1 mg/dL (8.5-10.1); CHLORIDE 107 mmol/L (98-107); CO2 28 mmol/L (21-32); CREATININE 0.8 mg/dL (0.55-1.3); GLUCOSE,RANDOM 95 mg/dL (74-106); POTASSIUM 4.6 mmol/L (3.5-5.1); SGOT/AST 20 U/L (15-37); SGPT/ALT 23 U/L (13-61); SODIUM 138 mmol/L (136-145); TOT PROT 7.4 g/dl (6.4-8.2)
[2018-09-27 10:53] LABS: HEMATOCRIT 38.6 % (35.4-49); HEMOGLOBIN 12.8 GM/dL (11.7-16.9); MCH 27.3 pg (25.7-33.7); MCHC 33.3 g/dl (32.0-35.9); MEAN CELL VOLUME 82.1 fl (80-96); MEAN PLT VOLUME 8.5 fl (7.5-11.1); PLATELET COUNT 259 K/MM3 (134-434); RDW 17.2 % (11.9-15.9); WHITE BLOOD COUNT 3.5 K/mm3 (4.0-10.0)
--- NOTE | 2018-09-27 13:31 | PN ---
[facility] CIWA - CIWA Score Nausea/Vomitin-No Nausea/No Vomiting Muscle Tremors: 3 Anxiety: 2 Agitation: 1-Slight > Activity Paroxysmal Sweats: 1-Minimal Palms Moist Orientation: 0-Oriented Tacttile Disturbances: 0-None Auditory Disturbances: 0-None Visual Disturbances: 0-None Headache: 0-None Present CIWA-Ar Total Score: 7 S Progress Note (SOAP) Subjective: tremor sweating slept through the nigh more energy today social with peers in day room Objective: 09/27/18 13:32 Vital Signs Temperature 98.0 F 09/27/18 13:17 Pulse Rate 63 09/27/18 13:17 Respiratory Rate 20 09/27/18 13:17 Blood Pressure 120/70 09/27/18 13:17 O2 Sat by Pulse Oximetry (%) Laboratory Last Values WBC 3.5 K/mm3 (4.0-10.0) L 09/27/18 07:50 RBC 4.70 M/mm3 (4.00-5.60) 09/27/18 07:50 Hgb 12.8 GM/dL (11.7-16.9) 09/27/18 07:50 Hct 38.6 % (35.4-49) 09/27/18 07:50 MCV 82.1 fl (80-96) 09/27/18 07:50 MCH 27.3 pg (25.7-33.7) 09/27/18 07:50 MCHC 33.3 g/dl (32.0-35.9) 09/27/18 07:50 RDW 17.2 % (11.9-15.9) H 09/27/18 07:50 Plt Count 259 K/MM3 (134-434) 09/27/18 07:50 MPV 8.5 fl (7.5-11.1) 09/27/18 07:50 Sodium 138 mmol/L (136-145) 09/27/18 07:50 Potassium 4.6 mmol/L (3.5-5.1) 09/27/18 07:50 Chloride 107 mmol/L (98-107) 09/27/18 07:50 Carbon Dioxide 28 mmol/L (21-32) 09/27/18 07:50 Anion Gap 3 MMOL/L (8-16) L 09/27/18 07:50 BUN 19 mg/dL (7-18) H 09/27/18 07:50 Creatinine 0.8 mg/dL (0.55-1.3) 09/27/18 07:50 Creat Clearance w eGFR > 60 (>60) 09/27/18 07:50 Random Glucose 95 mg/dL (74-106) 09/27/18 07:50 Calcium 8.1 mg/dL (8.5-10.1) L 09/27/18 07:50 Total Bilirubin 0.1 mg/dL (0.2-1) L 09/27/18 07:50 AST 20 U/L (15-37) 09/27/18 07:50 ALT 23 U/L (13-61) 09/27/18 07:50 Alkaline Phosphatase 115 U/L (45-117) 09/27/18 07:50 Total Protein 7.4 g/dl (6.4-8.2) 09/27/18 07:50 Albumin 3.5 g/dl (3.4-5.0) 09/27/18 07:50 RPR Titer Nonreactive (NONREACTIVE) 09/27/18 07:50 lab noted Assessment: 09/27/18 13:33 withdrawal sx Plan: continue detox
[2018-09-27] MEDS: THIAMINE HCL 100 MG TABLET (FP) PO SCH (22:52)
[2018-09-28] MEDS: chlordiazePOXIDE 5 MG CAPSULE PO SCH ×4 (06:20→23:25)
[2018-09-28] MEDS: PRENATAL VITAMINS W/ FOLIC ACID TABLET (FP) PO SCH (10:49)
[2018-09-28] MEDS: NICOTINE 14 MG/24 HOURS TOPICAL PATCH TD SCH (10:49)
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
[2018-09-28] MEDS: THIAMINE HCL 100 MG TABLET (FP) PO SCH (23:03)
[2018-09-29] MEDS: chlordiazePOXIDE HCL 10 MG CAPSULE PO SCH ×3 (06:00→18:07)
[2018-09-29 06:35] VITALS: BP 114/77; PULSE 84; TEMP 97.2
[2018-09-29] MEDS: NICOTINE 14 MG/24 HOURS TOPICAL PATCH TD SCH (11:14)
[2018-09-29] MEDS: PRENATAL VITAMINS W/ FOLIC ACID TABLET (FP) PO SCH (11:14)
--- NOTE | 2018-09-29 14:23 | DS ---
[facility] Detox Discharge Summary Admission Date: 09/25/18 Discharge Date: 09/29/18 - History Present History: Alcohol Dependence Additional Comments: 62 years old male admitted on 09/25/18 for alcohol withdrawal stabilization [facility] Pertinent Past History: bring your bottles of medication and medication list to aftercare appointment update medication list when change of medication important of medication adherence - Physical Exam Results Vital Signs: Vital Signs Temperature 97.2 F L 09/29/18 06:35 Pulse Rate 84 09/29/18 06:35 Respiratory Rate 18 09/29/18 06:35 Blood Pressure 114/77 09/29/18 06:35 O2 Sat by Pulse Oximetry (%) Pertinent Admission Physical Exam Findings: alcohol withdrawal sx Laboratory Last Values WBC 3.5 K/mm3 (4.0-10.0) L 09/27/18 07:50 RBC 4.70 M/mm3 (4.00-5.60) 09/27/18 07:50 Hgb 12.8 GM/dL (11.7-16.9) 09/27/18 07:50 Hct 38.6 % (35.4-49) 09/27/18 07:50 MCV 82.1 fl (80-96) 09/27/18 07:50 MCH 27.3 pg (25.7-33.7) 09/27/18 07:50 MCHC 33.3 g/dl (32.0-35.9) 09/27/18 07:50 RDW 17.2 % (11.9-15.9) H 09/27/18 07:50 Plt Count 259 K/MM3 (134-434) 09/27/18 07:50 MPV 8.5 fl (7.5-11.1) 09/27/18 07:50 Sodium 138 mmol/L (136-145) 09/27/18 07:50 Potassium 4.6 mmol/L (3.5-5.1) 09/27/18 07:50 Chloride 107 mmol/L (98-107) 09/27/18 07:50 Carbon Dioxide 28 mmol/L (21-32) 09/27/18 07:50 Anion Gap 3 MMOL/L (8-16) L 09/27/18 07:50 BUN 19 mg/dL (7-18) H 09/27/18 07:50 Creatinine 0.8 mg/dL (0.55-1.3) 09/27/18 07:50 Creat Clearance w eGFR > 60 (>60) 09/27/18 07:50 Random Glucose 95 mg/dL (74-106) 09/27/18 07:50 Calcium 8.1 mg/dL (8.5-10.1) L 09/27/18 07:50 Total Bilirubin 0.1 mg/dL (0.2-1) L 09/27/18 07:50 AST 20 U/L (15-37) 09/27/18 07:50 ALT 23 U/L (13-61) 09/27/18 07:50 Alkaline Phosphatase 115 U/L (45-117) 09/27/18 07:50 Total Protein 7.4 g/dl (6.4-8.2) 09/27/18 07:50 Albumin 3.5 g/dl (3.4-5.0) 09/27/18 07:50 RPR Titer Nonreactive (NONREACTIVE) 09/27/18 07:50 lab noted - Treatment Hospital Course: Detox Protocol Followed, Detoxed Safely, Responded well, Discharged Condition Good, Rehab Referral Accepted Patient has Accepted a Rehab Referral to: [facility] - Medication Discharge Medications: Ambulatory Orders NK [No Known Home Medication] 01/28/15 - Diagnosis (1) Alcohol dependence with uncomplicated withdrawal Current Visit: Yes Status: Acute (2) Asthma Current Visit: Yes Status: Chronic Qualifiers: Asthma severity: mild Asthma persistence: intermittent Asthma complication type: with status asthmaticus Qualified Code(s): J45.22 - Mild intermittent asthma with status asthmaticus (3) Use of cane as ambulatory aid Current Visit: Yes Status: Chronic (4) Sedative hypnotic or anxiolytic dependence Current Visit: Yes Status: Acute (5) Substance induced mood disorder Current Visit: Yes Status: Suspected - AMA Did Patient Leave Against Medical Advice: No
== END 2018-09-29 16:23 | DRG 775 ==
LOC: YASAS 17:05 → Y3N 22:45
PROVIDERS: ADMIT Surgery; ATTEND Surgery
PROC: HZ2ZZZZ Detoxification Services for Substance Abuse Treatment (ICD-10-PCS; principal; 2018-09-25)
DX: F10.230 Alcohol dependence with withdrawal, uncomplicated (principal); F13.20 Sedative, hypnotic or anxiolytic dependence, uncomplicated; F17.210 Nicotine dependence, cigarettes, uncomplicated; F34.1 Dysthymic disorder; F19.24 Other psychoactive substance dependence with psychoactive substance-induced mood disorder; J45.22 Mild intermittent asthma with status asthmaticus; R26.89 Other abnormalities of gait and mobility
CPT/HCPCS: 36415; 80053; 85027; 86593

== ENCOUNTER 2018-10-25 11:17 | Inpatient (IN) | payer OTHER ==
[2018-10-25 11:53] VITALS: BMI 24.8
--- NOTE | 2018-10-25 13:52 | HP ---
CIWA Score Nausea/Vomitin-No Nausea/No Vomiting Muscle Tremors: 3 Anxiety: 3 Agitation: 3 Paroxysmal Sweats: 3 Orientation: 0-Oriented Tacttile Disturbances: 0-None Auditory Disturbances: 0-None Visual Disturbances: 0-None Headache: 0-None Present CIWA-Ar Total Score: 12 - Admission Criteria OASAS Guidelines: Admission for Medically Managed Detox: Requires at least one of the followin. CIWA greater than 12 2. Seizures within the past 24 hours 3. Delirium tremens within the past 24 hours 4. Hallucinations within the past 24 hours 5. Acute intervention needed for co occurring medical disorder 6. Acute intervention needed for co occurring psychiatric disorder 7. Severe withdrawal that cannot be handled at a lower level of care (continued vomiting, continued diarrhea, abnormal vital signs) requiring intravenous medication and/or fluids 8. Patient presents the following: CIWA greater than 12 Admission Criteria Met: Admission criteria met Admission ROS [facility] - [facility] Chief Complaint: "i am an alcoholi and I want help" Allergies/Adverse Reactions: Allergies Allergy/AdvReac Type Severity Reaction Status Date / Time No Known Allergies Allergy Verified 09/25/18 23:56 History of Present Illness: 62 y/o male with a long hx of alcohol addiction., last here last month for detox. Endorses a 8 yr sober period from due to attending AA meetings but no remarkable period since then. Denies alcohol induced seizures nor blackout. Denies past or current SI/HI Denies any medical nor psych hx. States he smokes about 2 - 5 cigarettes a day, declines NRT Exam Limitations: No Limitations - Ebola screening Have you traveled outside of the country in the last 21 days: No (N) Have you had contact with anyone from an Ebola affected area: No Have you been sick,other than usual withdrawal symptoms: No Do you have a fever: No - Review of Systems Constitutional: No Symptoms Reported EENT: reports: Dental Problems (Missing 3 front teeth) Respiratory: reports: No Symptoms reported Cardiac: reports: No Symptoms Reported GI: reports: Nausea : reports: No Symptoms Reported Musculoskeletal: reports: No Symptoms Reported Neuro: reports: No Symptoms reported Endocrine: reports: No Symptoms Reported Hematology: reports: No Symptoms Reported Psychiatric: reports: Orientated x3, Agitated Other Systems: Reviewed and Negative Patient History - Patient Medical History Hx Anemia: No Hx Asthma: No Hx Chronic Obstructive Pulmonary Disease (COPD): No Hx Cancer: No Hx Cardiac Disorders: No Hx Congestive Heart Failure: No Hx Hypertension: No Hx Hypercholesterolemia: No Hx Pacemaker: No HX Cerebrovascular Accident: No Hx Seizures: No Hx Dementia: No Hx Diabetes: No Hx Gastrointestinal Disorders: No Hx Liver Disease: No Hx Genitourinary Disorders: No Hx Sexually Transmitted Disorders: No Hx Renal Disease (ESRD): No Hx Thyroid Disease: No Hx Human Immunodeficiency Virus (HIV): No (LAST TESTED FOUR MONTHS AGO NEGATIVE 04/21) Hx Hepatitis C: No Hx Depression: No Hx Suicide Attempt: No (Denies suicidal ideation at this time) Hx Bipolar Disorder: No Hx Schizophrenia: No - Patient Surgical History Past Surgical History: Yes Hx Neurologic Surgery: No Hx Cataract Extraction: No Hx Cardiac Surgery: No Hx Lung Surgery: No Hx Breast Surgery: No Hx Breast Biopsy: No Hx Abdominal Surgery: No Hx Appendectomy: No Hx Cholecystectomy: No Hx Genitourinary Surgery: No Hx Section: No Hx Orthopedic Surgery: No Other Surgical History: bilateral inguinal hernia repair in 2004 Anesthesia Reaction: No - PPD History Documented Results: Negative w/proof Date: 03/28/18 Results: 0 mm PPD to be Administered?: No - Reproductive History Patient is a Female of Child Bearing Age (11 -55 yrs old): No - Smoking Cessation Smoking history: Current some day smoker Have you smoked in the past 12 months: Yes Aproximately how many cigarettes per day: 5 Cigars Per Day: 1 Hx Chewing Tobacco Use: No Initiated information on smoking cessation: Yes 'Breaking Loose' booklet given: 10/25/18 - Substance & Tx. History Hx Alcohol Use: Yes Hx Substance Use: Yes Substance Use Type: Marijuana Hx Substance Use Treatment: Yes - Substances Abused Alcohol Route: Oral Frequency: Daily Amount used: 1- 2 pints of liquor, 9 (24oz) can of beer Age of first use: 21 Date of Last Use: 10/25/18 Marijuana/Hashish Route: Smoking Frequency: Daily Amount used: 2 bags ($20) Age of first use: 21 Date of Last Use: 10/25/18 Family Disease History - Family Disease History Family Disease History: Other: Father (), Mother () Admission Physical Exam BHS - Vital Signs Vital Signs: Vital Signs - 24 hr 10/25/18 11:39 Temperature 96.8 F L Pulse Rate 101 H Respiratory 20 Rate Blood Pressure 112/71 - Physical General Appearance: Yes: Appropriately Dressed, Mild Distress, Irritable HEENTM: Yes: Within Normal Limits Respiratory: Yes: No Respiratory Distress, No Accessory Muscle Use Neck: Yes: No masses,lesions,Nodules, Trachea in good position Breast: Yes: Breast Exam Deferred Cardiology: Yes: Tachycardia Abdominal: Yes: Non Tender Genitourinary: Yes: Within Normal Limits Back: Yes: Normal Inspection Musculoskeletal: Yes: full range of Motion, Gait Steady 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: Yes: Within Normal Limits, Fully Oriented, Alert, Motor Strength 5 /5, Normal Response Integumentary: Yes: Normal Color, Dry Lymphatic: Yes: Within Normal Limits Cleared for Admission [facility] - Detox or Rehab [facility] Level of Care: Medically Managed Detox Regimen/Protocol: Librium [facility] Breath Alcohol Content Breath Alcohol Content: 0.122 Urine Drug Screen - Results Drug Screen Negative: No Urine Drug Screen Results: THC-Marijuana, BZO-Benzodiazepines Inpatient Rehab Admission - Rehab Decision to Admit Inpatient rehab admission?: No
[2018-10-25] MEDS ORDERED: MAGNESIUM CITRATE 300 ML BOTTLE PO PRN (14:11)
[2018-10-25] MEDS ORDERED: ACETAMINOPHEN 325 MG TABLET (FP) PO PRN ×2 (14:11)
[2018-10-25] MEDS ORDERED: MELATONIN 5 MG TABLETS PO PRN (14:11)
[2018-10-25] MEDS ORDERED: MAGNESIUM HYDROX 2400MG/30ML ORAL SUSPENSION 30 ML CUP PO PRN (14:11)
[2018-10-25] MEDS ORDERED: MENTHOL/PHENOL 1 EACH UD MM PRN (14:11)
[2018-10-25] MEDS ORDERED: MAG HYDROX/AL HYDROX/SIMETH 30 ML UNIT-DOSE CUP PO PRN (14:11)
[2018-10-25] MEDS ORDERED: METHOCARBAMOL 500 MG TABLET PO PRN (14:11)
[2018-10-25] MEDS ORDERED: chlordiazePOXIDE HCL 10 MG CAPSULE PO PRN (14:11)
[2018-10-25] MEDS ORDERED: hydrOXYzine PAMOATE 25 MG CAPSULE (FP) PO PRN (14:11)
[2018-10-25] MEDS ORDERED: BISMUTH SUBSALICYLATE 524 MG/30 ML UD PO PRN (14:11)
[2018-10-25] MEDS ORDERED: IBUPROFEN 400 MG TABLET (FP) PO PRN (14:11)
[2018-10-25] MEDS: chlordiazePOXIDE HCL 25 MG CAPSULE PO SCH (22:21)
[2018-10-25] MEDS: THIAMINE HCL 100 MG TABLET (FP) PO SCH (22:39)
[2018-10-26] MEDS: chlordiazePOXIDE HCL 25 MG CAPSULE PO SCH ×2 (05:43→13:21)
[2018-10-26 10:19] LABS: HEMATOCRIT 39.9 % (35.4-49); HEMOGLOBIN 13.6 GM/dL (11.7-16.9); MCH 27.9 pg (25.7-33.7); MCHC 34.1 g/dl (32.0-35.9); MEAN CELL VOLUME 81.9 fl (80-96); MEAN PLT VOLUME 8.7 fl (7.5-11.1); PLATELET COUNT 216 K/MM3 (134-434); RBC 4.88 M/mm3 (4.00-5.60); RDW 16.7 % (11.9-15.9); WHITE BLOOD COUNT 3.9 K/mm3 (4.0-10.0)
[2018-10-26] MEDS: PRENATAL VITAMINS W/ FOLIC ACID TABLET (FP) PO SCH (10:19)
[2018-10-26 10:30] LABS: ALBUMIN 3.6 g/dl (3.4-5.0); ALK PHOS 92 U/L (45-117); ANION GAP 7 MMOL/L (8-16); BILIRUBIN,TOTAL 0.5 mg/dL (0.2-1); BLOOD UREA NITROGEN 13 mg/dL (7-18); CALCIUM 8.6 mg/dL (8.5-10.1); CHLORIDE 105 mmol/L (98-107); CO2 27 mmol/L (21-32); CREATININE 1.1 mg/dL (0.55-1.3); GLUCOSE,RANDOM 166 mg/dL (74-106); POTASSIUM 3.9 mmol/L (3.5-5.1); SGOT/AST 29 U/L (15-37); SGPT/ALT 26 U/L (13-61); SODIUM 139 mmol/L (136-145); TOT PROT 7.4 g/dl (6.4-8.2)
--- NOTE | 2018-10-26 19:28 | PN ---
S CIWA - CIWA Score Nausea/Vomitin-No Nausea/No Vomiting Muscle Tremors: 2 Anxiety: 3 Agitation: 1-Slight > Activity Paroxysmal Sweats: 3 Orientation: 0-Oriented Tacttile Disturbances: 2-Mild Itch/Numbness/Burn Auditory Disturbances: 0-None Visual Disturbances: 3-Moderate Sensitivity Headache: 0-None Present CIWA-Ar Total Score: 14 BHS Progress Note (SOAP) Subjective: Anxious, Sweating, Tremors, Body Aches. Objective: PATIENT A & O X 3, OBSERVED AMBULATING ON UNIT. IN NO ACUTE DISTRESS. Vital Signs Temperature 98.1 F 10/26/18 17:37 Pulse Rate 92 H 10/26/18 17:37 Respiratory Rate 19 10/26/18 17:37 Blood Pressure 134/84 10/26/18 17:37 O2 Sat by Pulse Oximetry (%) Laboratory Tests 10/26/18 10/26/18 10/26/18 07:00 07:00 07:00 WBC 3.9 L RBC 4.88 Hgb 13.6 Hct 39.9 MCV 81.9 MCH 27.9 MCHC 34.1 RDW 16.7 H Plt Count 216 MPV 8.7 Sodium 139 Potassium 3.9 Chloride 105 Carbon Dioxide 27 Anion Gap 7 L BUN 13 Creatinine 1.1 Creat Clearance w eGFR 67.83 Random Glucose 166 H Calcium 8.6 Total Bilirubin 0.5 AST 29 ALT 26 Alkaline Phosphatase 92 Total Protein 7.4 Albumin 3.6 RPR Titer Nonreactive LABS NOTED. 10/26/18 19:25 Assessment: 10/26/18 19:26 WITHDRAWAL SYMPTOMS. HYPERGLYCEMIA. 10/26/18 19:27 Plan: CONTINUE DETOX. INCREASE DAILY PO FLUID INTAKE. BGM ACBK FOR ELEVATED ADMISSION RANDOM GLUCOSE LEVEL.
[2018-10-26] MEDS: THIAMINE HCL 100 MG TABLET (FP) PO SCH (23:10)
[2018-10-26] MEDS: chlordiazePOXIDE 5 MG CAPSULE PO SCH (23:10)
[2018-10-27] MEDS: chlordiazePOXIDE 5 MG CAPSULE PO SCH ×2 (06:04→15:00)
[2018-10-27] MEDS: ASPIRIN 81 MG CHEWABLE TABLETS PO SCH (11:07)
[2018-10-27] MEDS: PRENATAL VITAMINS W/ FOLIC ACID TABLET (FP) PO SCH (11:07)
--- NOTE | 2018-10-27 11:55 | PN ---
S CIWA - CIWA Score Nausea/Vomitin Muscle Tremors: 2 Anxiety: 2 Agitation: 2 Paroxysmal Sweats: 2 Orientation: 0-Oriented Tacttile Disturbances: 1-Very Mild Itch/Numbness Auditory Disturbances: 1-Very Mild Visual Disturbances: 0-None Headache: 2-Mild CIWA-Ar Total Score: 14 S Progress Note (SOAP) Subjective: alert,irritable,anxious,interrupted sleep,tremor Objective: 10/27/18 11:51 Vital Signs Temperature 97.9 F 10/27/18 09:23 Pulse Rate 62 10/27/18 09:23 Respiratory Rate 18 10/27/18 09:23 Blood Pressure 132/97 10/27/18 09:23 O2 Sat by Pulse Oximetry (%) Laboratory Last Values WBC 3.9 K/mm3 (4.0-10.0) L 10/26/18 07:00 RBC 4.88 M/mm3 (4.00-5.60) 10/26/18 07:00 Hgb 13.6 GM/dL (11.7-16.9) 10/26/18 07:00 Hct 39.9 % (35.4-49) 10/26/18 07:00 MCV 81.9 fl (80-96) 10/26/18 07:00 MCH 27.9 pg (25.7-33.7) 10/26/18 07:00 MCHC 34.1 g/dl (32.0-35.9) 10/26/18 07:00 RDW 16.7 % (11.9-15.9) H 10/26/18 07:00 Plt Count 216 K/MM3 (134-434) 10/26/18 07:00 MPV 8.7 fl (7.5-11.1) 10/26/18 07:00 Sodium 139 mmol/L (136-145) 10/26/18 07:00 Potassium 3.9 mmol/L (3.5-5.1) 10/26/18 07:00 Chloride 105 mmol/L (98-107) 10/26/18 07:00 Carbon Dioxide 27 mmol/L (21-32) 10/26/18 07:00 Anion Gap 7 MMOL/L (8-16) L 10/26/18 07:00 BUN 13 mg/dL (7-18) 10/26/18 07:00 Creatinine 1.1 mg/dL (0.55-1.3) 10/26/18 07:00 Creat Clearance w eGFR 67.83 (>60) 10/26/18 07:00 POC Glucometer 114 UNITS (80-120) 10/27/18 06:11 Random Glucose 166 mg/dL (74-106) H 10/26/18 07:00 Calcium 8.6 mg/dL (8.5-10.1) 10/26/18 07:00 Total Bilirubin 0.5 mg/dL (0.2-1) 10/26/18 07:00 AST 29 U/L (15-37) 10/26/18 07:00 ALT 26 U/L (13-61) 10/26/18 07:00 Alkaline Phosphatase 92 U/L (45-117) 10/26/18 07:00 Total Protein 7.4 g/dl (6.4-8.2) 10/26/18 07:00 Albumin 3.6 g/dl (3.4-5.0) 10/26/18 07:00 RPR Titer Nonreactive (NONREACTIVE) 10/26/18 07:00 Assessment: 10/27/18 11:54 withdrawal symptom Plan: continue detox
[2018-10-27] MEDS ORDERED: chlordiazePOXIDE HCL 10 MG CAPSULE PO PRN (21:00)
[2018-10-27] MEDS: THIAMINE HCL 100 MG TABLET (FP) PO SCH (23:25)
[2018-10-27] MEDS: chlordiazePOXIDE HCL 10 MG CAPSULE PO SCH (23:25)
[2018-10-28] MEDS: chlordiazePOXIDE HCL 10 MG CAPSULE PO SCH ×2 (06:30→13:05)
--- NOTE | 2018-10-28 09:01 | DS ---
[facility] Detox Discharge Summary Admission Date: 10/25/18 Discharge Date: 10/28/18 - History Present History: Alcohol Dependence, Sedative Dependence - Physical Exam Results Vital Signs: Vital Signs Temperature 97.5 F L 10/28/18 07:16 Pulse Rate 54 L 10/28/18 07:16 Respiratory Rate 18 10/28/18 07:16 Blood Pressure 134/88 10/28/18 07:16 O2 Sat by Pulse Oximetry (%) - Treatment Hospital Course: Detox Protocol Followed, Detoxed Safely, Responded well, Discharged Condition Good, Rehab Referral Accepted - Medication Discharge Medications: Ambulatory Orders Aspirin [Imelda Chewable] 81 mg PO DAILY 10/25/18 - Diagnosis (1) Hyperglycemia Current Visit: Yes Status: Acute (2) Alcohol dependence with uncomplicated withdrawal Current Visit: Yes Status: Chronic (3) Sedative hypnotic or anxiolytic dependence Current Visit: Yes Status: Chronic (4) Asthma Current Visit: Yes Status: Chronic Qualifiers: Asthma severity: mild Asthma persistence: intermittent Asthma complication type: with status asthmaticus Qualified Code(s): J45.22 - Mild intermittent asthma with status asthmaticus (5) Cannabis dependence, uncomplicated Current Visit: Yes Status: Chronic (6) Cocaine dependence Current Visit: Yes Status: Chronic (7) Depression (emotion) Current Visit: No Status: Chronic Qualifiers: Depression Type: dysthymia Qualified Code(s): F34.1 - Dysthymic disorder (8) Hypertension Current Visit: Yes Status: Chronic Qualifiers: Hypertension type: essential hypertension Qualified Code(s): I10 - Essential (primary) hypertension (9) Left knee injury Current Visit: No Status: Chronic Qualifiers: Encounter type: sequela Qualified Code(s): S89.92XS - Unspecified injury of left lower leg, sequela (10) Nicotine dependence Current Visit: Yes Status: Chronic Qualifiers: Nicotine product type: cigarettes Substance use status: uncomplicated Qualified Code(s): F17.210 - Nicotine dependence, cigarettes, uncomplicated (11) Use of cane as ambulatory aid Current Visit: No Status: Chronic (12) Substance induced mood disorder Current Visit: No Status: Suspected (13) Hypotension Current Visit: No Status: Resolved (14) Sedative, hypnotic or anxiolytic use disorder, mild, abuse Current Visit: Yes Status: Chronic - AMA Did Patient Leave Against Medical Advice: No (referred to [facility] rehab. )
[2018-10-28 09:50] VITALS: BP 122/81; PULSE 66; TEMP 97.7
[2018-10-28] MEDS: ASPIRIN 81 MG CHEWABLE TABLETS PO SCH (10:15)
[2018-10-28] MEDS: PRENATAL VITAMINS W/ FOLIC ACID TABLET (FP) PO SCH (10:15)
== END 2018-10-28 13:59 | disposition other institution (70) | DRG 775 ==
LOC: YASAS 11:17 → Y6N 14:39
PROVIDERS: ADMIT Surgery; ATTEND Surgery
PROC: HZ2ZZZZ Detoxification Services for Substance Abuse Treatment (ICD-10-PCS; principal; 2018-10-25)
DX: F10.230 Alcohol dependence with withdrawal, uncomplicated (principal); F13.20 Sedative, hypnotic or anxiolytic dependence, uncomplicated; F12.20 Cannabis dependence, uncomplicated; F17.210 Nicotine dependence, cigarettes, uncomplicated; F34.1 Dysthymic disorder; F19.24 Other psychoactive substance dependence with psychoactive substance-induced mood disorder; I10 Essential (primary) hypertension; J45.22 Mild intermittent asthma with status asthmaticus; R73.9 Hyperglycemia, unspecified; R00.0 Tachycardia, unspecified; R26.2 Difficulty in walking, not elsewhere classified; Z99.89 Dependence on other enabling machines and devices
CPT/HCPCS: 36415; 80053; 82962; 85027; 86593

== ENCOUNTER 2018-10-28 14:32 | Inpatient (IN) | payer OTHER ==
--- NOTE | 2018-10-28 13:34 | HP ---
[facility] Rehab Assess/Revision - Admission History Admitted to Rehab from: Kelechi Crespo Date of Admission to Rehab: 10/28/18 - Findings Detox History & Physical reviewed: Yes Concur with findings: Yes Inpatient Rehab Admission - Rehab Decision to Admit Inpatient rehab admission?: Yes - Initial Determination Are CD services needed?: Yes Free of communicable disease: Yes Not in need of hospitalization: Yes - Rehab Admission Criteria Previous failed treatment: Yes Poor recovery environment: Yes Comorbidities: Yes Lacks judgement: Yes Patient is meeting Inpatient Rehab admission criteria:: Yes
[~2018-10-28 14:32] MED LIST: ACETAMINOPHEN 325 MG TABLET (FP) PO PRN; IBUPROFEN 400 MG TABLET (FP) PO PRN; LOPERAMIDE HCL 2 MG CAPSULE PO PRN; MAG HYDROX/AL HYDROX/SIMETH 30 ML UNIT-DOSE CUP PO PRN; MAGNESIUM CITRATE 300 ML BOTTLE PO PRN; MAGNESIUM HYDROX 2400MG/30ML ORAL SUSPENSION 30 ML CUP PO PRN; MENTHOL/PHENOL 1 EACH UD MM PRN; P-EPHED 60MG/TRIPROLIDI 2.5MG TABLET PO PRN; guaiFENesin 200 MG/10 ML 10 ML UNIT-DOSE CUPS PO PRN; hydrOXYzine PAMOATE 50 MG CAPSULE (FP) PO PRN
[2018-10-28] MEDS ORDERED: MELATONIN 5 MG TABLETS PO PRN ×2 (22:00)
[2018-10-28] MEDS ORDERED: THIAMINE HCL 100 MG TABLET (FP) PO SCH ×2 (22:00)
[2018-10-29 06:50] VITALS: BP 148/76; PULSE 56; TEMP 97.6
[2018-10-29] MEDS ORDERED: PRENATAL VITAMINS W/ FOLIC ACID TABLET (FP) PO SCH ×2 (10:00)
[2018-10-29] MEDS ORDERED: ASPIRIN 81 MG CHEWABLE TABLETS PO SCH ×2 (10:00)
--- NOTE | 2018-10-29 10:29 | PN ---
[facility] Progress Note Note: 62 Y/O MALE ADMITTED YESTERDAY COMES TO NURSING STATION FULLY DRESSED AND DEMANDS TO "SIGN OUT NOW". PT DECLINED TO REMAIN IN REHAB STATING "I HAVE TO LEAVE RIGHT NOW. I DON'T WANT TO BE HERE. I' M GOING TO MY OUT PATIENT PROGRAM AT [facility]". PT WAS COUNSELLED BY MEDICAL STAFF AND COUNSELOR, DANY MINER. ALL EFFORTS TO DISSUADE PT FROM LEAVING PROVED UNSUCCESSFUL. PT REPORTS HE HAS PCP, DR. STRANGE " [place], [place] FOR MEDICAL MANAGEMENT.PT WAS REFERRED TO [facility] FOR CD AFTERCARE. OOB AMBULATING WITH STEADY GAIT. 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 PT IS ALERT O X 3. DENIES S/H/I. Home Medications Medication Instructions Recorded Aspirin [ASA -] 81 mg PO DAILY #14 tab.chew 10/29/18 Vital Signs (72 hours) 10/28/18 10/29/18 10/29/18 15:23 00:30 03:30 Temperature 98.1 F Pulse Rate 68 Respiratory 18 18 18 Rate Blood Pressure 144/74 10/29/18 06:50 Temperature 97.6 F Pulse Rate 56 L Respiratory 18 Rate Blood Pressure 148/76 NAD PLAN:PT SIGNED OUT AMA FOLLOW UP WITH CD AFTERCARE AND MEDICAL MANAGEMENT RECOMMENDED. Current Active Problems Alcohol dependence (Chronic) Cannabis dependence, uncomplicated (Chronic) Nicotine dependence (Chronic)
== END 2018-10-29 09:30 | disposition left against medical advice (07) | DRG 770 ==
LOC: YASAS 14:32 → Y5N 14:33
PROVIDERS: ADMIT Neuromusculoskeletal Medicine & OMM; ATTEND Neuromusculoskeletal Medicine & OMM
PROC: HZ42ZZZ Group Counseling for Substance Abuse Treatment, Cognitive-Behavioral (ICD-10-PCS; principal; 2018-10-28)
DX: F10.20 Alcohol dependence, uncomplicated (principal); F12.20 Cannabis dependence, uncomplicated; F17.210 Nicotine dependence, cigarettes, uncomplicated

== ENCOUNTER 2018-12-04 16:43 | Inpatient (IN) | payer OTHER ==
[2018-12-04 19:31] VITALS: BMI 24.2
--- NOTE | 2018-12-04 21:20 | HP ---
CIWA Score Nausea/Vomitin-No Nausea/No Vomiting Muscle Tremors: 3 Anxiety: 4-Mod. Anxious/Guarded Agitation: 4-Moderately Restless Paroxysmal Sweats: No Perspiration Orientation: 0-Oriented Tacttile Disturbances: 0-None Auditory Disturbances: 0-None Visual Disturbances: 0-None Headache: 1-Very Mild CIWA-Ar Total Score: 12 - Admission Criteria OASAS Guidelines: Admission for Medically Managed Detox: Requires at least one of the followin. CIWA greater than 12 2. Seizures within the past 24 hours 3. Delirium tremens within the past 24 hours 4. Hallucinations within the past 24 hours 5. Acute intervention needed for co occurring medical disorder 6. Acute intervention needed for co occurring psychiatric disorder 7. Severe withdrawal that cannot be handled at a lower level of care (continued vomiting, continued diarrhea, abnormal vital signs) requiring intravenous medication and/or fluids 8. Patient presents the following: CIWA greater than 12 Admission Criteria Met: Admission criteria met Admission ROS [facility] Chief Complaint: c/o withdrawal sx's. seeking detox Allergies/Adverse Reactions: Allergies Allergy/AdvReac Type Severity Reaction Status Date / Time No Known Allergies Allergy Verified 12/04/18 19:31 History of Present Illness: 63 Y.O. MALE WITH ALCOHOLISM HERE FOR DETOX. CLIENT IS SELF REFERRED HE IS KNOWN TO THIS PROGRAM. LAST HERE 10/2018 WHERE HE COMPLETED DETOX BUT SIGNED OUT AMA IN REHAB AFTER A DAY. CLIENT REPORTS RELAPSING IMMEDIATELY THEREAFTER. DRINKING DAILY. LAST DRINK EARLIER TODAY TO PREVENT WITHDRAWAL SX'S. 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 PRESENTS TODAY WITH C/O WITHDRAWAL SX'S. CIWA 12. DENIES HX/O SEIZURES, SI/HI/AVH. DOMICILED, DISABLED, DENIES LEGALS Exam Limitations: Physical Impairment ([place] WITH CANE DUE TO CHRONIC HIP PAIN) - Ebola screening Have you traveled outside of the country in the last 21 days: No (N) Have you had contact with anyone from an Ebola affected area: No Do you have a fever: No - Review of Systems Constitutional: Malaise (CHRONIC HIP PAIN) EENT: reports: Dental Problems (MISSING TEETH) Respiratory: reports: No Symptoms reported Cardiac: reports: No Symptoms Reported GI: reports: Poor Fluid Intake : reports: No Symptoms Reported Musculoskeletal: reports: Joint Pain (BILAT HIP PAIN) Integumentary: reports: No Symptoms Reported Neuro: reports: Headache, Tremors (R/T WITHDRAWAL) Endocrine: reports: No Symptoms Reported Hematology: reports: No Symptoms Reported Psychiatric: reports: Orientated x3, Agitated (IRRITABLE), Depressed (DEPRESSED AFFECT-DENIES) Other Systems: Reviewed and Negative Patient History - Patient Medical History Hx Anemia: No Hx Asthma: No Hx Chronic Obstructive Pulmonary Disease (COPD): No Hx Cancer: No Hx Cardiac Disorders: No Hx Congestive Heart Failure: No Hx Hypertension: Yes (DENIES NOTED IN CHART NOT TAKING MEDS) Hx Hypercholesterolemia: Yes (DENIES NOTED IN CHART NOT TAKING MEDS) Hx Pacemaker: No HX Cerebrovascular Accident: No Hx Seizures: No Hx Dementia: No Hx Diabetes: No Hx Gastrointestinal Disorders: No Hx Liver Disease: No Hx Genitourinary Disorders: No Hx Sexually Transmitted Disorders: No Hx Renal Disease (ESRD): No Hx Thyroid Disease: No Hx Human Immunodeficiency Virus (HIV): No (LAST TESTED FOUR MONTHS AGO NEGATIVE 04/21) Hx Hepatitis C: No Hx Depression: No Hx Suicide Attempt: No Hx Bipolar Disorder: No Hx Schizophrenia: No - Patient Surgical History Past Surgical History: Yes Hx Neurologic Surgery: No Hx Cataract Extraction: No Hx Cardiac Surgery: No Hx Lung Surgery: No Hx Breast Surgery: No Hx Breast Biopsy: No Hx Abdominal Surgery: No Hx Appendectomy: No Hx Cholecystectomy: No Hx Genitourinary Surgery: No Hx Section: No Hx Orthopedic Surgery: No Other Surgical History: bilateral inguinal hernia repair in 2004 Anesthesia Reaction: No - PPD History Previous Implant?: Yes Documented Results: Negative w/proof Implanted On Prior [facility] Admission?: Yes Date: 03/28/18 Results: 0 mm. PPD to be Administered?: No - Smoking Cessation Smoking history: Current some day smoker Have you smoked in the past 12 months: Yes Aproximately how many cigarettes per day: 2 Cigars Per Day: 1 Hx Chewing Tobacco Use: No Initiated information on smoking cessation: Yes 'Breaking Loose' booklet given: 12/04/18 - Substance & Tx. History Hx Alcohol Use: Yes Hx Substance Use: Yes Substance Use Type: Alcohol Hx Substance Use Treatment: Yes ([facility]) - Substances abused Alcohol Substance route: Oral Frequency: Daily Amount used: liquor- 1 pint, beer- 9 cans Age of first use: 21 Date of last use: 12/04/18 Family Disease History - Family Disease History Family Disease History: Other: Father (), Mother () Admission Physical Exam [facility] - Vital Signs Vital Signs: Vital Signs - 24 hr 12/04/18 12/04/18 12/04/18 19:23 19:35 20:29 Temperature 97.5 F L 97.5 F L 97.5 F L Pulse Rate 79 79 79 Respiratory 18 18 18 Rate Blood Pressure 128/79 128/79 128/79 - Physical General Appearance: Yes: Irritable, Anxious HEENTM: Yes: EOMI, Normocephalic, Normal Voice, CARLY, Pharynx Normal, Other ( MISSING TEETH OLD SCAR TO LEFT SIDE OF FACE) Respiratory: Yes: Chest Non-Tender, Lungs Clear, Normal Breath Sounds, No Respiratory Distress, No Accessory Muscle Use Neck: Yes: No masses,lesions,Nodules, Supple, Trachea in good position Breast: Yes: Breast Exam Deferred Cardiology: Yes: Regular Rhythm, Regular Rate, S1, S2 Abdominal: Yes: Normal Bowel Sounds, Non Tender, Flat, Soft Genitourinary: Yes: Within Normal Limits (NO C/O) Back: Yes: Normal Inspection Musculoskeletal: Yes: Other (AMBULATES WITH CANE) Extremities: Yes: Normal Capillary Refill, Normal Range of Motion, Non-Tender, Tremors 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: Yes: Fully Oriented, Alert, Motor Strength 5/5, Depressed Affect, Other (SPEAKING TO SELF- REFUSES PSYCH CONSULT, DENIES HX/O) Integumentary: Yes: Dry, Warm Lymphatic: Yes: Within Normal Limits - Diagnostic (1) Chronic hip pain, bilateral Current Visit: Yes Status: Chronic (2) Alcohol dependence with uncomplicated withdrawal Current Visit: Yes Status: Acute (3) Nicotine dependence Current Visit: Yes Status: Chronic Qualifiers: Nicotine product type: cigarettes Substance use status: uncomplicated Qualified Code(s): F17.210 - Nicotine dependence, cigarettes, uncomplicated (4) Use of cane as ambulatory aid Current Visit: Yes Status: Chronic (5) Substance induced mood disorder Current Visit: Yes Status: Suspected (6) 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
[2018-12-04] MEDS ORDERED: hydrOXYzine PAMOATE 25 MG CAPSULE (FP) PO PRN (21:24)
[2018-12-04] MEDS ORDERED: METHOCARBAMOL 500 MG TABLET PO PRN (21:24)
[2018-12-04] MEDS ORDERED: BISMUTH SUBSALICYLATE 524 MG/30 ML UD PO PRN (21:24)
[2018-12-04] MEDS ORDERED: P-EPHED 60MG/TRIPROLIDI 2.5MG TABLET PO PRN (21:24)
[2018-12-04] MEDS ORDERED: MELATONIN 5 MG TABLETS PO PRN (21:24)
[2018-12-04] MEDS ORDERED: MAGNESIUM CITRATE 300 ML BOTTLE PO PRN (21:24)
[2018-12-04] MEDS ORDERED: IBUPROFEN 400 MG TABLET (FP) PO PRN (21:24)
[2018-12-04] MEDS ORDERED: guaiFENesin 200 MG/10 ML 10 ML UNIT-DOSE CUPS PO PRN (21:24)
[2018-12-04] MEDS ORDERED: DICYCLOMINE HCL 10 MG CAPSULE PO PRN (21:24)
[2018-12-04] MEDS ORDERED: ONDANSETRON *ODT* 4 MG TABLET SL PRN (21:24)
[2018-12-04] MEDS ORDERED: MAGNESIUM HYDROX 2400MG/30ML ORAL SUSPENSION 30 ML CUP PO PRN (21:24)
[2018-12-04] MEDS ORDERED: MENTHOL/PHENOL 1 EACH UD MM PRN (21:24)
[2018-12-04] MEDS ORDERED: NICOTINE POLACRILEX 2 MG GUM BUC PRN (21:24)
[2018-12-04] MEDS ORDERED: MAG HYDROX/AL HYDROX/SIMETH 30 ML UNIT-DOSE CUP PO PRN (21:24)
[2018-12-04] MEDS ORDERED: chlordiazePOXIDE HCL 10 MG CAPSULE PO PRN (21:24)
[2018-12-04] MEDS: THIAMINE HCL 100 MG TABLET (FP) PO SCH (22:53)
[2018-12-04] MEDS: chlordiazePOXIDE HCL 25 MG CAPSULE PO SCH (22:53)
[2018-12-05] MEDS: ACETAMINOPHEN 325 MG TABLET (FP) PO PRN (02:50)
[2018-12-05] MEDS: chlordiazePOXIDE HCL 25 MG CAPSULE PO SCH ×2 (06:35→13:59)
[2018-12-05 10:23] LABS: ALBUMIN 3.8 g/dl (3.4-5.0); ALK PHOS 81 U/L (45-117); ANION GAP 5 MMOL/L (8-16); BILIRUBIN,TOTAL 0.5 mg/dL (0.2-1); BLOOD UREA NITROGEN 10 mg/dL (7-18); CHLORIDE 104 mmol/L (98-107); CO2 29 mmol/L (21-32); CREATININE 0.8 mg/dL (0.55-1.3); GLUCOSE,RANDOM 88 mg/dL (74-106); POTASSIUM 4.6 mmol/L (3.5-5.1); SGOT/AST 45 U/L (15-37); SGPT/ALT 54 U/L (13-61); SODIUM 138 mmol/L (136-145); TOT PROT 7.7 g/dl (6.4-8.2)
[2018-12-05 10:24] LABS: HEMATOCRIT 43.5 % (35.4-49); HEMOGLOBIN 14.1 GM/dL (11.7-16.9); MCH 26.6 pg (25.7-33.7); MCHC 32.3 g/dl (32.0-35.9); MEAN CELL VOLUME 82.4 fl (80-96); MEAN PLT VOLUME 8.6 fl (7.5-11.1); PLATELET COUNT 243 K/MM3 (134-434); RBC 5.28 M/mm3 (4.00-5.60); RDW 17.9 % (11.9-15.9); WHITE BLOOD COUNT 3.7 K/mm3 (4.0-10.0)
[2018-12-05] MEDS: NICOTINE 14 MG/24 HOURS TOPICAL PATCH TD SCH (10:33)
[2018-12-05] MEDS: PRENATAL VITAMINS W/ FOLIC ACID TABLET (FP) PO SCH (10:33)
[2018-12-05] MEDS: LIDOCAINE 5% TOPICAL PATCH TP SCH (11:31)
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
[2018-12-05 17:26] LABS: URINE APPEARANCE TURBID; URINE BILIRUBIN NEGATIVE (NEGATIVE); URINE COLOR YELLOW; URINE GLUCOSE (UA) NEGATIVE (NEGATIVE); URINE KETONE TRACE (NEGATIVE); URINE LEUK ESTERASE NEGATIVE (NEGATIVE); URINE NITRITE NEGATIVE (NEGATIVE); URINE PROTEIN NEGATIVE (NEGATIVE)
[2018-12-05] MEDS: chlordiazePOXIDE 5 MG CAPSULE PO SCH (23:00)
[2018-12-05] MEDS: THIAMINE HCL 100 MG TABLET (FP) PO SCH (23:00)
[2018-12-05] MEDS: LIDOCAINE PATCH REMOVAL MC SCH (23:00)
[2018-12-06] MEDS: ACETAMINOPHEN 325 MG TABLET (FP) PO PRN ×2 (05:00→10:05)
[2018-12-06] MEDS: chlordiazePOXIDE 5 MG CAPSULE PO SCH ×2 (06:08→13:58)
[2018-12-06] MEDS: IBUPROFEN 400 MG TABLET (FP) PO PRN ×2 (06:12→14:01)
[2018-12-06] MEDS: PRENATAL VITAMINS W/ FOLIC ACID TABLET (FP) PO SCH (10:04)
[2018-12-06] MEDS: NICOTINE 14 MG/24 HOURS TOPICAL PATCH TD SCH (10:04)
[2018-12-06] MEDS: LIDOCAINE 5% TOPICAL PATCH TP SCH (10:05)
--- NOTE | 2018-12-06 13:32 | PN ---
S CIWA - CIWA Score Nausea/Vomitin-Mild Nausea/No Vomiting Muscle Tremors: 2 Anxiety: 2 Agitation: 2 Paroxysmal Sweats: 1-Minimal Palms Moist Orientation: 0-Oriented Tacttile Disturbances: 0-None Auditory Disturbances: 0-None Visual Disturbances: 0-None Headache: 1-Very Mild CIWA-Ar Total Score: 9 S Progress Note (SOAP) Subjective: feeling better today social with peers in day room discuss aftercare with staff Objective: 12/06/18 13:27 Vital Signs Temperature 96.8 F L 12/06/18 09:28 Pulse Rate 85 12/06/18 09:28 Respiratory Rate 18 12/06/18 09:28 Blood Pressure 163/101 H 12/06/18 09:28 O2 Sat by Pulse Oximetry (%) Laboratory Last Values WBC 3.7 K/mm3 (4.0-10.0) L 12/05/18 08:00 RBC 5.28 M/mm3 (4.00-5.60) 12/05/18 08:00 Hgb 14.1 GM/dL (11.7-16.9) 12/05/18 08:00 Hct 43.5 % (35.4-49) 12/05/18 08:00 MCV 82.4 fl (80-96) 12/05/18 08:00 MCH 26.6 pg (25.7-33.7) 12/05/18 08:00 MCHC 32.3 g/dl (32.0-35.9) 12/05/18 08:00 RDW 17.9 % (11.9-15.9) H 12/05/18 08:00 Plt Count 243 K/MM3 (134-434) 12/05/18 08:00 MPV 8.6 fl (7.5-11.1) 12/05/18 08:00 Sodium 138 mmol/L (136-145) 12/05/18 07:45 Potassium 4.6 mmol/L (3.5-5.1) 12/05/18 07:45 Chloride 104 mmol/L (98-107) 12/05/18 07:45 Carbon Dioxide 29 mmol/L (21-32) 12/05/18 07:45 Anion Gap 5 MMOL/L (8-16) L 12/05/18 07:45 BUN 10 mg/dL (7-18) 12/05/18 07:45 Creatinine 0.8 mg/dL (0.55-1.3) 12/05/18 07:45 Creat Clearance w eGFR 97.63 (>60) 12/05/18 07:45 Random Glucose 88 mg/dL (74-106) 12/05/18 07:45 Calcium 9.0 mg/dL (8.5-10.1) 12/05/18 07:45 Total Bilirubin 0.5 mg/dL (0.2-1) 12/05/18 07:45 AST 45 U/L (15-37) H 12/05/18 07:45 ALT 54 U/L (13-61) 12/05/18 07:45 Alkaline Phosphatase 81 U/L (45-117) 12/05/18 07:45 Total Protein 7.7 g/dl (6.4-8.2) 12/05/18 07:45 Albumin 3.8 g/dl (3.4-5.0) 12/05/18 07:45 Urine Color Yellow 12/05/18 12:40 Urine Appearance Turbid 12/05/18 12:40 Urine pH 5.0 (5.0-8.0) 12/05/18 12:40 Ur Specific [place] 1.027 (1.010-1.035) 12/05/18 12:40 Urine Protein Negative (NEGATIVE) 12/05/18 12:40 Urine Glucose (UA) Negative (NEGATIVE) 12/05/18 12:40 Urine Ketones Trace (NEGATIVE) H 12/05/18 12:40 Urine Blood Negative (NEGATIVE) 12/05/18 12:40 Urine Nitrite Negative (NEGATIVE) 12/05/18 12:40 Urine Bilirubin Negative (NEGATIVE) 12/05/18 12:40 Urine Urobilinogen 1.0 mg/dL (0.2-1.0) 12/05/18 12:40 Ur Leukocyte Esterase Negative (NEGATIVE) 12/05/18 12:40 RPR Titer Nonreactive (NONREACTIVE) 12/05/18 07:45 lab noted hypertension begin amlodopin 10 mg po daily 12/06/18 13:32 Assessment: 12/06/18 13:33 alcohol withdrawal sx hypertension Plan: continue detox amlodipin 10 mg po daily
[2018-12-06] MEDS ORDERED: amLODIPine BESYLATE 10 MG TABLET (FP) PO SCH (13:45)
[2018-12-06] MEDS ORDERED: chlordiazePOXIDE HCL 10 MG CAPSULE PO PRN (21:00)
[2018-12-06 22:23] VITALS: TEMP 97.6
[2018-12-06 22:24] VITALS: BP 156/87; PULSE 86
[2018-12-06] MEDS: THIAMINE HCL 100 MG TABLET (FP) PO SCH (22:40)
[2018-12-06] MEDS: LIDOCAINE PATCH REMOVAL MC SCH (22:40)
[2018-12-06] MEDS: chlordiazePOXIDE HCL 10 MG CAPSULE PO SCH (22:40)
[2018-12-07] MEDS: ACETAMINOPHEN 325 MG TABLET (FP) PO PRN (03:26)
[2018-12-07] MEDS: chlordiazePOXIDE HCL 10 MG CAPSULE PO SCH (06:02)
== END 2018-12-07 06:47 | disposition home or self-care (01) | DRG 775 ==
LOC: YASAS 16:43 → Y3N 22:24
PROVIDERS: ADMIT Surgery; ATTEND Surgery
PROC: HZ2ZZZZ Detoxification Services for Substance Abuse Treatment (ICD-10-PCS; principal; 2018-12-04)
DX: F10.230 Alcohol dependence with withdrawal, uncomplicated (principal); F19.24 Other psychoactive substance dependence with psychoactive substance-induced mood disorder; I10 Essential (primary) hypertension; E78.00 Pure hypercholesterolemia, unspecified; R44.0 Auditory hallucinations; M25.551 Pain in right hip; M25.552 Pain in left hip; M25.562 Pain in left knee; M54.5 Low back pain; G89.29 Other chronic pain; R26.89 Other abnormalities of gait and mobility; Z99.89 Dependence on other enabling machines and devices; V03.90XD Pedestrian on foot injured in collision with car, pick-up truck or van, unspecified whether traffic or nontraffic accident, subsequent encounter
CPT/HCPCS: 36415; 80053; 81003; 85027; 86593

== ENCOUNTER 2018-12-29 08:43 | Inpatient (IN) | payer OTHER ==
[2018-12-29 09:20] VITALS: BMI 24.3
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
[2018-12-29] MEDS ORDERED: guaiFENesin 200 MG/10 ML 10 ML UNIT-DOSE CUPS PO PRN (10:28)
[2018-12-29] MEDS ORDERED: IBUPROFEN 400 MG TABLET (FP) PO PRN (10:28)
[2018-12-29] MEDS ORDERED: MENTHOL/PHENOL 1 EACH UD MM PRN (10:28)
[2018-12-29] MEDS ORDERED: P-EPHED 60MG/TRIPROLIDI 2.5MG TABLET PO PRN (10:28)
[2018-12-29] MEDS ORDERED: MAGNESIUM CITRATE 300 ML BOTTLE PO PRN (10:28)
[2018-12-29] MEDS ORDERED: MAGNESIUM HYDROX 2400MG/30ML ORAL SUSPENSION 30 ML CUP PO PRN (10:28)
[2018-12-29] MEDS ORDERED: MAG HYDROX/AL HYDROX/SIMETH 30 ML UNIT-DOSE CUP PO PRN (10:28)
[2018-12-29] MEDS ORDERED: ACETAMINOPHEN 325 MG TABLET (FP) PO PRN (10:28)
[2018-12-29 17:39] LABS: URINE APPEARANCE CLEAR; URINE BILIRUBIN NEGATIVE (NEGATIVE); URINE COLOR YELLOW; URINE GLUCOSE (UA) NEGATIVE (NEGATIVE); URINE KETONE NEGATIVE (NEGATIVE); URINE LEUK ESTERASE NEGATIVE (NEGATIVE); URINE NITRITE NEGATIVE (NEGATIVE); URINE PROTEIN NEGATIVE (NEGATIVE)
[2018-12-29] MEDS: THIAMINE HCL 100 MG TABLET (FP) PO SCH (21:59)
[2018-12-29] MEDS ORDERED: MELATONIN 5 MG TABLETS PO PRN (22:00)
[2018-12-30] MEDS: PRENATAL VITAMINS W/ FOLIC ACID TABLET (FP) PO SCH (10:09)
[2018-12-30] MEDS: THIAMINE HCL 100 MG TABLET (FP) PO SCH (21:42)
[2018-12-31] MEDS: PRENATAL VITAMINS W/ FOLIC ACID TABLET (FP) PO SCH (10:11)
[2018-12-31] MEDS: THIAMINE HCL 100 MG TABLET (FP) PO SCH (21:55)
[2019-01-01] MEDS: PRENATAL VITAMINS W/ FOLIC ACID TABLET (FP) PO SCH (10:00)
[2019-01-01] MEDS: THIAMINE HCL 100 MG TABLET (FP) PO SCH (21:29)
[2019-01-02] MEDS: PRENATAL VITAMINS W/ FOLIC ACID TABLET (FP) PO SCH (09:56)
[2019-01-02] MEDS: THIAMINE HCL 100 MG TABLET (FP) PO SCH (21:18)
[2019-01-03] MEDS: PRENATAL VITAMINS W/ FOLIC ACID TABLET (FP) PO SCH (10:11)
[2019-01-03] MEDS: THIAMINE HCL 100 MG TABLET (FP) PO SCH (21:38)
[2019-01-04 06:43] VITALS: BP 138/74; PULSE 64; TEMP 97.6
--- NOTE | 2019-01-04 08:34 | PN ---
[facility] Progress Note Note: PT WAS ADMITTED TO REHAB ON 12/29/18 AND PT NOW DECLINING TO CONTINUE WITH REHAB STATING "HERE DOES NOT MEET MY CRITERIA.I CAN FIND IT ON MY OWN". EFFORTS TO ENCOURAGE PT TO STAY IN TREATMENT WAS UNSUCCESSFUL. PT WAS SEEN BY DESI DESAI COUNSELOR BEFORE EXITING. PT REPORTS HE HAS PRIMARY CARE AT [facility]. AMBULATING WITH STEADY GAIT. PT IS ALERT O X 3. DENIES S/H/I. Home Medications Medication Instructions Recorded NK [No Known Home Medication] 12/29/18 Vital Signs - 24 hr 01/04/19 01/04/19 01/04/19 00:30 03:30 06:38 Temperature 97.6 F Pulse Rate 64 Respiratory 18 18 18 Rate Blood Pressure 138/74 Laboratory Tests 12/29/18 15:30 Urine Color Yellow Urine Appearance Clear Urine pH 5.0 Ur Specific [place] 1.023 Urine Protein Negative Urine Glucose (UA) Negative Urine Ketones Negative Urine Blood Negative Urine Nitrite Negative Urine Bilirubin Negative Urine Urobilinogen 1.0 Ur Leukocyte Esterase Negative NAD PLAN:PT SIGNED OUT AMA FOLLOW UP WITH CD AFTERCARE RECOMMENDATION.
== END 2019-01-04 08:42 | disposition left against medical advice (07) | DRG 770 ==
LOC: YASAS 08:43 → Y3W 11:04
PROVIDERS: ADMIT Neuromusculoskeletal Medicine & OMM; ATTEND Neuromusculoskeletal Medicine & OMM
PROC: HZ42ZZZ Group Counseling for Substance Abuse Treatment, Cognitive-Behavioral (ICD-10-PCS; principal; 2018-12-29)
DX: F10.20 Alcohol dependence, uncomplicated (principal); F12.20 Cannabis dependence, uncomplicated; F17.210 Nicotine dependence, cigarettes, uncomplicated
CPT/HCPCS: 81003

== ENCOUNTER 2019-02-10 08:33 | Inpatient (IN) | payer OTHER ==
[2019-02-10 10:05] VITALS: BMI 25.1
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
[2019-02-10] MEDS ORDERED: METHOCARBAMOL 500 MG TABLET PO PRN (10:59)
[2019-02-10] MEDS ORDERED: MENTHOL/PHENOL 1 EACH UD MM PRN (10:59)
[2019-02-10] MEDS ORDERED: MAGNESIUM HYDROX 2400MG/30ML ORAL SUSPENSION 30 ML CUP PO PRN (10:59)
[2019-02-10] MEDS ORDERED: MAG HYDROX/AL HYDROX/SIMETH 30 ML UNIT-DOSE CUP PO PRN (10:59)
[2019-02-10] MEDS ORDERED: MAGNESIUM CITRATE 300 ML BOTTLE PO PRN (10:59)
[2019-02-10] MEDS ORDERED: MELATONIN 5 MG TABLETS PO PRN (10:59)
[2019-02-10] MEDS ORDERED: BISMUTH SUBSALICYLATE 524 MG/30 ML UD PO PRN (10:59)
[2019-02-10] MEDS ORDERED: hydrOXYzine HCL 25 MG TABLET (FP) PO PRN (10:59)
[2019-02-10] MEDS ORDERED: LORazepam 1 MG TABLET PO PRN (10:59)
[2019-02-10] MEDS ORDERED: IBUPROFEN 400 MG TABLET (FP) PO PRN (10:59)
[2019-02-10] MEDS ORDERED: ACETAMINOPHEN 325 MG TABLET (FP) PO PRN ×2 (10:59)
[2019-02-10 14:24] LABS: HEMATOCRIT 39.1 % (35.4-49); HEMOGLOBIN 12.7 GM/dL (11.7-16.9); MCH 26.8 pg (25.7-33.7); MCHC 32.5 g/dl (32.0-35.9); MEAN CELL VOLUME 82.5 fl (80-96); MEAN PLT VOLUME 8.8 fl (7.5-11.1); RBC 4.74 M/mm3 (4.00-5.60); RDW 17.3 % (11.9-15.9); WHITE BLOOD COUNT 3.1 K/mm3 (4.0-10.0)
[2019-02-10 14:36] LABS: ALBUMIN 4.1 g/dl (3.4-5.0); BILIRUBIN,TOTAL 0.5 mg/dL (0.2-1); BLOOD UREA NITROGEN 16.1 mg/dL (7-18); CALCIUM 8.7 mg/dL (8.5-10.1); CREATININE 0.8 mg/dL (0.55-1.3); POTASSIUM 4.1 mmol/L (3.5-5.1); TOT PROT 8.1 g/dl (6.4-8.2)
[2019-02-10 14:47] LABS: PLATELET COUNT 217 K/MM3 (134-434)
[2019-02-10] MEDS: LORazepam 2 MG TABLET PO SCH ×2 (17:42→22:16)
[2019-02-10 19:17] LABS: PH,URINE 5.5 (5.0-8.0); URINE APPEARANCE CLEAR; URINE BILIRUBIN NEGATIVE (NEGATIVE); URINE COLOR YELLOW; URINE GLUCOSE (UA) NEGATIVE (NEGATIVE); URINE KETONE NEGATIVE (NEGATIVE); URINE LEUK ESTERASE NEGATIVE (NEGATIVE); URINE NITRITE NEGATIVE (NEGATIVE); URINE PROTEIN TRACE (NEGATIVE); URINE UROBILINOGEN 0.2 mg/dL (0.2-1.0)
[2019-02-10] MEDS: THIAMINE HCL 100 MG TABLET (FP) PO SCH (22:17)
[2019-02-11] MEDS: LORazepam 2 MG TABLET PO SCH ×4 (06:14→22:39)
[2019-02-11] MEDS: PRENATAL VITAMINS W/ FOLIC ACID TABLET (FP) PO SCH (10:29)
--- NOTE | 2019-02-11 10:59 | PN ---
S CIWA - CIWA Score Nausea/Vomitin Muscle Tremors: 2 Anxiety: 2 Agitation: 2 Paroxysmal Sweats: No Perspiration Orientation: 0-Oriented Tacttile Disturbances: 1-Very Mild Itch/Numbness Auditory Disturbances: 1-Very Mild Visual Disturbances: 0-None Headache: 1-Very Mild CIWA-Ar Total Score: 11 S Progress Note (SOAP) Subjective: alert,irritable,anxious,interrupted sleep,tremor Objective: 02/11/19 10:58 Vital Signs Temperature 98.2 F 02/11/19 09:37 Pulse Rate 89 02/11/19 09:37 Respiratory Rate 16 02/11/19 09:37 Blood Pressure 133/90 02/11/19 09:37 O2 Sat by Pulse Oximetry (%) Laboratory Last Values WBC 3.1 K/mm3 (4.0-10.0) L 02/10/19 11:30 RBC 4.74 M/mm3 (4.00-5.60) 02/10/19 11:30 Hgb 12.7 GM/dL (11.7-16.9) 02/10/19 11:30 Hct 39.1 % (35.4-49) 02/10/19 11:30 MCV 82.5 fl (80-96) 02/10/19 11:30 MCH 26.8 pg (25.7-33.7) 02/10/19 11:30 MCHC 32.5 g/dl (32.0-35.9) 02/10/19 11:30 RDW 17.3 % (11.9-15.9) H 02/10/19 11:30 Plt Count 217 K/MM3 (134-434) 02/10/19 11:30 MPV 8.8 fl (7.5-11.1) 02/10/19 11:30 Sodium 139 mmol/L (136-145) 02/10/19 11:30 Potassium 4.1 mmol/L (3.5-5.1) 02/10/19 11:30 Chloride 106 mmol/L (98-107) 02/10/19 11:30 Carbon Dioxide 25 mmol/L (21-32) 02/10/19 11:30 Anion Gap 9 MMOL/L (8-16) 02/10/19 11:30 BUN 16.1 mg/dL (7-18) 02/10/19 11:30 Creatinine 0.8 mg/dL (0.55-1.3) 02/10/19 11:30 Est GFR (CKD-EPI)AfAm 110.19 02/10/19 11:30 Est GFR (CKD-EPI)NonAf 95.07 02/10/19 11:30 Random Glucose 74 mg/dL (74-106) 02/10/19 11:30 Calcium 8.7 mg/dL (8.5-10.1) 02/10/19 11:30 Total Bilirubin 0.5 mg/dL (0.2-1) 02/10/19 11:30 AST 45 U/L (15-37) H 02/10/19 11:30 ALT 49 U/L (13-61) 02/10/19 11:30 Alkaline Phosphatase 94 U/L (45-117) 02/10/19 11:30 Total Protein 8.1 g/dl (6.4-8.2) 02/10/19 11:30 Albumin 4.1 g/dl (3.4-5.0) 02/10/19 11:30 Urine Color Yellow 02/10/19 15:40 Urine Appearance Clear 02/10/19 15:40 Urine pH 5.5 (5.0-8.0) 02/10/19 15:40 Ur Specific [place] 1.013 (1.010-1.035) 02/10/19 15:40 Urine Protein Trace (NEGATIVE) 02/10/19 15:40 Urine Glucose (UA) Negative (NEGATIVE) 02/10/19 15:40 Urine Ketones Negative (NEGATIVE) 02/10/19 15:40 Urine Blood Negative (NEGATIVE) 02/10/19 15:40 Urine Nitrite Negative (NEGATIVE) 02/10/19 15:40 Urine Bilirubin Negative (NEGATIVE) 02/10/19 15:40 Urine Urobilinogen 0.2 mg/dL (0.2-1.0) 02/10/19 15:40 Ur Leukocyte Esterase Negative (NEGATIVE) 02/10/19 15:40 RPR Titer Nonreactive (NONREACTIVE) 02/10/19 11:30 Assessment: 02/11/19 10:59 withdrawal symptom Plan: continue detox ,ativan regimen
[2019-02-11] MEDS: THIAMINE HCL 100 MG TABLET (FP) PO SCH (22:39)
[2019-02-12] MEDS: LORazepam 1 MG TABLET PO SCH ×3 (06:28→17:22)
[2019-02-12] MEDS: PRENATAL VITAMINS W/ FOLIC ACID TABLET (FP) PO SCH (10:30)
--- NOTE | 2019-02-12 11:00 | PN ---
S CIWA - CIWA Score Nausea/Vomitin Muscle Tremors: 2 Anxiety: 2 Agitation: 2 Paroxysmal Sweats: No Perspiration Orientation: 0-Oriented Tacttile Disturbances: 1-Very Mild Itch/Numbness Auditory Disturbances: 1-Very Mild Visual Disturbances: 0-None Headache: 1-Very Mild CIWA-Ar Total Score: 11 S Progress Note (SOAP) Subjective: alert,irritable,anxious,interrupted sleep,pain in the body Objective: 02/12/19 10:57 Vital Signs Temperature 98.3 F 02/12/19 09:46 Pulse Rate 100 H 02/12/19 09:46 Respiratory Rate 18 02/12/19 09:46 Blood Pressure 146/81 02/12/19 09:46 O2 Sat by Pulse Oximetry (%) 02/12/19 10:57 Laboratory Last Values WBC 3.1 K/mm3 (4.0-10.0) L 02/10/19 11:30 RBC 4.74 M/mm3 (4.00-5.60) 02/10/19 11:30 Hgb 12.7 GM/dL (11.7-16.9) 02/10/19 11:30 Hct 39.1 % (35.4-49) 02/10/19 11:30 MCV 82.5 fl (80-96) 02/10/19 11:30 MCH 26.8 pg (25.7-33.7) 02/10/19 11:30 MCHC 32.5 g/dl (32.0-35.9) 02/10/19 11:30 RDW 17.3 % (11.9-15.9) H 02/10/19 11:30 Plt Count 217 K/MM3 (134-434) 02/10/19 11:30 MPV 8.8 fl (7.5-11.1) 02/10/19 11:30 Sodium 139 mmol/L (136-145) 02/10/19 11:30 Potassium 4.1 mmol/L (3.5-5.1) 02/10/19 11:30 Chloride 106 mmol/L (98-107) 02/10/19 11:30 Carbon Dioxide 25 mmol/L (21-32) 02/10/19 11:30 Anion Gap 9 MMOL/L (8-16) 02/10/19 11:30 BUN 16.1 mg/dL (7-18) 02/10/19 11:30 Creatinine 0.8 mg/dL (0.55-1.3) 02/10/19 11:30 Est GFR (CKD-EPI)AfAm 110.19 02/10/19 11:30 Est GFR (CKD-EPI)NonAf 95.07 02/10/19 11:30 Random Glucose 74 mg/dL (74-106) 02/10/19 11:30 Calcium 8.7 mg/dL (8.5-10.1) 02/10/19 11:30 Total Bilirubin 0.5 mg/dL (0.2-1) 02/10/19 11:30 AST 45 U/L (15-37) H 02/10/19 11:30 ALT 49 U/L (13-61) 02/10/19 11:30 Alkaline Phosphatase 94 U/L (45-117) 02/10/19 11:30 Total Protein 8.1 g/dl (6.4-8.2) 02/10/19 11:30 Albumin 4.1 g/dl (3.4-5.0) 02/10/19 11:30 Urine Color Yellow 02/10/19 15:40 Urine Appearance Clear 02/10/19 15:40 Urine pH 5.5 (5.0-8.0) 02/10/19 15:40 Ur Specific [place] 1.013 (1.010-1.035) 02/10/19 15:40 Urine Protein Trace (NEGATIVE) 02/10/19 15:40 Urine Glucose (UA) Negative (NEGATIVE) 02/10/19 15:40 Urine Ketones Negative (NEGATIVE) 02/10/19 15:40 Urine Blood Negative (NEGATIVE) 02/10/19 15:40 Urine Nitrite Negative (NEGATIVE) 02/10/19 15:40 Urine Bilirubin Negative (NEGATIVE) 02/10/19 15:40 Urine Urobilinogen 0.2 mg/dL (0.2-1.0) 02/10/19 15:40 Ur Leukocyte Esterase Negative (NEGATIVE) 02/10/19 15:40 RPR Titer Nonreactive (NONREACTIVE) 02/10/19 11:30 TB (QFT) Incubation (.) 02/10/19 11:30 TB Test (QFT) Nil 0.21 IU/mL (.) 02/10/19 11:30 TB Test (QFT) Mitogen >10.00 IU/mL (.) 02/10/19 11:30 TB Test (QFT) Antigen 3.46 IU/mL (.) 02/10/19 11:30 TB Test (QFT) Positive (Negative) H 02/10/19 11:30 TB Positive Criteria (.) 02/10/19 11:30 Assessment: 02/12/19 10:57 withdrawal symptom Plan: withdrawal symptom with librium,positive quantiferon test,chest x ray today
[2019-02-12] MEDS: THIAMINE HCL 100 MG TABLET (FP) PO SCH (22:48)
[2019-02-13] MEDS ORDERED: LORazepam 0.5 MG TABLET PO PRN
[2019-02-13] MEDS: LORazepam 1 MG TABLET PO SCH (00:08)
[2019-02-13] MEDS: LORazepam 0.5 MG TABLET PO SCH ×2 (06:15→10:12)
[2019-02-13] MEDS: PRENATAL VITAMINS W/ FOLIC ACID TABLET (FP) PO SCH (10:12)
--- NOTE | 2019-02-13 10:59 | PN ---
S CIWA - CIWA Score Nausea/Vomitin-No Nausea/No Vomiting Muscle Tremors: 2 Anxiety: 2 Agitation: 0-Normal Activity Paroxysmal Sweats: 3 Orientation: 0-Oriented Tacttile Disturbances: 0-None Auditory Disturbances: 0-None Visual Disturbances: 0-None Headache: 2-Mild CIWA-Ar Total Score: 9 [facility] Progress Note (SOAP) Subjective: c/o sweats, headache, and anxiety. Objective: 02/13/19 10:59 Vital Signs 02/13/19 02/13/19 02/13/19 03:30 06:00 09:17 Temperature 97.5 F L 97.9 F Pulse Rate 57 L 70 Respiratory 18 18 20 Rate Blood Pressure 144/92 151/78 Lab Results WBC 3.1 K/mm3 (4.0-10.0) L 02/10/19 11:30 RBC 4.74 M/mm3 (4.00-5.60) 02/10/19 11:30 Hgb 12.7 GM/dL (11.7-16.9) 02/10/19 11:30 Hct 39.1 % (35.4-49) 02/10/19 11:30 MCV 82.5 fl (80-96) 02/10/19 11:30 MCHC 32.5 g/dl (32.0-35.9) 02/10/19 11:30 RDW 17.3 % (11.9-15.9) H 02/10/19 11:30 Plt Count 217 K/MM3 (134-434) 02/10/19 11:30 Sodium 139 mmol/L (136-145) 02/10/19 11:30 Potassium 4.1 mmol/L (3.5-5.1) 02/10/19 11:30 Chloride 106 mmol/L (98-107) 02/10/19 11:30 Carbon Dioxide 25 mmol/L (21-32) 02/10/19 11:30 Anion Gap 9 MMOL/L (8-16) 02/10/19 11:30 BUN 16.1 mg/dL (7-18) 02/10/19 11:30 Creatinine 0.8 mg/dL (0.55-1.3) 02/10/19 11:30 Random Glucose 74 mg/dL (74-106) 02/10/19 11:30 Calcium 8.7 mg/dL (8.5-10.1) 02/10/19 11:30 Labs noted. Assessment: 02/13/19 10:59 AOX3, in no acute respiratory distress. Full ROM, ambulating in the unit. withdrawal symptoms. Plan: continue detox.
[2019-02-14] MEDS: LORazepam 0.5 MG TABLET PO SCH (01:10)
[2019-02-14] MEDS: THIAMINE HCL 100 MG TABLET (FP) PO SCH (01:10)
[2019-02-14] MEDS ORDERED: LORazepam 0.5 MG TABLET PO ONE (05:00)
[2019-02-14] MEDS: PRENATAL VITAMINS W/ FOLIC ACID TABLET (FP) PO SCH (09:56)
[2019-02-14 10:10] VITALS: BP 145/89; PULSE 65; TEMP 97.7
--- NOTE | 2019-02-14 18:34 | DS ---
[facility] Detox Discharge Summary Admission Date: 02/10/19 Discharge Date: 02/14/19 - History Present History: Alcohol Dependence, Cannabis Dependence Additional Comments: Patient requested to be discharged today. Patient completed detox and discharged safely. Instructed to follow up with PCP within 1-2 weeks. Pertinent Past History: Alcohol dependence Cannabis dependence Nicotine dependence HTN HLD - Physical Exam Results Vital Signs: Vital Signs Temperature 97.7 F 02/14/19 10:09 Pulse Rate 65 02/14/19 10:09 Respiratory Rate 18 02/14/19 10:09 Blood Pressure 145/89 02/14/19 10:09 O2 Sat by Pulse Oximetry (%) Pertinent Admission Physical Exam Findings: Withdrawal symptoms Laboratory Tests 02/10/19 02/10/19 02/10/19 11:30 11:30 11:30 WBC 3.1 L RBC 4.74 Hgb 12.7 Hct 39.1 MCV 82.5 MCH 26.8 MCHC 32.5 RDW 17.3 H Plt Count 217 MPV 8.8 Sodium 139 Potassium 4.1 Chloride 106 Carbon Dioxide 25 Anion Gap 9 BUN 16.1 Creatinine 0.8 Est GFR (CKD-EPI)AfAm 110.19 Est GFR (CKD-EPI)NonAf 95.07 Random Glucose 74 Calcium 8.7 Total Bilirubin 0.5 AST 45 H ALT 49 Alkaline Phosphatase 94 Total Protein 8.1 Albumin 4.1 Urine Color Urine Appearance Urine pH Ur Specific [place] Urine Protein Urine Glucose (UA) Urine Ketones Urine Blood Urine Nitrite Urine Bilirubin Urine Urobilinogen Ur Leukocyte Esterase RPR Titer TB (QFT) Incubation TB Test (QFT) Nil 0.21 TB Test (QFT) Mitogen >10.00 TB Test (QFT) Antigen 3.46 TB Test (QFT) Positive H TB Positive Criteria 02/10/19 02/10/19 11:30 15:40 WBC RBC Hgb Hct MCV MCH MCHC RDW Plt Count MPV Sodium Potassium Chloride Carbon Dioxide Anion Gap BUN Creatinine Est GFR (CKD-EPI)AfAm Est GFR (CKD-EPI)NonAf Random Glucose Calcium Total Bilirubin AST ALT Alkaline Phosphatase Total Protein Albumin Urine Color Yellow Urine Appearance Clear Urine pH 5.5 Ur Specific [place] 1.013 Urine Protein Trace Urine Glucose (UA) Negative Urine Ketones Negative Urine Blood Negative Urine Nitrite Negative Urine Bilirubin Negative Urine Urobilinogen 0.2 Ur Leukocyte Esterase Negative RPR Titer Nonreactive TB (QFT) Incubation TB Test (QFT) Nil TB Test (QFT) Mitogen TB Test (QFT) Antigen TB Test (QFT) TB Positive Criteria Labs reviewed: QFN +, chest xray negative - Treatment Hospital Course: Detox Protocol Followed, Detoxed Safely, Responded well, Discharged Condition Good - Medication Discharge Medications: Ambulatory Orders NK [No Known Home Medication] 01/27/19 - Diagnosis (1) HLD (hyperlipidemia) Status: Chronic (2) Alcohol dependence with uncomplicated withdrawal Status: Acute (3) Cannabis dependence, uncomplicated Status: Chronic (4) Hypertension Status: Chronic Qualifiers: Hypertension type: essential hypertension Qualified Code(s): I10 - Essential (primary) hypertension (5) Nicotine dependence Status: Chronic Qualifiers: Nicotine product type: cigarettes Substance use status: uncomplicated Qualified Code(s): F17.210 - Nicotine dependence, cigarettes, uncomplicated - AMA Did Patient Leave Against Medical Advice: No (F/U with PCP within 1-2 weeks)
== END 2019-02-14 10:32 | disposition home or self-care (01) | DRG 775 ==
LOC: YASAS 08:33 → Y6N 11:53
PROVIDERS: ADMIT Surgery; ATTEND Surgery
PROC: HZ2ZZZZ Detoxification Services for Substance Abuse Treatment (ICD-10-PCS; principal; 2019-02-10)
DX: F10.230 Alcohol dependence with withdrawal, uncomplicated (principal); F12.20 Cannabis dependence, uncomplicated; F17.210 Nicotine dependence, cigarettes, uncomplicated; I10 Essential (primary) hypertension; E78.5 Hyperlipidemia, unspecified
CPT/HCPCS: 36415; 71045-TC-FY; 80053; 81003; 85027; 86480; 86593

== ENCOUNTER 2019-03-18 15:08 | Inpatient (IN) | payer OTHER ==
[2019-03-18 16:46] VITALS: BMI 24.8
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
[2019-03-18] MEDS ORDERED: chlordiazePOXIDE HCL 10 MG CAPSULE PO PRN (18:57)
[2019-03-18] MEDS ORDERED: guaiFENesin 200 MG/10 ML 10 ML UNIT-DOSE CUPS PO PRN (18:57)
[2019-03-18] MEDS ORDERED: ACETAMINOPHEN 325 MG TABLET (FP) PO PRN (18:57)
[2019-03-18] MEDS ORDERED: MAG HYDROX/AL HYDROX/SIMETH 30 ML UNIT-DOSE CUP PO PRN (18:57)
[2019-03-18] MEDS ORDERED: LOPERAMIDE HCL 2 MG CAPSULE PO PRN (18:57)
[2019-03-18] MEDS ORDERED: MENTHOL/PHENOL 1 EACH UD MM PRN (18:57)
[2019-03-18] MEDS ORDERED: MAGNESIUM CITRATE 300 ML BOTTLE PO PRN (18:57)
[2019-03-18] MEDS ORDERED: IBUPROFEN 400 MG TABLET (FP) PO PRN (18:57)
[2019-03-18] MEDS ORDERED: P-EPHED 60MG/TRIPROLIDI 2.5MG TABLET PO PRN (18:57)
[2019-03-18] MEDS ORDERED: hydrOXYzine PAMOATE 25 MG CAPSULE (FP) PO PRN (18:57)
[2019-03-18] MEDS ORDERED: MAGNESIUM HYDROX 2400MG/30ML ORAL SUSPENSION 30 ML CUP PO PRN (18:57)
[2019-03-18] MEDS ORDERED: MELATONIN 5 MG TABLETS PO PRN (22:00)
[2019-03-18] MEDS: chlordiazePOXIDE HCL 25 MG CAPSULE PO SCH (22:33)
[2019-03-18] MEDS: THIAMINE HCL 100 MG TABLET (FP) PO SCH (22:33)
[2019-03-19] MEDS: chlordiazePOXIDE HCL 25 MG CAPSULE PO SCH ×3 (06:11→22:16)
[2019-03-19] MEDS: PRENATAL VITAMINS W/ FOLIC ACID TABLET (FP) PO SCH (10:20)
[2019-03-19 10:54] LABS: HEMATOCRIT 42.9 % (35.4-49); HEMOGLOBIN 14.2 GM/dL (11.7-16.9); MCH 27.3 pg (25.7-33.7); MEAN CELL VOLUME 82.5 fl (80-96); MEAN PLT VOLUME 9.2 fl (7.5-11.1); PLATELET COUNT 222 K/MM3 (134-434); RDW 16.9 % (11.9-15.9); WHITE BLOOD COUNT 3.2 K/mm3 (4.0-10.0)
[2019-03-19 11:58] LABS: BILIRUBIN,TOTAL 0.3 mg/dL (0.2-1); CALCIUM 9.1 mg/dL (8.5-10.1); CREATININE 1.1 mg/dL (0.55-1.3); POTASSIUM 4.6 mmol/L (3.5-5.1)
--- NOTE | 2019-03-19 12:45 | PN ---
[facility] CIWA - CIWA Score Nausea/Vomitin-No Nausea/No Vomiting Muscle Tremors: 2 Anxiety: 3 Agitation: 0-Normal Activity Paroxysmal Sweats: 3 Orientation: 0-Oriented Tacttile Disturbances: 1-Very Mild Itch/Numbness Auditory Disturbances: 0-None Visual Disturbances: 0-None Headache: 2-Mild CIWA-Ar Total Score: 11 S Progress Note (SOAP) Subjective: c/o sweats, anxiety, headache, and interrupted sleep. Objective: 03/19/19 12:44 Vital Signs 03/19/19 03/19/19 06:00 10:01 Temperature 97.5 F L 98.4 F Pulse Rate 58 L 79 Respiratory 18 18 Rate Blood Pressure 126/74 125/83 Lab Results WBC 3.2 K/mm3 (4.0-10.0) L 03/19/19 07:30 RBC 5.20 M/mm3 (4.00-5.60) 03/19/19 07:30 Hgb 14.2 GM/dL (11.7-16.9) 03/19/19 07:30 Hct 42.9 % (35.4-49) 03/19/19 07:30 MCV 82.5 fl (80-96) 03/19/19 07:30 MCHC 33.0 g/dl (32.0-35.9) 03/19/19 07:30 RDW 16.9 % (11.9-15.9) H 03/19/19 07:30 Plt Count 222 K/MM3 (134-434) 03/19/19 07:30 Sodium 140 mmol/L (136-145) 03/19/19 07:30 Potassium 4.6 mmol/L (3.5-5.1) 03/19/19 07:30 Chloride 108 mmol/L (98-107) H 03/19/19 07:30 Carbon Dioxide 23 mmol/L (21-32) 03/19/19 07:30 Anion Gap 8 MMOL/L (8-16) 03/19/19 07:30 BUN 23.0 mg/dL (7-18) H 03/19/19 07:30 Creatinine 1.1 mg/dL (0.55-1.3) 03/19/19 07:30 Random Glucose 128 mg/dL (74-106) H 03/19/19 07:30 Calcium 9.1 mg/dL (8.5-10.1) 03/19/19 07:30 Labs noted. Assessment: 03/19/19 12:45 AOX3, in no acute respiratory distress. Full ROM, ambulating in the unit. Withdrawal symptoms. Plan: continue detox.
[2019-03-19] MEDS: THIAMINE HCL 100 MG TABLET (FP) PO SCH (22:16)
[2019-03-20] MEDS: chlordiazePOXIDE 5 MG CAPSULE PO SCH ×3 (06:23→22:58)
[2019-03-20] MEDS: PRENATAL VITAMINS W/ FOLIC ACID TABLET (FP) PO SCH (10:53)
--- NOTE | 2019-03-20 12:47 | PN ---
S CIWA - CIWA Score Nausea/Vomitin-No Nausea/No Vomiting Muscle Tremors: None Anxiety: 3 Agitation: 0-Normal Activity Paroxysmal Sweats: 3 Orientation: 0-Oriented Tacttile Disturbances: 0-None Auditory Disturbances: 0-None Visual Disturbances: 0-None Headache: 2-Mild CIWA-Ar Total Score: 8 S Progress Note (SOAP) Subjective: c/o anxiety, headache, and sweats. Objective: 03/20/19 12:48 Vital Signs 03/20/19 03/20/19 07:57 09:53 Temperature 97.7 F 97.5 F L Pulse Rate 66 54 L Respiratory 18 16 Rate Blood Pressure 123/87 136/87 Lab Results WBC 3.2 K/mm3 (4.0-10.0) L 03/19/19 07:30 RBC 5.20 M/mm3 (4.00-5.60) 03/19/19 07:30 Hgb 14.2 GM/dL (11.7-16.9) 03/19/19 07:30 Hct 42.9 % (35.4-49) 03/19/19 07:30 MCV 82.5 fl (80-96) 03/19/19 07:30 MCHC 33.0 g/dl (32.0-35.9) 03/19/19 07:30 RDW 16.9 % (11.9-15.9) H 03/19/19 07:30 Plt Count 222 K/MM3 (134-434) 03/19/19 07:30 Sodium 140 mmol/L (136-145) 03/19/19 07:30 Potassium 4.6 mmol/L (3.5-5.1) 03/19/19 07:30 Chloride 108 mmol/L (98-107) H 03/19/19 07:30 Carbon Dioxide 23 mmol/L (21-32) 03/19/19 07:30 Anion Gap 8 MMOL/L (8-16) 03/19/19 07:30 BUN 23.0 mg/dL (7-18) H 03/19/19 07:30 Creatinine 1.1 mg/dL (0.55-1.3) 03/19/19 07:30 Random Glucose 128 mg/dL (74-106) H 03/19/19 07:30 Calcium 9.1 mg/dL (8.5-10.1) 03/19/19 07:30 Labs noted. Assessment: 03/20/19 12:48 AOX3, in no acute distress. Full ROM, ambulating in the unit. Withdrawal symptoms. Plan: continue detox.
[2019-03-20 21:14] VITALS: BP 118/72; PULSE 64; TEMP 97.9
[2019-03-20] MEDS: THIAMINE HCL 100 MG TABLET (FP) PO SCH (22:58)
[2019-03-21] MEDS ORDERED: chlordiazePOXIDE HCL 10 MG CAPSULE PO PRN
[2019-03-21] MEDS ORDERED: chlordiazePOXIDE HCL 10 MG CAPSULE PO SCH (05:00)
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
[2019-03-22] MEDS ORDERED: chlordiazePOXIDE HCL 10 MG CAPSULE PO ONE (05:00)
== END 2019-03-21 04:53 | disposition home or self-care (01) | DRG 774 ==
LOC: YASAS 15:08 → Y6N 19:08
PROVIDERS: ADMIT Surgery; ATTEND Surgery
PROC: HZ2ZZZZ Detoxification Services for Substance Abuse Treatment (ICD-10-PCS; principal; 2019-03-18)
DX: F10.230 Alcohol dependence with withdrawal, uncomplicated (principal); F13.20 Sedative, hypnotic or anxiolytic dependence, uncomplicated; F14.20 Cocaine dependence, uncomplicated; F12.20 Cannabis dependence, uncomplicated; F17.210 Nicotine dependence, cigarettes, uncomplicated; F34.1 Dysthymic disorder; R73.9 Hyperglycemia, unspecified; J45.20 Mild intermittent asthma, uncomplicated; M25.551 Pain in right hip; M25.552 Pain in left hip; G89.29 Other chronic pain
CPT/HCPCS: 36415; 80053; 85027; 86593

== ENCOUNTER 2019-06-21 16:46 | Inpatient (IN) | payer OTHER ==
[2019-06-21 17:56] VITALS: BMI 22.9
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
[2019-06-21] MEDS ORDERED: LOPERAMIDE HCL 2 MG CAPSULE PO PRN (18:16)
[2019-06-21] MEDS ORDERED: P-EPHED 60MG/TRIPROLIDI 2.5MG TABLET PO PRN (18:16)
[2019-06-21] MEDS ORDERED: guaiFENesin 200 MG/10 ML 10 ML UNIT-DOSE CUPS PO PRN (18:16)
[2019-06-21] MEDS ORDERED: ACETAMINOPHEN 325 MG TABLET (FP) PO PRN (18:16)
[2019-06-21] MEDS ORDERED: MAG HYDROX/AL HYDROX/SIMETH 30 ML UNIT-DOSE CUP PO PRN (18:16)
[2019-06-21] MEDS ORDERED: MAGNESIUM HYDROX 2400MG/30ML ORAL SUSPENSION 30 ML CUP PO PRN (18:16)
[2019-06-21] MEDS ORDERED: MAGNESIUM CITRATE 300 ML BOTTLE PO PRN (18:16)
[2019-06-21] MEDS ORDERED: IBUPROFEN 400 MG TABLET (FP) PO PRN (18:16)
[2019-06-21] MEDS ORDERED: MENTHOL/PHENOL 1 EACH UD MM PRN (18:16)
[2019-06-21] MEDS ORDERED: MELATONIN 5 MG TABLETS PO PRN (22:00)
[2019-06-21] MEDS: THIAMINE HCL 100 MG TABLET (FP) PO SCH (22:28)
[2019-06-22 09:50] LABS: HEMATOCRIT 43.4 % (35.4-49); HEMOGLOBIN 14.1 GM/dL (11.7-16.9); MCH 26.8 pg (25.7-33.7); MCHC 32.5 g/dl (32.0-35.9); MEAN CELL VOLUME 82.5 fl (80-96); MEAN PLT VOLUME 9.4 fl (7.5-11.1); PLATELET COUNT 213 K/MM3 (134-434); RBC 5.27 M/mm3 (4.00-5.60); RDW 17.5 % (11.9-15.9); WHITE BLOOD COUNT 3.9 K/mm3 (4.0-10.0)
[2019-06-22 10:15] LABS: URINE APPEARANCE CLEAR; URINE BILIRUBIN NEGATIVE (NEGATIVE); URINE COLOR YELLOW; URINE GLUCOSE (UA) NEGATIVE (NEGATIVE); URINE KETONE NEGATIVE (NEGATIVE); URINE LEUK ESTERASE NEGATIVE (NEGATIVE); URINE NITRITE NEGATIVE (NEGATIVE); URINE PROTEIN NEGATIVE (NEGATIVE)
[2019-06-22 10:20] LABS: ALBUMIN 3.9 g/dl (3.4-5.0); BILIRUBIN,TOTAL 0.4 mg/dL (0.2-1); BLOOD UREA NITROGEN 14.3 mg/dL (7-18); CALCIUM 9.2 mg/dL (8.5-10.1); CREATININE 0.8 mg/dL (0.55-1.3); POTASSIUM 4.3 mmol/L (3.5-5.1); TOT PROT 7.6 g/dl (6.4-8.2)
[2019-06-22] MEDS: PRENATAL VITAMINS W/ FOLIC ACID TABLET (FP) PO SCH (10:29)
[2019-06-22] MEDS: THIAMINE HCL 100 MG TABLET (FP) PO SCH (21:46)
[2019-06-23] MEDS: PRENATAL VITAMINS W/ FOLIC ACID TABLET (FP) PO SCH (10:58)
[2019-06-23] MEDS: THIAMINE HCL 100 MG TABLET (FP) PO SCH (23:08)
[2019-06-24 07:03] VITALS: BP 142/77; PULSE 56; TEMP 97.7
[2019-06-24] MEDS: PRENATAL VITAMINS W/ FOLIC ACID TABLET (FP) PO SCH (10:11)
--- NOTE | 2019-06-24 18:42 | DS ---
[facility] Rehab Discharge Summary - [facility] Rehab Discharge Summary Admission Date: 06/21/19 Discharge Date: 06/24/19 - History Present History: Alcohol dependence, Cocaine dependence Additional Comments: Patient left AMA ,denies SI/HI, risk of interrupting treatment advised, patient to follow up with primary care provider, if worsening symptoms are present patient to seek medical attention. - Discharge Physical Exam Vital Signs: Vital Signs Temperature 97.7 F 06/24/19 07:02 Pulse Rate 56 L 06/24/19 07:02 Respiratory Rate 18 06/24/19 07:02 Blood Pressure 142/77 06/24/19 07:02 O2 Sat by Pulse Oximetry (%) Pertinent Admission Physical Exam Findings: Patient AOx3 no distress no adventitious breath sounds No edema or erythema full ROM, no gait disturbance - Treatment Discharge Condition: Discharge condition good - Medication Discharge Medications: Ambulatory Orders NK [No Known Home Medication] 01/27/19 - Medication-Assisted Treatment (MAT) Medication-Assisted Treatment (MAT): No MAT Follow-up Referral: Follow up with outpatient - Discharge Instructions Diet, activity, other medical instructions: Diet: Activity: Other medical instructions: - Diagnosis (1) Alcohol dependence Current Visit: Yes Status: Chronic Qualifiers: Substance use status: in remission Qualified Code(s): F10.21 - Alcohol dependence, in remission (2) Asthma Current Visit: Yes Status: Chronic Qualifiers: Asthma severity: mild Asthma persistence: intermittent (3) Cannabis dependence, uncomplicated Current Visit: No Status: Chronic (4) Cocaine dependence Current Visit: Yes Status: Chronic Qualifiers: Substance use status: with other cocaine-induced disorder Qualified Code(s) : F14.288 - Cocaine dependence with other cocaine-induced disorder; F14.28 - Cocaine dependence with other cocaine-induced disorder (5) Hypertension Current Visit: No Status: Chronic Qualifiers: Hypertension type: essential hypertension Qualified Code(s): I10 - Essential (primary) hypertension (6) Nicotine dependence Current Visit: Yes Status: Chronic Qualifiers: Nicotine product type: cigarettes Substance use status: uncomplicated Qualified Code(s): F17.210 - Nicotine dependence, cigarettes, uncomplicated - AMA Did Patient Leave Against Medical Advice: Yes
== END 2019-06-24 18:50 | disposition left against medical advice (07) | DRG 770 ==
LOC: YASAS 16:46 → UNDOADMIN 18:50 → Y3W 18:50
PROVIDERS: ADMIT Neuromusculoskeletal Medicine & OMM; ATTEND Neuromusculoskeletal Medicine & OMM
PROC: HZ2ZZZZ Detoxification Services for Substance Abuse Treatment (ICD-10-PCS; principal; 2019-06-21)
DX: F10.20 Alcohol dependence, uncomplicated (principal); F14.20 Cocaine dependence, uncomplicated; F12.20 Cannabis dependence, uncomplicated; F17.210 Nicotine dependence, cigarettes, uncomplicated; I10 Essential (primary) hypertension; J45.20 Mild intermittent asthma, uncomplicated
CPT/HCPCS: 36415; 80053; 81003; 85027; 86593

== ENCOUNTER 2019-09-11 13:20 | Inpatient (IN) | payer OTHER ==
[2019-09-11 15:28] VITALS: BMI 24.8
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
[2019-09-11] MEDS ORDERED: MAGNESIUM CITRATE 300 ML BOTTLE PO PRN (21:53)
[2019-09-11] MEDS ORDERED: ACETAMINOPHEN 325 MG TABLET (FP) PO PRN ×2 (21:53)
[2019-09-11] MEDS ORDERED: MAG HYDROX/AL HYDROX/SIMETH 30 ML UNIT-DOSE CUP PO PRN (21:53)
[2019-09-11] MEDS ORDERED: MELATONIN 5 MG TABLETS PO PRN (21:53)
[2019-09-11] MEDS ORDERED: NICOTINE POLACRILEX 2 MG GUM BUC PRN (21:53)
[2019-09-11] MEDS ORDERED: IBUPROFEN 400 MG TABLET (FP) PO PRN (21:53)
[2019-09-11] MEDS ORDERED: MENTHOL/PHENOL 1 EACH UD MM PRN (21:53)
[2019-09-11] MEDS ORDERED: BISMUTH SUBSALICYLATE 524 MG/30 ML UD PO PRN (21:53)
[2019-09-11] MEDS ORDERED: MAGNESIUM HYDROX 2400MG/30ML ORAL SUSPENSION 30 ML CUP PO PRN (21:53)
[2019-09-11] MEDS: THIAMINE HCL 100 MG TABLET (FP) PO SCH (23:13)
[2019-09-12] MEDS ORDERED: chlordiazePOXIDE HCL 10 MG CAPSULE PO PRN (03:00)
[2019-09-12] MEDS: chlordiazePOXIDE HCL 25 MG CAPSULE PO SCH ×3 (05:25→23:51)
[2019-09-12 10:14] LABS: HEMATOCRIT 41.5 % (35.4-49); HEMOGLOBIN 13.4 GM/dL (11.7-16.9); MCH 26.6 pg (25.7-33.7); MCHC 32.3 g/dl (32.0-35.9); MEAN CELL VOLUME 82.4 fl (80-96); MEAN PLT VOLUME 8.7 fl (7.5-11.1); PLATELET COUNT 207 K/MM3 (134-434); RBC 5.04 M/mm3 (4.00-5.60); RDW 16.8 % (11.9-15.9); WHITE BLOOD COUNT 3.4 K/mm3 (4.0-10.0)
[2019-09-12] MEDS: PRENATAL VITAMINS W/ FOLIC ACID TABLET (FP) PO SCH (10:27)
[2019-09-12 10:53] LABS: ALBUMIN 4.2 g/dl (3.4-5.0); BILIRUBIN,TOTAL 0.7 mg/dL (0.2-1); BLOOD UREA NITROGEN 13.6 mg/dL (7-18); CALCIUM 9.2 mg/dL (8.5-10.1); CREATININE 0.9 mg/dL (0.55-1.3); POTASSIUM 4.2 mmol/L (3.5-5.1); TOT PROT 8.4 g/dl (6.4-8.2)
--- NOTE | 2019-09-12 12:32 | PN ---
S CIWA - CIWA Score Nausea/Vomitin-Mild Nausea/No Vomiting Muscle Tremors: 2 Anxiety: 2 Agitation: 2 Paroxysmal Sweats: 2 Orientation: 0-Oriented Tacttile Disturbances: 0-None Auditory Disturbances: 0-None Visual Disturbances: 0-None Headache: 0-None Present CIWA-Ar Total Score: 9 S Progress Note (SOAP) Subjective: Tremor, diarrhea, agitation Objective: 09/12/19 12:30 Last Vital Signs Temp Pulse Resp BP Pulse Ox 98.2 F 73 18 122/78 09/12/19 08:49 09/12/19 08:49 09/12/19 08:49 09/12/19 08:49 Laboratory Tests 09/12/19 09/12/19 07:20 07:20 WBC 3.4 L RBC 5.04 Hgb 13.4 Hct 41.5 MCV 82.4 MCH 26.6 MCHC 32.3 RDW 16.8 H Plt Count 207 MPV 8.7 Sodium 140 Potassium 4.2 Chloride 106 Carbon Dioxide 30 Anion Gap 5 L BUN 13.6 Creatinine 0.9 Est GFR (CKD-EPI)AfAm 104.98 Est GFR (CKD-EPI)NonAf 90.58 Random Glucose 86 Calcium 9.2 Total Bilirubin 0.7 AST 38 H ALT 33 Alkaline Phosphatase 99 Total Protein 8.4 H Albumin 4.2 Labs reviewed Assessment: 09/12/19 12:31 Withdrawal sxs Plan: Continue detox Encouraged PO water intake
[2019-09-12] MEDS: THIAMINE HCL 100 MG TABLET (FP) PO SCH (23:52)
[2019-09-13] MEDS: chlordiazePOXIDE 5 MG CAPSULE PO SCH ×3 (06:21→22:30)
[2019-09-13] MEDS ORDERED: chlordiazePOXIDE HCL 10 MG CAPSULE PO PRN (09:00)
--- NOTE | 2019-09-13 09:48 | EKG ---
Test Reason : Blood Pressure : / mmHG Vent. Rate : 054 BPM Atrial Rate : 054 BPM P-R Int : 144 ms QRS Dur : 082 ms QT Int : 440 ms P-R-T Axes : 075 034 034 degrees QTc Int : 417 ms SINUS BRADYCARDIA WITH SINUS ARRHYTHMIA T WAVE ABNORMALITY, CONSIDER LATERAL ISCHEMIA ABNORMAL ECG WHEN COMPARED WITH ECG OF 24-JUN-2018 11:20, NO SIGNIFICANT CHANGE WAS FOUND Confirmed by Kirk Guillen ([id number]) on 09/13/2019 9:48:01 AM Referred By: Confirmed By:Kirk Guillen
[2019-09-13] MEDS: PRENATAL VITAMINS W/ FOLIC ACID TABLET (FP) PO SCH (10:39)
--- NOTE | 2019-09-13 10:54 | PN ---
S CIWA - CIWA Score Nausea/Vomitin-Mild Nausea/No Vomiting Muscle Tremors: 2 Anxiety: 2 Agitation: 2 Paroxysmal Sweats: No Perspiration Orientation: 0-Oriented Tacttile Disturbances: 1-Very Mild Itch/Numbness Auditory Disturbances: 0-None Visual Disturbances: 0-None Headache: 2-Mild CIWA-Ar Total Score: 10 BHS Progress Note (SOAP) Subjective: alert,irritable,anxious,interrupted sleep,tremor Objective: 09/13/19 10:53 Vital Signs Temperature 97.9 F 09/13/19 08:57 Pulse Rate 60 09/13/19 08:57 Respiratory Rate 18 09/13/19 08:57 Blood Pressure 132/75 09/13/19 08:57 O2 Sat by Pulse Oximetry (%) Assessment: 09/13/19 10:53 withdrawal symptom Plan: continue detox librium regimen
[2019-09-13] MEDS: THIAMINE HCL 100 MG TABLET (FP) PO SCH (22:30)
[2019-09-14] MEDS ORDERED: chlordiazePOXIDE HCL 10 MG CAPSULE PO SCH (05:00)
[2019-09-14 09:24] VITALS: BP 148/92; PULSE 62; TEMP 97.9
--- NOTE | 2019-09-14 10:29 | PN ---
[facility] CIWA - CIWA Score Nausea/Vomitin-Mild Nausea/No Vomiting Muscle Tremors: 1-None Visible, but [place] Anxiety: 2 Agitation: 2 Paroxysmal Sweats: No Perspiration Orientation: 0-Oriented Tacttile Disturbances: 1-Very Mild Itch/Numbness Auditory Disturbances: 0-None Visual Disturbances: 0-None Headache: 1-Very Mild CIWA-Ar Total Score: 8 BHS Progress Note (SOAP) Subjective: alert,irritable,anxious,interrupted sleep Objective: 09/14/19 10:27 Vital Signs Temperature 97.9 F 09/14/19 08:31 Pulse Rate 62 09/14/19 08:31 Respiratory Rate 17 09/14/19 08:31 Blood Pressure 148/92 09/14/19 08:31 O2 Sat by Pulse Oximetry (%) Assessment: 09/14/19 10:28 withdrawal symptom Plan: continue detox librium regimen,discharge in am
[2019-09-14] MEDS: PRENATAL VITAMINS W/ FOLIC ACID TABLET (FP) PO SCH (11:00)
--- NOTE | 2019-09-14 11:14 | PN ---
S Progress Note Note: alert,no complaint,stable for discharge today for further level of care in rehab
--- NOTE | 2019-09-14 11:18 | DS ---
[facility] Detox Discharge Summary Admission Date: 09/11/19 Discharge Date: 09/14/19 - History Present History: Alcohol Dependence, Sedative Dependence Additional Comments: alert,oriented x 3 ambulation on the unit heart normal heart sound lung clear bilaterally no abdominal pain stable for discharge ,discharge time 30 minutes to rehab as protocol Pertinent Past History: positive ppd - Physical Exam Results Vital Signs: Vital Signs Temperature 97.9 F 09/14/19 08:31 Pulse Rate 62 09/14/19 08:31 Respiratory Rate 17 09/14/19 08:31 Blood Pressure 148/92 09/14/19 08:31 O2 Sat by Pulse Oximetry (%) Pertinent Admission Physical Exam Findings: withdrawal symptom Vital Signs Temperature 97.9 F 09/14/19 08:31 Pulse Rate 62 09/14/19 08:31 Respiratory Rate 17 09/14/19 08:31 Blood Pressure 148/92 09/14/19 08:31 O2 Sat by Pulse Oximetry (%) Laboratory Last Values WBC 3.4 K/mm3 (4.0-10.0) L 09/12/19 07:20 RBC 5.04 M/mm3 (4.00-5.60) 09/12/19 07:20 Hgb 13.4 GM/dL (11.7-16.9) 09/12/19 07:20 Hct 41.5 % (35.4-49) 09/12/19 07:20 MCV 82.4 fl (80-96) 09/12/19 07:20 MCH 26.6 pg (25.7-33.7) 09/12/19 07:20 MCHC 32.3 g/dl (32.0-35.9) 09/12/19 07:20 RDW 16.8 % (11.9-15.9) H 09/12/19 07:20 Plt Count 207 K/MM3 (134-434) 09/12/19 07:20 MPV 8.7 fl (7.5-11.1) 09/12/19 07:20 Sodium 140 mmol/L (136-145) 09/12/19 07:20 Potassium 4.2 mmol/L (3.5-5.1) 09/12/19 07:20 Chloride 106 mmol/L (98-107) 09/12/19 07:20 Carbon Dioxide 30 mmol/L (21-32) 09/12/19 07:20 Anion Gap 5 MMOL/L (8-16) L 09/12/19 07:20 BUN 13.6 mg/dL (7-18) 09/12/19 07:20 Creatinine 0.9 mg/dL (0.55-1.3) 09/12/19 07:20 Est GFR (CKD-EPI)AfAm 104.98 09/12/19 07:20 Est GFR (CKD-EPI)NonAf 90.58 09/12/19 07:20 Random Glucose 86 mg/dL (74-106) 09/12/19 07:20 Calcium 9.2 mg/dL (8.5-10.1) 09/12/19 07:20 Total Bilirubin 0.7 mg/dL (0.2-1) 09/12/19 07:20 AST 38 U/L (15-37) H 09/12/19 07:20 ALT 33 U/L (13-61) 09/12/19 07:20 Alkaline Phosphatase 99 U/L (45-117) 09/12/19 07:20 Total Protein 8.4 g/dl (6.4-8.2) H 09/12/19 07:20 Albumin 4.2 g/dl (3.4-5.0) 09/12/19 07:20 - Treatment Hospital Course: Detox Protocol Followed, Detoxed Safely, Responded well, Discharged Condition Good, Rehab Referral Accepted Patient has Accepted [facility] Ref[facility] - Medication Discharge Medications: Ambulatory Orders NK [No Known Home Medication] 01/27/19 - Diagnosis (1) Alcohol dependence with uncomplicated withdrawal Current Visit: Yes Status: Acute (2) Nicotine dependence Current Visit: Yes Status: Chronic Qualifiers: Nicotine product type: cigarettes Substance use status: uncomplicated Qualified Code(s): F17.210 - Nicotine dependence, cigarettes, uncomplicated (3) Sedative, hypnotic or anxiolytic use disorder, mild, abuse Current Visit: Yes Status: Chronic (4) History of chest tube placement Current Visit: No Status: Acute (5) History of inguinal hernia repair, bilateral Current Visit: No Status: Acute (6) Asthma Current Visit: No Status: Chronic Qualifiers: Asthma severity: mild Asthma persistence: intermittent - AMA Did Patient Leave Against Medical Advice: No
--- NOTE | 2019-09-14 11:20 | HP ---
[facility] Rehab Assess/Revision - Admission History Admitted to Rehab from: [facility] Date of Admission to Rehab: 09/14/19 - Vital signs Vital Signs: Vital Signs Period Temp Pulse Resp BP Sys/Leal Pulse Ox Last 24 Hr 96.3 F-98.2 F 60-73 16-18 128-148/73-92 - Findings Detox History & Physical reviewed: Yes Concur with findings: Yes Inpatient Rehab Admission - Rehab Decision to Admit Inpatient rehab admission?: Yes - Initial Determination Are CD services needed?: Yes Free of communicable disease: Yes Not in need of hospitalization: Yes - Rehab Admission Criteria Previous failed treatment: Yes Poor recovery environment: Yes Comorbidities: Yes Lacks judgement: No Patient is meeting Inpatient Rehab admission criteria:: Yes
[2019-09-15] MEDS ORDERED: chlordiazePOXIDE HCL 10 MG CAPSULE PO ONE (05:00)
== END 2019-09-14 12:47 | disposition other institution (70) | DRG 775 ==
LOC: YASAS 13:20 → Y6N 22:20
PROVIDERS: ADMIT Allergy & Immunology; ATTEND Allergy & Immunology
PROC: HZ2ZZZZ Detoxification Services for Substance Abuse Treatment (ICD-10-PCS; principal; 2019-09-11)
DX: F10.230 Alcohol dependence with withdrawal, uncomplicated (principal); F10.220 Alcohol dependence with intoxication, uncomplicated; F13.230 Sedative, hypnotic or anxiolytic dependence with withdrawal, uncomplicated; F17.210 Nicotine dependence, cigarettes, uncomplicated; J45.20 Mild intermittent asthma, uncomplicated; R00.1 Bradycardia, unspecified; R60.0 Localized edema; R76.11 Nonspecific reaction to tuberculin skin test without active tuberculosis; R94.31 Abnormal electrocardiogram [ECG] [EKG]
CPT/HCPCS: 36415; 80053; 85027; 93005; 93010

== ENCOUNTER 2019-09-14 12:17 | Inpatient (IN) | payer OTHER ==
[2019-09-14] MEDS ORDERED: guaiFENesin 200 MG/10 ML 10 ML UNIT-DOSE CUPS PO PRN (13:40)
[2019-09-14] MEDS ORDERED: MAG HYDROX/AL HYDROX/SIMETH 30 ML UNIT-DOSE CUP PO PRN (13:40)
[2019-09-14] MEDS ORDERED: hydrOXYzine PAMOATE 50 MG CAPSULE (FP) PO PRN (13:40)
[2019-09-14] MEDS ORDERED: IBUPROFEN 400 MG TABLET (FP) PO PRN (13:40)
[2019-09-14] MEDS ORDERED: MAGNESIUM CITRATE 300 ML BOTTLE PO PRN (13:40)
[2019-09-14] MEDS ORDERED: P-EPHED 60MG/TRIPROLIDI 2.5MG TABLET PO PRN (13:40)
[2019-09-14] MEDS ORDERED: ACETAMINOPHEN 325 MG TABLET (FP) PO PRN (13:40)
[2019-09-14] MEDS ORDERED: LOPERAMIDE HCL 2 MG CAPSULE PO PRN (13:40)
[2019-09-14] MEDS ORDERED: MENTHOL/PHENOL 1 EACH UD MM PRN (13:40)
[2019-09-14] MEDS ORDERED: NICOTINE POLACRILEX 2 MG GUM BUC PRN (13:40)
[2019-09-14] MEDS ORDERED: MAGNESIUM HYDROX 2400MG/30ML ORAL SUSPENSION 30 ML CUP PO PRN (13:40)
--- NOTE | 2019-09-14 13:43 | PN ---
S Progress Note (SOAP) Subjective: Patient admitted to [facility] from [address] [place] [address] EKG w/ bradycardia and T-wave abnormality. No significant changes from 2018. Denies h/o seizures, DT's, blackouts or overdoses. States able to stay sober for about 3 weeks after last discharge. Alcohol use began at age 21. Currently drinks 8-9 beers and 1 pint vodka/day. Marijuana use began at age 17 and stopped. Restarted use at age 58. Currently uses $30-50/day Xanax use began at age 58. Currently uses 2-2 mg sticks/day. Nicotine use began at age 12. Smokes 1-2 cig/day. 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 Denies thoughts of harming self or others. SHx: Domiciled. Retired. Denies legal issues Objective: 09/14/19 13:45 Vital Signs Period Temp Pulse Resp BP Sys/Leal Pulse Ox Last 24 Hr 98.1 F 76 18 107/71 general: no apparent distress HEENTM: PERRLA, normocephalic Neck: supple, Lungs: clear Heart: s1 s2 ABD: +BS MSK: full weight bearing, full ROM, steady gait Assessment: substance use disorder 09/14/19 13:46 Plan: continue rehab treatment for substance use Maintain safety medications ordered.
--- NOTE | 2019-09-14 13:48 | HP ---
[facility] Rehab Assess/Revision - Admission History Admitted to Rehab from: [facility] Date of Admission to Rehab: 09/14/2019 - Vital signs Vital Signs: Vital Signs Period Temp Pulse Resp BP Sys/Leal Pulse Ox Last 24 Hr 98.1 F 76 18 107/71 - Findings Detox History & Physical reviewed: Yes Concur with findings: Yes Inpatient Rehab Admission - Rehab Decision to Admit Inpatient rehab admission?: Yes - Initial Determination Are CD services needed?: Yes Free of communicable disease: Yes Not in need of hospitalization: Yes - Rehab Admission Criteria Previous failed treatment: Yes Poor recovery environment: Yes Comorbidities: Yes Lacks judgement: Yes Patient is meeting Inpatient Rehab admission criteria:: Yes
[2019-09-14] MEDS ORDERED: THIAMINE HCL 100 MG TABLET (FP) PO SCH (22:00)
[2019-09-14] MEDS ORDERED: MELATONIN 5 MG TABLETS PO PRN (22:00)
[2019-09-15 06:58] VITALS: BP 146/91; PULSE 60; TEMP 97.8
--- NOTE | 2019-09-15 09:19 | DS ---
[facility] Rehab Discharge Summary - [facility] Rehab Discharge Summary Admission Date: 09/14/19 Discharge Date: 09/15/19 - History Present History: Alcohol dependence, Cannabis dependence, Cocaine dependence Pertinent Past History: Denies h/o seizures, DT's, blackouts or overdoses. States able to stay sober for about 3 weeks after last discharge. See ROS from 09/10/2019 Alcohol use began at age 21. Currently drinks 8-9 beers and 1 pint vodka/day. Last drink was about 2 pm about 3-24 oz beers. Marijuana use began at age 17 and stopped. Restarted use at age 58. Currently uses $30-50/day Xanax use began at age 58. Currently uses 2-2 mg sticks/day. Last used 09/11/19 Nicotine use began at age 12. Smokes 1-2 cig/day. 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 Denies thoughts of harming self or others. SHx: Domiciled. Retired. Denies legal issues - Discharge Physical Exam Vital Signs: Vital Signs Temperature 97.8 F 09/15/19 06:56 Pulse Rate 60 09/15/19 06:56 Respiratory Rate 18 09/15/19 06:56 Blood Pressure 146/91 09/15/19 06:56 O2 Sat by Pulse Oximetry (%) Pertinent Admission Physical Exam Findings: - Physical General Appearance: Angry, cursing, and demanding to leave. Nourished, HEENTM: Hearing grossly Normal, Normocephalic, Normal Voice, Respiratory: No Respiratory Distress Neck: Supple Musculoskeletal: full range of Motion, Gait Steady 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: Fully Oriented, Integumentary: Yes: Normal Color, Dry, Warm - Treatment Discharge Condition: Discharge condition good (medically stable for discharge. Patient refused a referral for aftercare.) Hospital Course: Patient was admitted to the unit yesterday, was disruptive with his roommate last night, and refused to participate in morning meeting. - Medication Discharge Medications: Ambulatory Orders NK [No Known Home Medication] 01/27/19 - Medication-Assisted Treatment (MAT) Medication-Assisted Treatment (MAT): No - Discharge Instructions Diet, activity, other medical instructions: Patient refused instructions. Diet: Activity: Other medical instructions: patient refused instructions - Diagnosis (1) Alcohol dependence with uncomplicated withdrawal Current Visit: No Status: Chronic (2) Alcohol dependence Current Visit: No Status: Chronic Qualifiers: Substance use status: in remission Qualified Code(s): F10.21 - Alcohol dependence, in remission (3) Cannabis dependence, uncomplicated Current Visit: No Status: Chronic (4) Cocaine dependence Current Visit: No Status: Chronic Qualifiers: Substance use status: with other cocaine-induced disorder Qualified Code(s) : F14.288 - Cocaine dependence with other cocaine-induced disorder; F14.28 - Cocaine dependence with other cocaine-induced disorder - Follow-up Referral Minutes to complete discharge: 10 - AMA Did Patient Leave Against Medical Advice: Yes Additional Comments: Patient refused to see counselor to obtain a discharge referral. Patient signed AMA papers. He refused to participate in the morning meeting or accept instructions of staff. He refused to participate in the discharge interview with his provider. The physical exam is based on clinical observation while encouraging patient to participate in discharge process/.
[2019-09-15] MEDS ORDERED: NICOTINE 14 MG/24 HOURS TOPICAL PATCH TD SCH (10:00)
[2019-09-15] MEDS ORDERED: PRENATAL VITAMINS W/ FOLIC ACID TABLET (FP) PO SCH (10:00)
== END 2019-09-15 09:20 | disposition left against medical advice (07) | DRG 770 ==
LOC: YASAS 12:17 → Y3W 12:18
PROVIDERS: ADMIT Allergy & Immunology; ATTEND Allergy & Immunology
PROC: HZ42ZZZ Group Counseling for Substance Abuse Treatment, Cognitive-Behavioral (ICD-10-PCS; principal; 2019-09-14)
DX: F10.20 Alcohol dependence, uncomplicated (principal); F14.20 Cocaine dependence, uncomplicated; F12.20 Cannabis dependence, uncomplicated; F17.210 Nicotine dependence, cigarettes, uncomplicated

== ENCOUNTER 2022-10-31 13:55 | Inpatient (IN) | payer OTHER ==
[2022-10-31 15:02] VITALS: BMI 22.6
[2022-10-31] MEDS ORDERED: MAG HYDROX/AL HYDROX/SIMETH 30 ML UNIT-DOSE CUP PO PRN (15:37)
[2022-10-31] MEDS ORDERED: DICYCLOMINE HCL 10 MG CAPSULE PO PRN (15:37)
[2022-10-31] MEDS ORDERED: BENZOCAINE/MENTHOL (CHLORASEPTIC ) LOZENGE MM PRN (15:37)
[2022-10-31] MEDS ORDERED: POLYETHYLENE GLYCOL (HEALTHYLAX) 3350 17 GM PACKET PO PRN (15:37)
[2022-10-31] MEDS ORDERED: NICOTINE 10 MG CARTRIDGE (INHALER) IH PRN (15:37)
[2022-10-31] MEDS ORDERED: BENZONATATE 200 MG CAPSULE PO PRN (15:37)
[2022-10-31] MEDS ORDERED: guaiFENesin 600 MG TABLET.ER (FP) PO PRN (15:37)
[2022-10-31] MEDS ORDERED: ACETAMINOPHEN 325 MG TABLET (FP) PO PRN (15:37)
[2022-10-31] MEDS ORDERED: LOPERAMIDE HCL 2 MG CAPSULE PO PRN (15:37)
[2022-10-31] MEDS ORDERED: IBUPROFEN 600 MG TABLET (FP) PO PRN (15:37)
[2022-10-31] MEDS ORDERED: IBUPROFEN 400 MG TABLET (FP) PO PRN (15:37)
[2022-10-31] MEDS ORDERED: MAGNESIUM HYDROX 2400MG/30ML ORAL SUSPENSION 30 ML CUP PO PRN (15:37)
[2022-10-31] MEDS ORDERED: LORazepam 1 MG TABLET PO PRN (15:37)
[2022-10-31] MEDS ORDERED: NICOTINE POLACRILEX 2 MG GUM BUC PRN (15:37)
[2022-10-31] MEDS ORDERED: hydrOXYzine PAMOATE 25 MG CAPSULE (FP) PO PRN (15:37)
[2022-10-31] MEDS ORDERED: NICOTINE 7 MG/24 HOURS TOPICAL PATCH TD PRN (15:37)
[2022-10-31] MEDS ORDERED: BISMUTH SUBSALICYLATE 524 MG/30 ML PO PRN (15:37)
[2022-10-31] MEDS ORDERED: METHOCARBAMOL 500 MG TABLET PO PRN (15:37)
[2022-10-31] MEDS ORDERED: ONDANSETRON *ODT* 4 MG TABLET SL PRN (15:37)
[2022-10-31] MEDS ORDERED: cloNIDine HCL 0.1 MG TABLET PO PRN (15:54)
[2022-10-31] MEDS: LORazepam 2 MG TABLET PO SCH ×2 (17:49→22:34)
[2022-10-31] MEDS: MELATONIN 5 MG TABLETS PO SCH (22:30)
[2022-10-31] MEDS: THIAMINE HCL 100 MG TABLET (FP) PO SCH (22:31)
[2022-11-01] MEDS: LORazepam 2 MG TABLET PO SCH ×4 (05:52→23:35)
[2022-11-01] MEDS: PRENATAL VITAMINS W/ FOLIC ACID TABLET (FP) PO SCH (10:56)
[2022-11-01 11:43] LABS: ALBUMIN 3.5 g/dl (3.4-5.0); BLOOD UREA NITROGEN 15.1 mg/dL (7-18); CALCIUM 8.8 mg/dL (8.5-10.1)
[2022-11-01 11:45] LABS: HEMOGLOBIN 12.7 GM/dL (11.7-16.9); MCH 28.7 pg (25.7-33.7); MCHC 33.3 g/dl (32.0-35.9); MEAN CELL VOLUME 86.1 fl (80-96); MEAN PLT VOLUME 9.2 fl (7.5-11.1); PLATELET COUNT 199 10^3/uL (134-434); RBC 4.42 M/mm3 (4.00-5.60); RDW 16.6 % (11.9-15.9); WHITE BLOOD COUNT 4.4 K/mm3 (4.0-10.0)
[2022-11-01 11:46] LABS: CREATININE 0.9 mg/dL (0.55-1.3)
[2022-11-01 11:51] LABS: BILIRUBIN,TOTAL 0.4 mg/dL (0.2-1); TOT PROT 7.1 g/dl (6.4-8.2)
[2022-11-01] MEDS: THIAMINE HCL 100 MG TABLET (FP) PO SCH (23:35)
[2022-11-01] MEDS: MELATONIN 5 MG TABLETS PO SCH (23:35)
[2022-11-02] MEDS: LORazepam 1 MG TABLET PO SCH ×4 (05:56→22:43)
[2022-11-02] MEDS: PRENATAL VITAMINS W/ FOLIC ACID TABLET (FP) PO SCH (10:11)
[2022-11-02] MEDS: MELATONIN 5 MG TABLETS PO SCH (22:43)
[2022-11-02] MEDS: THIAMINE HCL 100 MG TABLET (FP) PO SCH (22:43)
[2022-11-03] MEDS ORDERED: LORazepam 0.5 MG TABLET PO PRN
[2022-11-03] MEDS: LORazepam 0.5 MG TABLET PO SCH ×4 (05:08→22:49)
[2022-11-03] MEDS: PRENATAL VITAMINS W/ FOLIC ACID TABLET (FP) PO SCH (10:22)
[2022-11-03] MEDS: MELATONIN 5 MG TABLETS PO SCH (22:47)
[2022-11-03] MEDS: THIAMINE HCL 100 MG TABLET (FP) PO SCH (22:47)
[2022-11-04] MEDS ORDERED: LORazepam 0.5 MG TABLET PO ONE (05:00)
[2022-11-04 09:40] VITALS: BP 142/89; PULSE 77; RESP 18; TEMP 97.8
[2022-11-04] MEDS: PRENATAL VITAMINS W/ FOLIC ACID TABLET (FP) PO SCH (10:45)
== END 2022-11-04 10:14 | disposition home or self-care (01) | DRG 897 ==
LOC: YASAS 13:55 → Y3N 16:56
PROVIDERS: ADMIT Allergy & Immunology; ATTEND Allergy & Immunology
PROC: HZ2ZZZZ Detoxification Services for Substance Abuse Treatment (ICD-10-PCS; principal; 2022-10-31)
DX: F10.230 Alcohol dependence with withdrawal, uncomplicated (principal); F12.20 Cannabis dependence, uncomplicated; F17.210 Nicotine dependence, cigarettes, uncomplicated; F25.8 Other schizoaffective disorders; J45.20 Mild intermittent asthma, uncomplicated; R63.4 Abnormal weight loss; Z68.22 Body mass index [BMI] 22.0-22.9, adult; Z86.11 Personal history of tuberculosis
CPT/HCPCS: 36415; 71046-TC-FY; 80053; 85027; 86780; C9803-CS; U0003; U0005

== ENCOUNTER 2022-12-28 18:30 | Inpatient (IN) | payer OTHER ==
[2022-12-28 18:57] VITALS: BMI 22.2
[2022-12-28] MEDS ORDERED: P-EPHED 60MG/TRIPROLIDI 2.5MG TABLET PO PRN (19:51)
[2022-12-28] MEDS ORDERED: BENZOCAINE/MENTHOL (CHLORASEPTIC ) LOZENGE MM PRN (19:51)
[2022-12-28] MEDS ORDERED: hydrOXYzine PAMOATE 25 MG CAPSULE (FP) PO PRN (19:51)
[2022-12-28] MEDS ORDERED: NALOXONE HCL 0.4 MG/ML VIAL IM PRN (19:51)
[2022-12-28] MEDS ORDERED: MELATONIN 5 MG TABLETS PO PRN (19:51)
[2022-12-28] MEDS ORDERED: guaiFENesin 600 MG TABLET.ER (FP) PO PRN (19:51)
[2022-12-28] MEDS ORDERED: IBUPROFEN 400 MG TABLET (FP) PO PRN (19:51)
[2022-12-28] MEDS ORDERED: NALOXONE HCL (KLOXXADO) 8 MG SPRAY NS PRN (19:51)
[2022-12-28] MEDS ORDERED: ONDANSETRON *ODT* 4 MG TABLET SL PRN (19:51)
[2022-12-28] MEDS ORDERED: BENZONATATE 200 MG CAPSULE PO PRN (19:51)
[2022-12-28] MEDS ORDERED: MAG HYDROX/AL HYDROX/SIMETH 30 ML UNIT-DOSE CUP PO PRN (19:51)
[2022-12-28] MEDS ORDERED: DICYCLOMINE HCL 10 MG CAPSULE PO PRN (19:51)
[2022-12-28] MEDS ORDERED: IBUPROFEN 600 MG TABLET (FP) PO PRN (19:51)
[2022-12-28] MEDS ORDERED: ACETAMINOPHEN 325 MG TABLET (FP) PO PRN (19:51)
[2022-12-28] MEDS ORDERED: BISMUTH SUBSALICYLATE 524 MG/30 ML PO PRN (19:51)
[2022-12-28] MEDS ORDERED: MAGNESIUM HYDROX 2400MG/30ML ORAL SUSPENSION 30 ML CUP PO PRN (19:51)
[2022-12-28] MEDS ORDERED: LOPERAMIDE HCL 2 MG CAPSULE PO PRN (19:51)
[2022-12-28] MEDS ORDERED: POLYETHYLENE GLYCOL (HEALTHYLAX) 3350 17 GM PACKET PO PRN (19:51)
[2022-12-29] MEDS: THIAMINE HCL 100 MG TABLET (FP) PO SCH (00:18)
[2022-12-29] MEDS: PRENATAL VITAMINS W/ FOLIC ACID TABLET (FP) PO SCH (10:39)
[2022-12-29] MEDS ORDERED: LORazepam 1 MG TABLET PO PRN (16:15)
[2022-12-29] MEDS: LORazepam 1 MG TABLET PO SCH (17:37)
[2022-12-30] MEDS: THIAMINE HCL 100 MG TABLET (FP) PO SCH ×2 (01:27→23:26)
[2022-12-30] MEDS: LORazepam 1 MG TABLET PO SCH ×5 (01:28→23:25)
[2022-12-30] MEDS: PRENATAL VITAMINS W/ FOLIC ACID TABLET (FP) PO SCH (10:17)
[2022-12-30 21:04] VITALS: RESP 18
[2022-12-31] MEDS ORDERED: LORazepam 0.5 MG TABLET PO PRN
[2022-12-31] MEDS: LORazepam 0.5 MG TABLET PO SCH ×4 (05:59→23:38)
[2022-12-31] MEDS: PRENATAL VITAMINS W/ FOLIC ACID TABLET (FP) PO SCH (10:23)
[2022-12-31] MEDS: THIAMINE HCL 100 MG TABLET (FP) PO SCH (23:37)
[2023-01-01] MEDS ORDERED: LORazepam 0.5 MG TABLET PO ONE (05:00)
[2023-01-01 07:02] VITALS: BP 165/99; PULSE 66; TEMP 97.6
[2023-01-01] MEDS: PRENATAL VITAMINS W/ FOLIC ACID TABLET (FP) PO SCH (10:34)
== END 2023-01-01 10:10 | disposition home or self-care (01) | DRG 897 ==
LOC: YASAS 18:30 → Y6N 19:56
PROVIDERS: ADMIT Allergy & Immunology; ATTEND Surgery
PROC: HZ2ZZZZ Detoxification Services for Substance Abuse Treatment (ICD-10-PCS; principal; 2022-12-28)
DX: F10.230 Alcohol dependence with withdrawal, uncomplicated (principal); F12.20 Cannabis dependence, uncomplicated; F17.210 Nicotine dependence, cigarettes, uncomplicated; R76.11 Nonspecific reaction to tuberculin skin test without active tuberculosis
CPT/HCPCS: 36415; 86780; C9803-CS; U0003; U0005

== ENCOUNTER 2023-02-13 15:14 | Inpatient (IN) | payer OTHER ==
[2023-02-13 16:49] VITALS: BMI 23.5
[2023-02-13] MEDS ORDERED: BISMUTH SUBSALICYLATE 524 MG/30 ML PO PRN (18:07)
[2023-02-13] MEDS ORDERED: MAG HYDROX/AL HYDROX/SIMETH 30 ML UNIT-DOSE CUP PO PRN (18:07)
[2023-02-13] MEDS ORDERED: IBUPROFEN 400 MG TABLET (FP) PO PRN (18:07)
[2023-02-13] MEDS ORDERED: DICYCLOMINE HCL 10 MG CAPSULE PO PRN (18:07)
[2023-02-13] MEDS ORDERED: POLYETHYLENE GLYCOL (HEALTHYLAX) 3350 17 GM PACKET PO PRN (18:07)
[2023-02-13] MEDS ORDERED: LOPERAMIDE HCL 2 MG CAPSULE PO PRN (18:07)
[2023-02-13] MEDS ORDERED: BENZONATATE 200 MG CAPSULE PO PRN (18:07)
[2023-02-13] MEDS ORDERED: ONDANSETRON *ODT* 4 MG TABLET SL PRN (18:07)
[2023-02-13] MEDS ORDERED: ACETAMINOPHEN 325 MG TABLET (FP) PO PRN (18:07)
[2023-02-13] MEDS ORDERED: guaiFENesin 600 MG TABLET.ER (FP) PO PRN (18:07)
[2023-02-13] MEDS ORDERED: hydrOXYzine PAMOATE 25 MG CAPSULE (FP) PO PRN (18:07)
[2023-02-13] MEDS ORDERED: MAGNESIUM HYDROX 2400MG/30ML ORAL SUSPENSION 30 ML CUP PO PRN (18:07)
[2023-02-13] MEDS ORDERED: IBUPROFEN 600 MG TABLET (FP) PO PRN (18:07)
[2023-02-13] MEDS ORDERED: MELATONIN 5 MG TABLETS PO PRN (18:07)
[2023-02-13] MEDS ORDERED: P-EPHED 60MG/TRIPROLIDI 2.5MG TABLET PO PRN (18:07)
[2023-02-13] MEDS ORDERED: BENZOCAINE/MENTHOL (CHLORASEPTIC ) LOZENGE MM PRN (18:07)
[2023-02-13] MEDS: THIAMINE HCL 100 MG TABLET (FP) PO SCH (23:21)
[2023-02-14] MEDS ORDERED: LORazepam 1 MG TABLET PO PRN (09:53)
[2023-02-14] MEDS: PRENATAL VITAMINS W/ FOLIC ACID TABLET (FP) PO SCH (11:00)
[2023-02-14] MEDS: LORazepam 1 MG TABLET PO SCH ×3 (11:01→23:00)
[2023-02-14 11:15] LABS: HEMOGLOBIN 14.4 GM/dL (11.7-16.9); MCH 26.9 pg (25.7-33.7); MCHC 31.9 g/dl (32.0-35.9); MEAN CELL VOLUME 84.2 fl (80-96); MEAN PLT VOLUME 9.8 fl (7.5-11.1); PLATELET COUNT 191 10^3/uL (134-434); RBC 5.35 M/mm3 (4.00-5.60); RDW 17.1 % (11.9-15.9); WHITE BLOOD COUNT 5.4 K/mm3 (4.0-10.0)
[2023-02-14 11:51] LABS: CALCIUM 9.8 mg/dL (8.5-10.1)
[2023-02-14 11:52] LABS: ALBUMIN 4.1 g/dl (3.4-5.0); BLOOD UREA NITROGEN 15.7 mg/dL (7-18)
[2023-02-14 11:55] LABS: CREATININE 1.2 mg/dL (0.55-1.3)
[2023-02-14 11:57] LABS: TOT PROT 8.4 g/dl (6.4-8.2)
[2023-02-14 11:59] LABS: BILIRUBIN,TOTAL 0.9 mg/dL (0.2-1)
[2023-02-14] MEDS: THIAMINE HCL 100 MG TABLET (FP) PO SCH (23:00)
[2023-02-15] MEDS: LORazepam 1 MG TABLET PO SCH ×4 (05:54→22:47)
[2023-02-15] MEDS: PRENATAL VITAMINS W/ FOLIC ACID TABLET (FP) PO SCH (10:24)
[2023-02-15] MEDS: THIAMINE HCL 100 MG TABLET (FP) PO SCH (22:47)
[2023-02-16] MEDS: LORazepam 1 MG TABLET PO SCH ×4 (05:58→22:42)
[2023-02-16] MEDS: PRENATAL VITAMINS W/ FOLIC ACID TABLET (FP) PO SCH (10:33)
[2023-02-16] MEDS: THIAMINE HCL 100 MG TABLET (FP) PO SCH (22:59)
[2023-02-17] MEDS ORDERED: LORazepam 0.5 MG TABLET PO PRN
[2023-02-17] MEDS: LORazepam 0.5 MG TABLET PO SCH ×4 (05:25→23:31)
[2023-02-17] MEDS: PRENATAL VITAMINS W/ FOLIC ACID TABLET (FP) PO SCH (10:28)
[2023-02-17] MEDS: THIAMINE HCL 100 MG TABLET (FP) PO SCH (23:31)
[2023-02-18] MEDS ORDERED: LORazepam 0.5 MG TABLET PO ONE (05:00)
[2023-02-18 09:27] VITALS: BP 125/76; PULSE 64; RESP 18; TEMP 97.6
[2023-02-18] MEDS: PRENATAL VITAMINS W/ FOLIC ACID TABLET (FP) PO SCH (11:10)
== END 2023-02-18 09:45 | disposition other institution (70) | DRG 897 ==
LOC: YASAS 15:14 → Y3N 20:22
PROVIDERS: ADMIT Allergy & Immunology; ATTEND Surgery
PROC: HZ2ZZZZ Detoxification Services for Substance Abuse Treatment (ICD-10-PCS; principal; 2023-02-13)
DX: F10.230 Alcohol dependence with withdrawal, uncomplicated (principal); F12.20 Cannabis dependence, uncomplicated; F17.210 Nicotine dependence, cigarettes, uncomplicated; R76.11 Nonspecific reaction to tuberculin skin test without active tuberculosis
CPT/HCPCS: 36415; 80053; 85027; 86780; 87635

== ENCOUNTER 2023-04-02 18:31 | Inpatient (IN) | payer OTHER ==
[2023-04-02 20:59] VITALS: BMI 22.9
[2023-04-02] MEDS ORDERED: BENZOCAINE/MENTHOL (CHLORASEPTIC ) LOZENGE MM PRN (22:45)
[2023-04-02] MEDS ORDERED: P-EPHED 60MG/TRIPROLIDI 2.5MG TABLET PO PRN (22:45)
[2023-04-02] MEDS ORDERED: LOPERAMIDE HCL 2 MG CAPSULE PO PRN (22:45)
[2023-04-02] MEDS ORDERED: ONDANSETRON *ODT* 4 MG TABLET SL PRN (22:45)
[2023-04-02] MEDS ORDERED: BISMUTH SUBSALICYLATE 524 MG/30 ML PO PRN (22:45)
[2023-04-02] MEDS ORDERED: ACETAMINOPHEN 325 MG TABLET (FP) PO PRN (22:45)
[2023-04-02] MEDS ORDERED: IBUPROFEN 400 MG TABLET (FP) PO PRN (22:45)
[2023-04-02] MEDS ORDERED: POLYETHYLENE GLYCOL (HEALTHYLAX) 3350 17 GM PACKET PO PRN (22:45)
[2023-04-02] MEDS ORDERED: IBUPROFEN 600 MG TABLET (FP) PO PRN (22:45)
[2023-04-02] MEDS ORDERED: NICOTINE POLACRILEX 2 MG GUM BUC PRN (22:45)
[2023-04-02] MEDS ORDERED: MAG HYDROX/AL HYDROX/SIMETH 30 ML UNIT-DOSE CUP PO PRN (22:45)
[2023-04-02] MEDS ORDERED: BENZONATATE 200 MG CAPSULE PO PRN (22:45)
[2023-04-02] MEDS ORDERED: guaiFENesin 600 MG TABLET.ER (FP) PO PRN (22:45)
[2023-04-03] MEDS ORDERED: LORazepam 1 MG TABLET PO PRN (09:18)
[2023-04-03] MEDS: LORazepam 2 MG TABLET PO SCH ×3 (10:17→22:23)
[2023-04-03] MEDS: PRENATAL VITAMINS W/ FOLIC ACID TABLET (FP) PO SCH (10:18)
[2023-04-03 10:36] LABS: HEMATOCRIT 35.8 % (35.4-49); HEMOGLOBIN 12.1 GM/dL (11.7-16.9); MCH 28.1 pg (25.7-33.7); MCHC 33.7 g/dl (32.0-35.9); MEAN CELL VOLUME 83.5 fl (80-96); MEAN PLT VOLUME 8.6 fl (7.5-11.1); PLATELET COUNT 204 10^3/uL (134-434); RBC 4.28 M/mm3 (4.00-5.60); RDW 17.4 % (11.9-15.9); WHITE BLOOD COUNT 3.5 K/mm3 (4.0-10.0)
[2023-04-03 10:48] LABS: ALBUMIN 3.9 g/dl (3.4-5.0)
[2023-04-03 10:51] LABS: CREATININE 0.9 mg/dL (0.55-1.3)
[2023-04-03 10:53] LABS: BILIRUBIN,TOTAL 0.4 mg/dL (0.2-1); TOT PROT 7.5 g/dl (6.4-8.2)
[2023-04-03] MEDS: MAGNESIUM HYDROX 2400MG/30ML ORAL SUSPENSION 30 ML CUP PO PRN (17:34)
[2023-04-03] MEDS: THIAMINE HCL 100 MG TABLET (FP) PO SCH (22:23)
[2023-04-03] MEDS: MELATONIN 5 MG TABLETS PO SCH (22:24)
[2023-04-04] MEDS: LORazepam 2 MG TABLET PO SCH ×4 (06:00→22:23)
[2023-04-04] MEDS: PRENATAL VITAMINS W/ FOLIC ACID TABLET (FP) PO SCH (10:24)
[2023-04-04] MEDS: MAGNESIUM HYDROX 2400MG/30ML ORAL SUSPENSION 30 ML CUP PO PRN (14:48)
[2023-04-04] MEDS: THIAMINE HCL 100 MG TABLET (FP) PO SCH (22:23)
[2023-04-04] MEDS: MELATONIN 5 MG TABLETS PO SCH (22:24)
[2023-04-05] MEDS: LORazepam 1 MG TABLET PO SCH ×4 (05:34→22:20)
[2023-04-05] MEDS: MAGNESIUM HYDROX 2400MG/30ML ORAL SUSPENSION 30 ML CUP PO PRN (05:35)
[2023-04-05] MEDS: PRENATAL VITAMINS W/ FOLIC ACID TABLET (FP) PO SCH (10:19)
[2023-04-05 10:52] LABS: SGOT/AST 307 U/L (15-37); SGPT/ALT 287 U/L (13-61)
[2023-04-05] MEDS: THIAMINE HCL 100 MG TABLET (FP) PO SCH (22:20)
[2023-04-05] MEDS: MELATONIN 5 MG TABLETS PO SCH (22:20)
[2023-04-06] MEDS ORDERED: LORazepam 0.5 MG TABLET PO PRN
[2023-04-06] MEDS: LORazepam 0.5 MG TABLET PO SCH ×4 (05:42→22:52)
[2023-04-06] MEDS: PRENATAL VITAMINS W/ FOLIC ACID TABLET (FP) PO SCH (10:07)
[2023-04-06] MEDS: MELATONIN 5 MG TABLETS PO SCH (22:52)
[2023-04-06] MEDS: THIAMINE HCL 100 MG TABLET (FP) PO SCH (22:52)
[2023-04-07] MEDS ORDERED: LORazepam 0.5 MG TABLET PO ONE (05:00)
[2023-04-07 06:12] VITALS: BP 154/78; PULSE 73; RESP 17; TEMP 97.7
== END 2023-04-07 07:45 | disposition home or self-care (01) | DRG 897 ==
LOC: YASAS 18:31 → Y6N 23:18
PROVIDERS: ADMIT Allergy & Immunology; ATTEND Surgery
PROC: HZ2ZZZZ Detoxification Services for Substance Abuse Treatment (ICD-10-PCS; principal; 2023-04-02)
DX: F10.230 Alcohol dependence with withdrawal, uncomplicated (principal); F12.20 Cannabis dependence, uncomplicated; F17.210 Nicotine dependence, cigarettes, uncomplicated; M17.0 Bilateral primary osteoarthritis of knee; R74.8 Abnormal levels of other serum enzymes; Z86.11 Personal history of tuberculosis; Z99.89 Dependence on other enabling machines and devices
CPT/HCPCS: 36415; 80053; 84450; 84460; 85027; 86780; 87635

== ENCOUNTER 2023-07-09 12:43 | Inpatient (IN) | payer OTHER ==
[2023-07-09 13:11] VITALS: BMI 22.9
[2023-07-09] MEDS ORDERED: guaiFENesin 600 MG TABLET.ER (FP) PO PRN (13:56)
[2023-07-09] MEDS ORDERED: MAGNESIUM HYDROX 2400MG/30ML ORAL SUSPENSION 30 ML CUP PO PRN (13:56)
[2023-07-09] MEDS ORDERED: NALOXONE HCL 0.4 MG/ML VIAL IM PRN (13:56)
[2023-07-09] MEDS ORDERED: NALOXONE HCL (KLOXXADO) 8 MG SPRAY NS PRN (13:56)
[2023-07-09] MEDS ORDERED: ONDANSETRON *ODT* 4 MG TABLET SL PRN (13:56)
[2023-07-09] MEDS ORDERED: BISMUTH SUBSALICYLATE 262 MG/15 ML BTL PO PRN (13:56)
[2023-07-09] MEDS ORDERED: IBUPROFEN 600 MG TABLET (FP) PO PRN (13:56)
[2023-07-09] MEDS ORDERED: hydrOXYzine PAMOATE 25 MG CAPSULE (FP) PO PRN (13:56)
[2023-07-09] MEDS ORDERED: POLYETHYLENE GLYCOL (HEALTHYLAX) 3350 17 GM PACKET PO PRN (13:56)
[2023-07-09] MEDS ORDERED: BENZOCAINE/MENTHOL (CHLORASEPTIC ) LOZENGE MM PRN (13:56)
[2023-07-09] MEDS ORDERED: ACETAMINOPHEN 325 MG TABLET (FP) PO PRN (13:56)
[2023-07-09] MEDS ORDERED: MAG HYDROX/AL HYDROX/SIMETH 30 ML UNIT-DOSE CUP PO PRN (13:56)
[2023-07-09] MEDS ORDERED: chlordiazePOXIDE HCL 25 MG CAPSULE PO PRN (13:56)
[2023-07-09] MEDS ORDERED: BENZONATATE 200 MG CAPSULE PO PRN (13:56)
[2023-07-09] MEDS ORDERED: DICYCLOMINE HCL 10 MG CAPSULE PO PRN (13:56)
[2023-07-09] MEDS ORDERED: METHOCARBAMOL 500 MG TABLET PO PRN (13:56)
[2023-07-09] MEDS ORDERED: IBUPROFEN 400 MG TABLET (FP) PO PRN (13:56)
[2023-07-09] MEDS ORDERED: LOPERAMIDE HCL 2 MG CAPSULE PO PRN (13:56)
[2023-07-09] MEDS ORDERED: PRENATAL VITAMINS W/ FOLIC ACID TABLET (FP) PO SCH (14:00)
[2023-07-09 16:53] VITALS: BP 144/89; PULSE 68; RESP 17; TEMP 97.3
[2023-07-09] MEDS ORDERED: chlordiazePOXIDE HCL 25 MG CAPSULE PO SCH (17:00)
[2023-07-09] MEDS ORDERED: THIAMINE HCL 100 MG TABLET (FP) PO SCH (22:00)
[2023-07-09] MEDS ORDERED: MELATONIN 5 MG TABLETS PO SCH (22:00)
[2023-07-11] MEDS ORDERED: chlordiazePOXIDE HCL 25 MG CAPSULE PO SCH (05:00)
[2023-07-12] MEDS ORDERED: chlordiazePOXIDE HCL 10 MG CAPSULE PO PRN
[2023-07-12] MEDS ORDERED: chlordiazePOXIDE HCL 10 MG CAPSULE PO SCH (05:00)
[2023-07-13] MEDS ORDERED: chlordiazePOXIDE HCL 10 MG CAPSULE PO SCH (05:00)
[2023-07-14] MEDS ORDERED: chlordiazePOXIDE HCL 10 MG CAPSULE PO ONE (05:00)
== END 2023-07-09 19:06 | disposition left against medical advice (07) | DRG 894 ==
LOC: YASAS 12:43 → Y3N 14:14
PROVIDERS: ADMIT Allergy & Immunology; ATTEND Surgery
PROC: HZ2ZZZZ Detoxification Services for Substance Abuse Treatment (ICD-10-PCS; principal; 2023-07-09)
DX: F10.230 Alcohol dependence with withdrawal, uncomplicated (principal); U07.1 COVID-19; F12.20 Cannabis dependence, uncomplicated; F17.210 Nicotine dependence, cigarettes, uncomplicated; I25.2 Old myocardial infarction; Z86.11 Personal history of tuberculosis; Z56.0 Unemployment, unspecified
CPT/HCPCS: 36415; 80307; 87635

== ENCOUNTER 2023-10-31 12:13 | Inpatient (IN) | payer OTHER ==
[2023-10-31 14:50] VITALS: BMI 22.3
[2023-10-31] MEDS ORDERED: NALOXONE HCL 0.4 MG/ML VIAL IM PRN (15:54)
[2023-10-31] MEDS ORDERED: METHOCARBAMOL 500 MG TABLET PO PRN (15:54)
[2023-10-31] MEDS ORDERED: IBUPROFEN 600 MG TABLET (FP) PO PRN (15:54)
[2023-10-31] MEDS ORDERED: POLYETHYLENE GLYCOL (HEALTHYLAX) 3350 17 GM PACKET PO PRN (15:54)
[2023-10-31] MEDS ORDERED: IBUPROFEN 400 MG TABLET (FP) PO PRN (15:54)
[2023-10-31] MEDS ORDERED: LORazepam 1 MG TABLET PO PRN (15:54)
[2023-10-31] MEDS ORDERED: BENZONATATE 200 MG CAPSULE PO PRN (15:54)
[2023-10-31] MEDS ORDERED: BENZOCAINE/MENTHOL (CHLORASEPTIC ) LOZENGE MM PRN (15:54)
[2023-10-31] MEDS ORDERED: NALOXONE HCL (KLOXXADO) 8 MG SPRAY NS PRN (15:54)
[2023-10-31] MEDS ORDERED: LOPERAMIDE HCL 2 MG CAPSULE PO PRN (15:54)
[2023-10-31] MEDS ORDERED: hydrOXYzine PAMOATE 25 MG CAPSULE (FP) PO PRN (15:54)
[2023-10-31] MEDS ORDERED: DICYCLOMINE HCL 10 MG CAPSULE PO PRN (15:54)
[2023-10-31] MEDS ORDERED: guaiFENesin 600 MG TABLET.ER (FP) PO PRN (15:54)
[2023-10-31] MEDS ORDERED: ONDANSETRON *ODT* 4 MG TABLET SL PRN (15:54)
[2023-10-31] MEDS ORDERED: ACETAMINOPHEN 325 MG TABLET (FP) PO PRN (15:54)
[2023-10-31] MEDS ORDERED: BISMUTH SUBSALICYLATE 524 MG/30 ML PO PRN (15:54)
[2023-10-31] MEDS: LORazepam 2 MG TABLET PO SCH (17:43)
[2023-10-31] MEDS: PRENATAL VITAMINS W/ FOLIC ACID TABLET (FP) PO SCH (17:45)
[2023-10-31] MEDS: THIAMINE HCL 100 MG TABLET (FP) PO SCH (22:34)
[2023-10-31] MEDS: MELATONIN 5 MG TABLETS PO SCH (22:36)
[2023-11-01] MEDS: MAGNESIUM HYDROX 2400MG/30ML ORAL SUSPENSION 30 ML CUP PO PRN (05:57)
[2023-11-01 15:05] LABS: HEMATOCRIT 38.3 % (35.4-49); HEMOGLOBIN 12.3 GM/dL (11.7-16.9); MCH 27.2 pg (25.7-33.7); MCHC 32.2 g/dl (32.0-35.9); MEAN CELL VOLUME 84.4 fl (80-96); PLATELET COUNT 214 10^3/uL (134-434); RBC 4.53 M/mm3 (4.00-5.60); RDW 16.6 % (11.9-15.9); WHITE BLOOD COUNT 4.3 K/mm3 (4.0-10.0)
[2023-11-01 15:07] LABS: CHLORIDE 109 mmol/L (98-107); POTASSIUM 4.5 mmol/L (3.5-5.1); SODIUM 143 mmol/L (136-145)
[2023-11-01 15:11] LABS: CALCIUM 9.3 mg/dL (8.5-10.1)
[2023-11-01 15:12] LABS: ALBUMIN 3.5 g/dl (3.4-5.0); ANION GAP 8 mmol/L (4-13); BLOOD UREA NITROGEN 14.4 mg/dL (7-18); CO2 25 mmol/L (21-32); GLUCOSE,RANDOM 121 mg/dL (74-106)
[2023-11-01 15:15] LABS: CREATININE 0.9 mg/dL (0.55-1.3); SGOT/AST 38 U/L (15-37); SGPT/ALT 36 U/L (13-61)
[2023-11-01 15:17] LABS: BILIRUBIN,TOTAL 0.3 mg/dL (0.2-1); TOT PROT 7.2 g/dl (6.4-8.2)
[2023-11-01 15:18] LABS: ALK PHOS 162 U/L (45-117)
[2023-11-02] MEDS: LORazepam 1 MG TABLET PO SCH (06:00)
[2023-11-02] MEDS: MAG HYDROX/AL HYDROX/SIMETH 30 ML UNIT-DOSE CUP PO PRN (19:38)
[2023-11-03] MEDS ORDERED: LORazepam 0.5 MG TABLET PO PRN
[2023-11-03] MEDS: LORazepam 0.5 MG TABLET PO SCH (05:44)
[2023-11-04] MEDS: LORazepam 0.5 MG TABLET PO ONE (05:58)
[2023-11-04 08:49] VITALS: BP 132/85; PULSE 81; RESP 18; TEMP 97.1
== END 2023-11-04 09:34 | disposition home or self-care (01) | DRG 897 ==
LOC: YASAS 12:13 → Y6N 17:04
PROVIDERS: ADMIT Allergy & Immunology; ATTEND Surgery
PROC: HZ2ZZZZ Detoxification Services for Substance Abuse Treatment (ICD-10-PCS; principal; 2023-10-31)
DX: F10.230 Alcohol dependence with withdrawal, uncomplicated (principal); F12.20 Cannabis dependence, uncomplicated; F17.210 Nicotine dependence, cigarettes, uncomplicated; R76.11 Nonspecific reaction to tuberculin skin test without active tuberculosis; R74.8 Abnormal levels of other serum enzymes
CPT/HCPCS: 36415; 80053; 80305; 80307; 85027; 86780; 93005; 93010

== ENCOUNTER 2024-05-02 13:30 | Inpatient (IN) | payer OTHER ==
[2024-05-02 14:28] VITALS: BMI 23.8
[2024-05-02] MEDS ORDERED: POLYETHYLENE GLYCOL (HEALTHYLAX) 3350 17 GM PACKET PO PRN (16:52)
[2024-05-02] MEDS ORDERED: IBUPROFEN 400 MG TABLET (FP) PO PRN (16:52)
[2024-05-02] MEDS ORDERED: ACETAMINOPHEN 325 MG TABLET (FP) PO PRN (16:52)
[2024-05-02] MEDS ORDERED: BENZONATATE 200 MG CAPSULE PO PRN (16:52)
[2024-05-02] MEDS ORDERED: LOPERAMIDE HCL 2 MG CAPSULE PO PRN (16:52)
[2024-05-02] MEDS ORDERED: IBUPROFEN 600 MG TABLET (FP) PO PRN (16:52)
[2024-05-02] MEDS ORDERED: MAG HYDROX/AL HYDROX/SIMETH 30 ML UNIT-DOSE CUP PO PRN (16:52)
[2024-05-02] MEDS ORDERED: P-EPHED 60MG/TRIPROLIDI 2.5MG TABLET PO PRN (16:52)
[2024-05-02] MEDS ORDERED: guaiFENesin 600 MG TABLET.ER (FP) PO PRN (16:52)
[2024-05-02] MEDS ORDERED: MAGNESIUM HYDROX 2400MG/30ML ORAL SUSPENSION 30 ML CUP PO PRN (16:52)
[2024-05-02] MEDS ORDERED: NICOTINE POLACRILEX 2 MG GUM BUC PRN (16:52)
[2024-05-02] MEDS ORDERED: NICOTINE POLACRILEX 2 MG LOZENGE BC PRN (16:52)
[2024-05-02] MEDS ORDERED: BENZOCAINE/MENTHOL (CHLORASEPTIC ) LOZENGE MM PRN (16:52)
[2024-05-02] MEDS ORDERED: BISMUTH SUBSALICYLATE 524 MG/30 ML PO PRN (16:52)
[2024-05-02] MEDS ORDERED: ONDANSETRON *ODT* 4 MG TABLET SL PRN (16:52)
[2024-05-02] MEDS: MELATONIN 5 MG TABLETS PO SCH (22:58)
[2024-05-03] MEDS: THIAMINE 100 MG TABLET PO SCH (00:30)
[2024-05-03] MEDS: PRENATAL VITAMINS W/ FOLIC ACID TABLET (FP) PO SCH (10:08)
[2024-05-03] MEDS: diazePAM 5 MG TABLET PO SCH (10:08)
[2024-05-03 14:59] LABS: HEMATOCRIT 37.4 % (35.4-49); HEMOGLOBIN 11.8 GM/dL (11.7-16.9); MCHC 31.6 g/dl (32.0-35.9); MEAN CELL VOLUME 85.4 fl (80-96); MEAN PLT VOLUME 8.9 fl (7.5-11.1); PLATELET COUNT 229 10^3/uL (134-434); RBC 4.38 M/mm3 (4.00-5.60); RDW 18.8 % (11.9-15.9); WHITE BLOOD COUNT 3.6 K/mm3 (4.0-10.0)
[2024-05-03 15:01] LABS: CHLORIDE 104 mmol/L (98-107); POTASSIUM 4.7 mmol/L (3.5-5.1); SODIUM 137 mmol/L (136-145)
[2024-05-03 15:04] LABS: CALCIUM 9.4 mg/dL (8.5-10.1)
[2024-05-03 15:05] LABS: ALBUMIN 3.6 g/dl (3.4-5.0); ANION GAP 4 mmol/L (4-13); CO2 29 mmol/L (21-32); GLUCOSE,RANDOM 73 mg/dL (74-106)
[2024-05-03 15:07] LABS: SGPT/ALT 155 U/L (13-61)
[2024-05-03 15:08] LABS: CREATININE 0.8 mg/dL (0.55-1.3); SGOT/AST 174 U/L (15-37)
[2024-05-03 15:09] LABS: BILIRUBIN,TOTAL 0.4 mg/dL (0.2-1)
[2024-05-03 15:10] LABS: ALK PHOS 103 U/L (45-117)
[2024-05-04] MEDS: diazePAM 5 MG TABLET PO SCH (05:55)
[2024-05-04 09:24] VITALS: PULSE 85; TEMP 97.5
[2024-05-04] MEDS: diazePAM 5 MG TABLET PO PRN (10:28)
[2024-05-04 14:33] VITALS: BP 132/82; RESP 16
[2024-05-05] MEDS ORDERED: diazePAM 5 MG TABLET PO SCH (06:00)
[2024-05-06] MEDS ORDERED: diazePAM 5 MG TABLET PO ONE (06:00)
== END 2024-05-04 14:55 | disposition left against medical advice (07) | DRG 897 ==
LOC: YASAS 13:30 → Y6N 16:59
PROVIDERS: ADMIT Allergy & Immunology; ATTEND Surgery
PROC: HZ2ZZZZ Detoxification Services for Substance Abuse Treatment (ICD-10-PCS; principal; 2024-05-02)
DX: F10.230 Alcohol dependence with withdrawal, uncomplicated (principal); F12.20 Cannabis dependence, uncomplicated; F17.210 Nicotine dependence, cigarettes, uncomplicated; R74.8 Abnormal levels of other serum enzymes; R76.11 Nonspecific reaction to tuberculin skin test without active tuberculosis; F91.8 Other conduct disorders; Z91.199 Patient's noncompliance with other medical treatment and regimen due to unspecified reason
CPT/HCPCS: 36415; 80053; 80305; 80307; 85027

== ENCOUNTER 2024-05-29 17:35 | Inpatient (IN) | payer OTHER ==
[2024-05-29 18:24] VITALS: BMI 22.9
[2024-05-29] MEDS ORDERED: BENZONATATE 200 MG CAPSULE PO PRN (18:50)
[2024-05-29] MEDS ORDERED: BISMUTH SUBSALICYLATE 524 MG/30 ML PO PRN (18:50)
[2024-05-29] MEDS ORDERED: ONDANSETRON *ODT* 4 MG TABLET SL PRN (18:50)
[2024-05-29] MEDS ORDERED: NICOTINE POLACRILEX 2 MG GUM BUC PRN (18:50)
[2024-05-29] MEDS ORDERED: NICOTINE POLACRILEX 2 MG LOZENGE BC PRN (18:50)
[2024-05-29] MEDS ORDERED: POLYETHYLENE GLYCOL (HEALTHYLAX) 3350 17 GM PACKET PO PRN (18:50)
[2024-05-29] MEDS ORDERED: IBUPROFEN 400 MG TABLET (FP) PO PRN (18:50)
[2024-05-29] MEDS ORDERED: BENZOCAINE/MENTHOL (CHLORASEPTIC ) LOZENGE MM PRN (18:50)
[2024-05-29] MEDS ORDERED: MAG HYDROX/AL HYDROX/SIMETH 30 ML UNIT-DOSE CUP PO PRN (18:50)
[2024-05-29] MEDS ORDERED: ACETAMINOPHEN 325 MG TABLET (FP) PO PRN (18:50)
[2024-05-29] MEDS ORDERED: P-EPHED 60MG/TRIPROLIDI 2.5MG TABLET PO PRN (18:50)
[2024-05-29] MEDS ORDERED: guaiFENesin 600 MG TABLET.ER (FP) PO PRN (18:50)
[2024-05-29] MEDS ORDERED: MAGNESIUM HYDROX 2400MG/30ML ORAL SUSPENSION 30 ML CUP PO PRN (18:50)
[2024-05-29] MEDS ORDERED: IBUPROFEN 600 MG TABLET (FP) PO PRN (18:50)
[2024-05-29] MEDS: THIAMINE 100 MG TABLET PO SCH (23:52)
[2024-05-29] MEDS: MELATONIN 5 MG TABLETS PO SCH (23:52)
[2024-05-30] MEDS: LOPERAMIDE HCL 2 MG CAPSULE PO PRN (06:29)
[2024-05-30] MEDS: PRENATAL VITAMINS W/ FOLIC ACID TABLET (FP) PO SCH (10:16)
[2024-05-31 06:14] VITALS: PULSE 67
[2024-05-31 09:07] VITALS: BP 138/81; RESP 18; TEMP 96.9
== END 2024-05-31 11:28 | disposition other institution (70) | DRG 897 ==
LOC: YASAS 17:35 → Y3N 19:13
PROVIDERS: ADMIT Allergy & Immunology; ATTEND Surgery
PROC: HZ2ZZZZ Detoxification Services for Substance Abuse Treatment (ICD-10-PCS; principal; 2024-05-29)
DX: F10.20 Alcohol dependence, uncomplicated (principal); F12.20 Cannabis dependence, uncomplicated; F17.210 Nicotine dependence, cigarettes, uncomplicated; I25.2 Old myocardial infarction; Z86.11 Personal history of tuberculosis
CPT/HCPCS: 80305; 80307

== ENCOUNTER 2024-06-26 16:22 | Inpatient (IN) | payer OTHER ==
[2024-06-26 16:52] VITALS: BMI 19.8
[2024-06-26] MEDS ORDERED: ONDANSETRON *ODT* 4 MG TABLET SL PRN (17:55)
[2024-06-26] MEDS ORDERED: MAGNESIUM HYDROX 2400MG/30ML ORAL SUSPENSION 30 ML CUP PO PRN (17:55)
[2024-06-26] MEDS ORDERED: NICOTINE POLACRILEX 2 MG LOZENGE BC PRN (17:55)
[2024-06-26] MEDS ORDERED: NICOTINE POLACRILEX 2 MG GUM BUC PRN (17:55)
[2024-06-26] MEDS ORDERED: LOPERAMIDE HCL 2 MG CAPSULE PO PRN (17:55)
[2024-06-26] MEDS ORDERED: POLYETHYLENE GLYCOL (HEALTHYLAX) 3350 17 GM PACKET PO PRN (17:55)
[2024-06-26] MEDS ORDERED: IBUPROFEN 600 MG TABLET (FP) PO PRN (17:55)
[2024-06-26] MEDS ORDERED: ACETAMINOPHEN 325 MG TABLET (FP) PO PRN (17:55)
[2024-06-26] MEDS ORDERED: IBUPROFEN 400 MG TABLET (FP) PO PRN (17:55)
[2024-06-26] MEDS ORDERED: BENZOCAINE/MENTHOL (CHLORASEPTIC ) LOZENGE MM PRN (17:55)
[2024-06-26] MEDS ORDERED: guaiFENesin 600 MG TABLET.ER (FP) PO PRN (17:55)
[2024-06-26] MEDS ORDERED: BENZONATATE 200 MG CAPSULE PO PRN (17:55)
[2024-06-26] MEDS: THIAMINE 100 MG TABLET PO SCH (22:45)
[2024-06-26] MEDS: MELATONIN 5 MG TABLETS PO SCH (22:45)
[2024-06-27] MEDS: PRENATAL VITAMINS W/ FOLIC ACID TABLET (FP) PO SCH (09:40)
[2024-06-27] MEDS ORDERED: LORazepam 1 MG TABLET PO PRN (10:42)
[2024-06-27] MEDS: LORazepam 2 MG TABLET PO SCH (11:03)
[2024-06-29] MEDS: LORazepam 1 MG TABLET PO SCH (05:22)
[2024-06-29] MEDS: BISMUTH SUBSALICYLATE 524 MG/30 ML PO PRN (05:53)
[2024-06-29 09:57] LABS: HEMATOCRIT 36.8 % (35.4-49); HEMOGLOBIN 11.9 GM/dL (11.7-16.9); MCH 27.6 pg (25.7-33.7); MCHC 32.5 g/dl (32.0-35.9); MEAN PLT VOLUME 9.1 fl (7.5-11.1); PLATELET COUNT 193 10^3/uL (134-434); RBC 4.33 M/mm3 (4.00-5.60); RDW 17.2 % (11.9-15.9); WHITE BLOOD COUNT 5.1 K/mm3 (4.0-10.0)
[2024-06-29 10:39] LABS: POTASSIUM 4.4 mmol/L (3.5-5.1)
[2024-06-29 10:43] LABS: ALBUMIN 3.6 g/dl (3.4-5.0); BLOOD UREA NITROGEN 16.6 mg/dL (7-18); CALCIUM 9.7 mg/dL (8.5-10.1)
[2024-06-29 10:46] LABS: CREATININE 0.9 mg/dL (0.55-1.3)
[2024-06-29 10:48] LABS: BILIRUBIN,TOTAL 0.3 mg/dL (0.2-1); TOT PROT 7.1 g/dl (6.4-8.2)
[2024-06-29] MEDS: amLODIPine BESYLATE 10 MG TABLET (FP) PO SCH (12:14)
[2024-06-29] MEDS: MAG HYDROX/AL HYDROX/SIMETH 30 ML UNIT-DOSE CUP PO PRN (16:26)
[2024-06-29 20:44] VITALS: RESP 16
[2024-06-30] MEDS ORDERED: LORazepam 0.5 MG TABLET PO PRN
[2024-06-30] MEDS: LORazepam 0.5 MG TABLET PO SCH (05:39)
[2024-06-30 06:30] VITALS: BP 130/78; PULSE 77; TEMP 97.6
[2024-06-30] MEDS: NALOXONE (NYS OPIOID OVERDOSE PROGRAM) 4 MG/0.1 ML SPRAY NS SCH (09:33)
[2024-07-01] MEDS ORDERED: LORazepam 0.5 MG TABLET PO ONE (05:00)
== END 2024-06-30 09:00 | disposition home or self-care (01) | DRG 775 ==
LOC: YASAS 16:22 → Y6N 19:11
PROVIDERS: ADMIT Allergy & Immunology; ATTEND Surgery
PROC: HZ2ZZZZ Detoxification Services for Substance Abuse Treatment (ICD-10-PCS; principal; 2024-06-26)
DX: F10.230 Alcohol dependence with withdrawal, uncomplicated (principal); F12.20 Cannabis dependence, uncomplicated; F17.210 Nicotine dependence, cigarettes, uncomplicated; I10 Essential (primary) hypertension; I25.2 Old myocardial infarction
CPT/HCPCS: 36415; 80053; 80305; 80307; 85027; 86780

== ENCOUNTER 2024-07-24 11:23 | Inpatient (IN) | payer OTHER ==
[2024-07-24 11:55] VITALS: BMI 22.2
[2024-07-24] MEDS ORDERED: diazePAM 5 MG TABLET PO PRN (12:03)
[2024-07-24] MEDS ORDERED: POLYETHYLENE GLYCOL (HEALTHYLAX) 3350 17 GM PACKET PO PRN (12:06)
[2024-07-24] MEDS ORDERED: BENZOCAINE/MENTHOL (CHLORASEPTIC ) LOZENGE MM PRN (12:06)
[2024-07-24] MEDS ORDERED: NALOXONE (NARCAN) HCL 4 MG/0.1 ML SPRAY NS PRN (12:06)
[2024-07-24] MEDS ORDERED: NICOTINE POLACRILEX 2 MG LOZENGE BC PRN (12:06)
[2024-07-24] MEDS ORDERED: BISMUTH SUBSALICYLATE 524 MG/30 ML PO PRN (12:06)
[2024-07-24] MEDS ORDERED: IBUPROFEN 400 MG TABLET (FP) PO PRN (12:06)
[2024-07-24] MEDS ORDERED: P-EPHED 60MG/TRIPROLIDI 2.5MG TABLET PO PRN (12:06)
[2024-07-24] MEDS ORDERED: LOPERAMIDE HCL 2 MG CAPSULE PO PRN (12:06)
[2024-07-24] MEDS ORDERED: MAGNESIUM HYDROX 2400MG/30ML ORAL SUSPENSION 30 ML CUP PO PRN (12:06)
[2024-07-24] MEDS ORDERED: IBUPROFEN 600 MG TABLET (FP) PO PRN (12:06)
[2024-07-24] MEDS ORDERED: MAG HYDROX/AL HYDROX/SIMETH 30 ML UNIT-DOSE CUP PO PRN (12:06)
[2024-07-24] MEDS ORDERED: ACETAMINOPHEN 325 MG TABLET (FP) PO PRN (12:06)
[2024-07-24] MEDS ORDERED: guaiFENesin 600 MG TABLET.ER (FP) PO PRN (12:06)
[2024-07-24] MEDS ORDERED: NICOTINE POLACRILEX 2 MG GUM BUC PRN (12:06)
[2024-07-24] MEDS ORDERED: ONDANSETRON *ODT* 4 MG TABLET SL PRN (12:06)
[2024-07-24] MEDS ORDERED: BENZONATATE 200 MG CAPSULE PO PRN (12:06)
[2024-07-24] MEDS: diazePAM 5 MG TABLET PO SCH (17:49)
[2024-07-24] MEDS: MELATONIN 5 MG TABLETS PO SCH (22:46)
[2024-07-24] MEDS: THIAMINE 100 MG TABLET PO SCH (22:46)
[2024-07-25] MEDS: diazePAM 5 MG TABLET PO ONE (07:32)
[2024-07-25] MEDS: amLODIPine BESYLATE 10 MG TABLET (FP) PO SCH (09:53)
[2024-07-25] MEDS: ASPIRIN COATED 81 MG TABLET.EC PO SCH (09:53)
[2024-07-25] MEDS: PRENATAL VITAMINS W/ FOLIC ACID TABLET (FP) PO SCH (09:54)
[2024-07-25] MEDS: MINERAL OIL/PETROLAT/WATER TOPICAL CREAM 113 GM JAR TP SCH (23:27)
[2024-07-26] MEDS: diazePAM 5 MG TABLET PO SCH (05:44)
[2024-07-27] MEDS: diazePAM 5 MG TABLET PO SCH (05:53)
[2024-07-27 09:14] VITALS: BP 142/93; PULSE 83; RESP 15; TEMP 97.3
[2024-07-27] MEDS: NALOXONE (NYS OPIOID OVERDOSE PROGRAM) 4 MG/0.1 ML SPRAY NS SCH (11:46)
[2024-07-28] MEDS ORDERED: diazePAM 5 MG TABLET PO ONE (06:00)
== END 2024-07-27 11:55 | disposition home or self-care (01) | DRG 897 ==
LOC: YASAS 11:23 → Y6N 12:27
PROVIDERS: ADMIT Neuromusculoskeletal Medicine & OMM; ATTEND Surgery
PROC: HZ2ZZZZ Detoxification Services for Substance Abuse Treatment (ICD-10-PCS; principal; 2024-07-24)
DX: F10.230 Alcohol dependence with withdrawal, uncomplicated (principal); F12.20 Cannabis dependence, uncomplicated; F17.210 Nicotine dependence, cigarettes, uncomplicated; I10 Essential (primary) hypertension; L85.3 Xerosis cutis

== ENCOUNTER 2024-08-19 19:58 | Inpatient (IN) | payer OTHER ==
[2024-08-19 20:57] VITALS: BMI 23.6
[2024-08-19] MEDS ORDERED: BENZONATATE 200 MG CAPSULE PO PRN (21:13)
[2024-08-19] MEDS ORDERED: ACETAMINOPHEN 325 MG TABLET (FP) PO PRN (21:13)
[2024-08-19] MEDS ORDERED: POLYETHYLENE GLYCOL (HEALTHYLAX) 3350 17 GM PACKET PO PRN (21:13)
[2024-08-19] MEDS ORDERED: LOPERAMIDE HCL 2 MG CAPSULE PO PRN (21:13)
[2024-08-19] MEDS ORDERED: MAGNESIUM HYDROX 2400MG/30ML ORAL SUSPENSION 30 ML CUP PO PRN (21:13)
[2024-08-19] MEDS ORDERED: guaiFENesin 600 MG TABLET.ER (FP) PO PRN (21:13)
[2024-08-19] MEDS ORDERED: P-EPHED 60MG/TRIPROLIDI 2.5MG TABLET PO PRN (21:13)
[2024-08-19] MEDS ORDERED: BENZOCAINE/MENTHOL (CHLORASEPTIC ) LOZENGE MM PRN (21:13)
[2024-08-19] MEDS ORDERED: BISMUTH SUBSALICYLATE 524 MG/30 ML PO PRN (21:13)
[2024-08-19] MEDS ORDERED: IBUPROFEN 400 MG TABLET (FP) PO PRN (21:13)
[2024-08-19] MEDS ORDERED: ONDANSETRON *ODT* 4 MG TABLET SL PRN (21:13)
[2024-08-19] MEDS ORDERED: MAG HYDROX/AL HYDROX/SIMETH 30 ML UNIT-DOSE CUP PO PRN (21:13)
[2024-08-19] MEDS ORDERED: diazePAM 5 MG TABLET PO PRN (21:14)
[2024-08-20] MEDS: THIAMINE 100 MG TABLET PO SCH (00:34)
[2024-08-20] MEDS: MELATONIN 5 MG TABLETS PO SCH (00:34)
[2024-08-20] MEDS: diazePAM 5 MG TABLET PO SCH (06:07)
[2024-08-20] MEDS: PRENATAL VITAMINS W/ FOLIC ACID TABLET (FP) PO SCH (10:13)
[2024-08-20] MEDS: IBUPROFEN 600 MG TABLET (FP) PO PRN (10:14)
[2024-08-20 11:38] LABS: HEMATOCRIT 39.9 % (35.4-49); HEMOGLOBIN 12.9 GM/dL (11.7-16.9); MCH 27.1 pg (25.7-33.7); MCHC 32.2 g/dl (32.0-35.9); MEAN CELL VOLUME 84.1 fl (80-96); MEAN PLT VOLUME 9.1 fl (7.5-11.1); PLATELET COUNT 212 10^3/uL (134-434); RBC 4.75 M/mm3 (4.00-5.60); RDW 16.4 % (11.9-15.9); WHITE BLOOD COUNT 3.6 K/mm3 (4.0-10.0)
[2024-08-20 14:14] LABS: POTASSIUM 4.3 mmol/L (3.5-5.1)
[2024-08-20 14:32] LABS: BLOOD UREA NITROGEN 20.6 mg/dL (7-18)
[2024-08-20 14:35] LABS: BILIRUBIN,TOTAL 0.4 mg/dL (0.2-1)
[2024-08-20 14:36] LABS: TOT PROT 7.6 g/dl (6.4-8.2)
[2024-08-21] MEDS: diazePAM 5 MG TABLET PO SCH (05:52)
[2024-08-21] MEDS: amLODIPine BESYLATE 10 MG TABLET (FP) PO SCH (10:31)
[2024-08-21] MEDS: ASPIRIN 81 MG CHEWABLE TABLETS PO SCH (10:32)
[2024-08-22] MEDS: diazePAM 5 MG TABLET PO SCH (05:37)
[2024-08-22] MEDS ORDERED: METHYL SALICYLATE/MENTHOL 30 GM TUBE TP PRN (12:35)
[2024-08-23] MEDS: diazePAM 5 MG TABLET PO ONE (06:00)
[2024-08-23] MEDS: NALOXONE (NYS OPIOID OVERDOSE PROGRAM) 4 MG/0.1 ML SPRAY NS SCH (09:00)
[2024-08-23 09:10] VITALS: BP 169/97; PULSE 68; RESP 17; TEMP 97.8
== END 2024-08-23 09:13 | disposition other institution (70) | DRG 897 ==
LOC: YASAS 19:58 → Y3N 23:33
PROVIDERS: ADMIT Allergy & Immunology; ATTEND Allergy & Immunology
PROC: HZ2ZZZZ Detoxification Services for Substance Abuse Treatment (ICD-10-PCS; principal; 2024-08-19)
DX: F10.230 Alcohol dependence with withdrawal, uncomplicated (principal); F10.220 Alcohol dependence with intoxication, uncomplicated; F17.210 Nicotine dependence, cigarettes, uncomplicated; I10 Essential (primary) hypertension; I25.2 Old myocardial infarction
CPT/HCPCS: 36415; 80053; 80305; 80307; 85027

== ENCOUNTER 2024-09-13 20:41 | Inpatient (IN) | payer OTHER ==
[2024-09-13 21:11] VITALS: BMI 23.6
[2024-09-13] MEDS ORDERED: LOPERAMIDE HCL 2 MG CAPSULE PO PRN (21:36)
[2024-09-13] MEDS ORDERED: NICOTINE POLACRILEX 2 MG GUM BUC PRN (21:36)
[2024-09-13] MEDS ORDERED: NICOTINE POLACRILEX 2 MG LOZENGE BC PRN (21:36)
[2024-09-13] MEDS ORDERED: MAG HYDROX/AL HYDROX/SIMETH 30 ML UNIT-DOSE CUP PO PRN (21:36)
[2024-09-13] MEDS ORDERED: IBUPROFEN 400 MG TABLET (FP) PO PRN (21:36)
[2024-09-13] MEDS ORDERED: POLYETHYLENE GLYCOL (HEALTHYLAX) 3350 17 GM PACKET PO PRN (21:36)
[2024-09-13] MEDS ORDERED: ONDANSETRON *ODT* 4 MG TABLET SL PRN (21:36)
[2024-09-13] MEDS ORDERED: DICYCLOMINE HCL 10 MG CAPSULE PO PRN (21:36)
[2024-09-13] MEDS ORDERED: BENZOCAINE/MENTHOL (CHLORASEPTIC ) LOZENGE MM PRN (21:36)
[2024-09-13] MEDS ORDERED: BISMUTH SUBSALICYLATE 524 MG/30 ML PO PRN (21:36)
[2024-09-13] MEDS ORDERED: MAGNESIUM HYDROX 2400MG/30ML ORAL SUSPENSION 30 ML CUP PO PRN (21:36)
[2024-09-13] MEDS ORDERED: P-EPHED 60MG/TRIPROLIDI 2.5MG TABLET PO PRN (21:36)
[2024-09-13] MEDS ORDERED: guaiFENesin 600 MG TABLET.ER (FP) PO PRN (21:36)
[2024-09-13] MEDS ORDERED: IBUPROFEN 600 MG TABLET (FP) PO PRN (21:36)
[2024-09-13] MEDS ORDERED: ACETAMINOPHEN 325 MG TABLET (FP) PO PRN (21:36)
[2024-09-13] MEDS ORDERED: BENZONATATE 200 MG CAPSULE PO PRN (21:36)
[2024-09-14] MEDS: THIAMINE 100 MG TABLET PO SCH (02:51)
[2024-09-14] MEDS: MELATONIN 5 MG TABLETS PO SCH (02:51)
[2024-09-14] MEDS ORDERED: LORazepam 1 MG TABLET PO PRN (07:26)
[2024-09-14] MEDS: ASPIRIN 81 MG CHEWABLE TABLETS PO SCH (10:03)
[2024-09-14] MEDS: amLODIPine BESYLATE 10 MG TABLET (FP) PO SCH (10:03)
[2024-09-14] MEDS: PRENATAL VITAMINS W/ FOLIC ACID TABLET (FP) PO SCH (10:03)
[2024-09-14] MEDS: LORazepam 2 MG TABLET PO SCH (10:03)
[2024-09-15] MEDS: LISINOPRIL 10 MG TABLET PO SCH (12:31)
[2024-09-16] MEDS: LORazepam 1 MG TABLET PO SCH (06:08)
[2024-09-16] MEDS: NALTREXONE HCL 50 MG TABLET PO SCH (18:21)
[2024-09-17] MEDS: LORazepam 0.5 MG TABLET PO SCH (06:17)
[2024-09-17] MEDS: LORazepam 0.5 MG TABLET PO PRN (06:17)
[2024-09-17 20:53] VITALS: BP 115/68
[2024-09-18] MEDS: LORazepam 0.5 MG TABLET PO ONE (06:00)
[2024-09-18 07:23] VITALS: PULSE 65; RESP 17; TEMP 97.7
== END 2024-09-18 10:48 | disposition home or self-care (01) | DRG 897 ==
LOC: YASAS 20:41 → Y6N 09-14 02:19
PROVIDERS: ADMIT Allergy & Immunology; ATTEND Allergy & Immunology
PROC: HZ2ZZZZ Detoxification Services for Substance Abuse Treatment (ICD-10-PCS; principal; 2024-09-14)
DX: F10.230 Alcohol dependence with withdrawal, uncomplicated (principal); F17.210 Nicotine dependence, cigarettes, uncomplicated; I10 Essential (primary) hypertension; I25.2 Old myocardial infarction
CPT/HCPCS: 80305; 80307

== ENCOUNTER 2024-11-12 15:40 | Inpatient (IN) | payer OTHER ==
[2024-11-12 16:52] VITALS: BP 93/62; PULSE 83; RESP 16; TEMP 97.1; BMI 23.2
[2024-11-12] MEDS ORDERED: BENZOCAINE/MENTHOL (CHLORASEPTIC ) LOZENGE MM PRN (17:29)
[2024-11-12] MEDS ORDERED: NALOXONE (NARCAN) HCL 4 MG/0.1 ML SPRAY NS PRN (17:29)
[2024-11-12] MEDS ORDERED: hydrOXYzine PAMOATE 25 MG CAPSULE (FP) PO PRN (17:29)
[2024-11-12] MEDS ORDERED: MAGNESIUM HYDROX 2400MG/30ML ORAL SUSPENSION 30 ML CUP PO PRN (17:29)
[2024-11-12] MEDS ORDERED: guaiFENesin 600 MG TABLET.ER (FP) PO PRN (17:29)
[2024-11-12] MEDS ORDERED: NICOTINE POLACRILEX 2 MG GUM BUC PRN (17:29)
[2024-11-12] MEDS ORDERED: BISMUTH SUBSALICYLATE 524 MG/30 ML PO PRN (17:29)
[2024-11-12] MEDS ORDERED: POLYETHYLENE GLYCOL (HEALTHYLAX) 3350 17 GM PACKET PO PRN (17:29)
[2024-11-12] MEDS ORDERED: IBUPROFEN 400 MG TABLET (FP) PO PRN (17:29)
[2024-11-12] MEDS ORDERED: BENZONATATE 200 MG CAPSULE PO PRN (17:29)
[2024-11-12] MEDS ORDERED: ACETAMINOPHEN 325 MG TABLET (FP) PO PRN (17:29)
[2024-11-12] MEDS ORDERED: DICYCLOMINE HCL 10 MG CAPSULE PO PRN (17:29)
[2024-11-12] MEDS ORDERED: IBUPROFEN 600 MG TABLET (FP) PO PRN (17:29)
[2024-11-12] MEDS ORDERED: ONDANSETRON *ODT* 4 MG TABLET SL PRN (17:29)
[2024-11-12] MEDS ORDERED: LORazepam 1 MG TABLET PO PRN (17:29)
[2024-11-12] MEDS ORDERED: MAG HYDROX/AL HYDROX/SIMETH 30 ML UNIT-DOSE CUP PO PRN (17:29)
[2024-11-12] MEDS ORDERED: METHOCARBAMOL 500 MG TABLET PO PRN (17:29)
[2024-11-12] MEDS ORDERED: LOPERAMIDE HCL 2 MG CAPSULE PO PRN (17:29)
[2024-11-12] MEDS: LORazepam 2 MG TABLET PO SCH (22:39)
[2024-11-12] MEDS: MELATONIN 5 MG TABLETS PO SCH (22:40)
[2024-11-12] MEDS: THIAMINE 100 MG TABLET PO SCH (22:41)
[2024-11-13] MEDS ORDERED: PRENATAL VITAMINS W/ FOLIC ACID TABLET (FP) PO SCH (10:00)
[2024-11-14] MEDS ORDERED: LORazepam 1 MG TABLET PO SCH (05:00)
[2024-11-15] MEDS ORDERED: LORazepam 0.5 MG TABLET PO PRN
[2024-11-15] MEDS ORDERED: LORazepam 0.5 MG TABLET PO SCH (05:00)
[2024-11-16] MEDS ORDERED: LORazepam 0.5 MG TABLET PO ONE (05:00)
== END 2024-11-12 23:07 | disposition short-term general hospital (02) | DRG 951 ==
LOC: YASAS 15:40 → Y6N 18:29
PROVIDERS: ADMIT Allergy & Immunology; ATTEND Allergy & Immunology
DX: Z53.8 Procedure and treatment not carried out for other reasons (principal)
CPT/HCPCS: 80305; 80307; 93005; 93010

== ENCOUNTER 2024-11-12 19:09 | Observation (INO) | payer OTHER ==
[2024-11-12 19:26] VITALS: BMI 22.7
[2024-11-12 19:46] LABS: ABSOLUTE IMMATURE GRANULOCYTES 0.01 x10^3/uL (0.0-0.031); BASOPHILS # 0.03 x10^3/uL (0.01-0.08); EOSINOPHIL % 3.6 % (0.8-7.0); EOSINOPHILS # 0.16 x10^3/uL (0.04-0.54); HEMATOCRIT 43.9 % (40.1-51.0); MCHC 31.9 g/dl (32.3-36.5); MEAN CELL VOLUME 84.7 fl (79.0-92.2); MONOCYTE # 0.26 x10^3/uL (0.30-0.82); MONOCYTE % 5.8 % (5.3-12.2); PLATELET COUNT 187 x10^3/uL (163-337); RDW 16.9 % (12.2-16.4)
[2024-11-12 19:52] LABS: INR 0.98 (0.83-1.09); PROTHROMBIN TIME (PATIENT) 10.8 SEC (9.7-13.0)
[2024-11-12 20:06] LABS: POTASSIUM 3.8 mmol/L (3.5-5.1)
[2024-11-12 20:08] LABS: CALCIUM 9.1 mg/dL (8.5-10.1)
[2024-11-12 20:09] LABS: ALBUMIN 3.8 g/dl (3.4-5.0); BLOOD UREA NITROGEN 15.3 mg/dL (7-18)
[2024-11-12 20:13] LABS: BILIRUBIN,TOTAL 0.5 mg/dL (0.2-1); TOT PROT 7.3 g/dl (6.4-8.2)
[2024-11-12] MEDS ORDERED: diazePAM 5 MG TABLET PO PRN (21:46)
[2024-11-12] MEDS ORDERED: LORazepam 2 MG/ML SDV VIAL ONE (22:27)
[2024-11-12] MEDS: LORazepam 2 MG/ML SDV VIAL IVPUSH PRN (22:28)
[2024-11-12] MEDS: diazePAM 5 MG TABLET PO SCH (23:37)
[2024-11-12] MEDS: APIXABAN 5 MG TABLET PO SCH (23:38)
[2024-11-13] MEDS ORDERED: LORazepam 2 MG/ML SDV VIAL IVPUSH PRN (00:46)
[2024-11-13 05:48] VITALS: BP 121/86; PULSE 56; RESP 18; TEMP 98.2
[2024-11-13] MEDS: ENOXAPARIN NA (PORCINE) 40 MG/0.4 ML DISP.SYRIN SQ SCH (09:21)
[2024-11-13 09:51] LABS: ABSOLUTE IMMATURE GRANULOCYTES 0.01 x10^3/uL (0.0-0.031); BASOPHILS # 0.03 x10^3/uL (0.01-0.08); EOSINOPHIL % 6.2 % (0.8-7.0); EOSINOPHILS # 0.25 x10^3/uL (0.04-0.54); HEMATOCRIT 45.6 % (40.1-51.0); HEMOGLOBIN 13.9 g/dL (13.7-17.5); MCHC 30.5 g/dl (32.3-36.5); MEAN PLT VOLUME 10.4 fl (9.4-12.4); MONOCYTE % 7.5 % (5.3-12.2); PLATELET COUNT 192 x10^3/uL (163-337); RDW 17.3 % (12.2-16.4)
[2024-11-13 10:11] LABS: POTASSIUM 3.9 mmol/L (3.5-5.1)
[2024-11-13 10:13] LABS: CALCIUM 8.9 mg/dL (8.5-10.1)
[2024-11-13 10:14] LABS: ALBUMIN 3.5 g/dl (3.4-5.0); BLOOD UREA NITROGEN 16.2 mg/dL (7-18)
[2024-11-13 10:17] LABS: CREATININE 1.2 mg/dL (0.55-1.3); PHOSPHOROUS 2.3 mg/dL (2.5-4.9)
[2024-11-13 10:18] LABS: BILIRUBIN,TOTAL 0.9 mg/dL (0.2-1)
[2024-11-13] MEDS ORDERED: NAPH,MB-DB/K PH,MBDB POWDER PACKET PO ONE (13:30)
[2024-11-14] MEDS ORDERED: diazePAM 5 MG TABLET PO SCH (06:00)
[2024-11-15] MEDS ORDERED: diazePAM 5 MG TABLET PO SCH (06:00)
[2024-11-16] MEDS ORDERED: diazePAM 5 MG TABLET PO ONE (06:00)
== END 2024-11-13 14:01 | disposition short-term general hospital (02) ==
LOC: JER 19:09 → UNDOADMOB 21:20 → JERBED 21:20 → INTOOBSV 21:29 → OBSVTOIN 21:29 → JERBED 22:54 → J4W 22:54 → JER 22:56 → J4W 11-13 00:50
PROVIDERS: ADMIT Internal Medicine; ATTEND Student in an Organized Health Care Education/Training Program
DX: I48.0 Paroxysmal atrial fibrillation (principal); F10.99 Alcohol use, unspecified with unspecified alcohol-induced disorder; F12.90 Cannabis use, unspecified, uncomplicated; I10 Essential (primary) hypertension; I25.9 Chronic ischemic heart disease, unspecified; I25.2 Old myocardial infarction; F17.200 Nicotine dependence, unspecified, uncomplicated
CPT/HCPCS: 36415; 71045-TC-FY; 80053; 80307; 83735; 84100; 84443; 84484; 85025; 85610; 99285-25; G0378

== ENCOUNTER 2024-11-13 14:41 | Inpatient (IN) | payer OTHER ==
[2024-11-13 16:23] VITALS: BMI 21.9
[2024-11-13] MEDS ORDERED: POLYETHYLENE GLYCOL (HEALTHYLAX) 3350 17 GM PACKET PO PRN (16:54)
[2024-11-13] MEDS ORDERED: guaiFENesin 600 MG TABLET.ER (FP) PO PRN (16:54)
[2024-11-13] MEDS ORDERED: ACETAMINOPHEN 325 MG TABLET (FP) PO PRN (16:54)
[2024-11-13] MEDS ORDERED: METHOCARBAMOL 500 MG TABLET PO PRN (16:54)
[2024-11-13] MEDS ORDERED: LOPERAMIDE HCL 2 MG CAPSULE PO PRN (16:54)
[2024-11-13] MEDS ORDERED: DICYCLOMINE HCL 10 MG CAPSULE PO PRN (16:54)
[2024-11-13] MEDS ORDERED: NALOXONE (NARCAN) HCL 4 MG/0.1 ML SPRAY NS PRN (16:54)
[2024-11-13] MEDS ORDERED: ONDANSETRON *ODT* 4 MG TABLET SL PRN (16:54)
[2024-11-13] MEDS ORDERED: hydrOXYzine PAMOATE 25 MG CAPSULE (FP) PO PRN (16:54)
[2024-11-13] MEDS ORDERED: BENZOCAINE/MENTHOL (CHLORASEPTIC ) LOZENGE MM PRN (16:54)
[2024-11-13] MEDS ORDERED: BISMUTH SUBSALICYLATE 524 MG/30 ML PO PRN (16:54)
[2024-11-13] MEDS ORDERED: NICOTINE POLACRILEX 2 MG GUM BUC PRN (16:54)
[2024-11-13] MEDS ORDERED: MAG HYDROX/AL HYDROX/SIMETH 30 ML UNIT-DOSE CUP PO PRN (16:54)
[2024-11-13] MEDS ORDERED: IBUPROFEN 400 MG TABLET (FP) PO PRN (16:54)
[2024-11-13] MEDS ORDERED: BENZONATATE 200 MG CAPSULE PO PRN (16:54)
[2024-11-13] MEDS ORDERED: IBUPROFEN 600 MG TABLET (FP) PO PRN (16:54)
[2024-11-13] MEDS: LORazepam 2 MG TABLET PO SCH (17:56)
[2024-11-13] MEDS: MELATONIN 5 MG TABLETS PO SCH (22:39)
[2024-11-13] MEDS: THIAMINE 100 MG TABLET PO SCH (22:39)
[2024-11-14] MEDS: PRENATAL VITAMINS W/ FOLIC ACID TABLET (FP) PO SCH (10:46)
[2024-11-14] MEDS: metoPROLOL SUCCINATE 25 MG TAB.SR.24H (FP) PO SCH (10:47)
[2024-11-14] MEDS: LORazepam 1 MG TABLET PO PRN (22:38)
[2024-11-15] MEDS: LORazepam 1 MG TABLET PO SCH (05:42)
[2024-11-15] MEDS: MAGNESIUM HYDROX 2400MG/30ML ORAL SUSPENSION 30 ML CUP PO PRN (08:49)
[2024-11-15] MEDS: BACLOFEN 10 MG TABLET (FP) PO PRN (22:49)
[2024-11-16] MEDS ORDERED: LORazepam 0.5 MG TABLET PO PRN
[2024-11-16] MEDS: LORazepam 0.5 MG TABLET PO SCH (05:50)
[2024-11-16] MEDS: NALTREXONE HCL 50 MG TABLET PO ONE (14:20)
[2024-11-17] MEDS: LORazepam 0.5 MG TABLET PO ONE (05:55)
[2024-11-17 06:27] VITALS: RESP 16
[2024-11-17] MEDS: NALTREXONE HCL 50 MG TABLET PO SCH (09:23)
[2024-11-17 09:53] VITALS: BP 123/77; PULSE 55; TEMP 97.8
== END 2024-11-17 09:51 | disposition other institution (70) | DRG 897 ==
LOC: YASAS 14:41 → Y6N 16:51
PROVIDERS: ADMIT Allergy & Immunology; ATTEND Allergy & Immunology
PROC: HZ2ZZZZ Detoxification Services for Substance Abuse Treatment (ICD-10-PCS; principal; 2024-11-13)
DX: F10.230 Alcohol dependence with withdrawal, uncomplicated (principal); F12.20 Cannabis dependence, uncomplicated; F17.210 Nicotine dependence, cigarettes, uncomplicated; I10 Essential (primary) hypertension; Z86.11 Personal history of tuberculosis
CPT/HCPCS: 80305; 80307; J0475

== ENCOUNTER 2024-11-27 01:48 | Inpatient (IN) | payer OTHER ==
[2024-11-27] MEDS ORDERED: guaiFENesin 600 MG TABLET.ER (FP) PO PRN (01:52)
[2024-11-27] MEDS ORDERED: NALOXONE (NARCAN) HCL 4 MG/0.1 ML SPRAY NS PRN (01:52)
[2024-11-27] MEDS ORDERED: POLYETHYLENE GLYCOL (HEALTHYLAX) 3350 17 GM PACKET PO PRN (01:52)
[2024-11-27] MEDS ORDERED: NICOTINE POLACRILEX 2 MG LOZENGE BC PRN (01:52)
[2024-11-27] MEDS ORDERED: NALOXONE HCL 0.4 MG/ML VIAL IVPUSH PRN (01:52)
[2024-11-27] MEDS ORDERED: BENZONATATE 200 MG CAPSULE PO PRN (01:52)
[2024-11-27] MEDS ORDERED: MAG HYDROX/AL HYDROX/SIMETH 30 ML UNIT-DOSE CUP PO PRN (01:52)
[2024-11-27] MEDS ORDERED: ACETAMINOPHEN 325 MG TABLET (FP) PO PRN (01:52)
[2024-11-27] MEDS ORDERED: MAGNESIUM HYDROX 2400MG/30ML ORAL SUSPENSION 30 ML CUP PO PRN (01:52)
[2024-11-27] MEDS ORDERED: hydrOXYzine PAMOATE 25 MG CAPSULE (FP) PO PRN (01:52)
[2024-11-27] MEDS ORDERED: BENZOCAINE/MENTHOL (CHLORASEPTIC ) LOZENGE MM PRN (01:52)
[2024-11-27] MEDS ORDERED: LOPERAMIDE HCL 2 MG CAPSULE PO PRN (01:52)
[2024-11-27 02:02] VITALS: RESP 17; BMI 22.8
[2024-11-27 03:05] VITALS: TEMP 97.5
[2024-11-27 10:18] VITALS: BP 137/87; PULSE 66
[2024-11-27] MEDS: NICOTINE 14 MG/24 HOURS TOPICAL PATCH TD SCH (11:31)
[2024-11-27] MEDS: PRENATAL VITAMINS W/ FOLIC ACID TABLET (FP) PO SCH (11:31)
[2024-11-27] MEDS: metoPROLOL SUCCINATE 25 MG TAB.SR.24H (FP) PO SCH (11:32)
[2024-11-27] MEDS: NALOXONE (NYS OPIOID OVERDOSE PROGRAM) 4 MG/0.1 ML SPRAY NS SCH (12:49)
[2024-11-27] MEDS ORDERED: THIAMINE 100 MG TABLET PO SCH (22:00)
[2024-11-27] MEDS ORDERED: MELATONIN 5 MG TABLETS PO SCH (22:00)
== END 2024-11-27 12:44 | disposition home or self-care (01) | DRG 895 ==
LOC: YASAS 01:48 → Y3W 02:37
PROVIDERS: ADMIT Allergy & Immunology; ATTEND Allergy & Immunology
PROC: HZ42ZZZ Group Counseling for Substance Abuse Treatment, Cognitive-Behavioral (ICD-10-PCS; principal; 2024-11-27)
DX: F10.20 Alcohol dependence, uncomplicated (principal); F12.20 Cannabis dependence, uncomplicated; F17.210 Nicotine dependence, cigarettes, uncomplicated
CPT/HCPCS: 36415; 80305; 80307; 86803

== ENCOUNTER 2024-12-24 16:13 | Inpatient (IN) | payer OTHER ==
[2024-12-24 16:40] VITALS: BMI 22.7
[2024-12-24] MEDS ORDERED: ACETAMINOPHEN 325 MG TABLET (FP) PO PRN (17:45)
[2024-12-24] MEDS ORDERED: MAG HYDROX/AL HYDROX/SIMETH 30 ML UNIT-DOSE CUP PO PRN (17:45)
[2024-12-24] MEDS ORDERED: MAGNESIUM HYDROX 2400MG/30ML ORAL SUSPENSION 30 ML CUP PO PRN (17:45)
[2024-12-24] MEDS ORDERED: guaiFENesin 600 MG TABLET.ER (FP) PO PRN (17:45)
[2024-12-24] MEDS ORDERED: NALOXONE (NARCAN) HCL 4 MG/0.1 ML SPRAY NS PRN (17:45)
[2024-12-24] MEDS ORDERED: BENZOCAINE/MENTHOL (CHLORASEPTIC ) LOZENGE MM PRN (17:45)
[2024-12-24] MEDS ORDERED: BISMUTH SUBSALICYLATE 524 MG/30 ML PO PRN (17:45)
[2024-12-24] MEDS ORDERED: LOPERAMIDE HCL 2 MG CAPSULE PO PRN (17:45)
[2024-12-24] MEDS ORDERED: BENZONATATE 200 MG CAPSULE PO PRN (17:45)
[2024-12-24] MEDS ORDERED: IBUPROFEN 400 MG TABLET (FP) PO PRN (17:45)
[2024-12-24] MEDS ORDERED: ONDANSETRON *ODT* 4 MG TABLET SL PRN (17:45)
[2024-12-24] MEDS ORDERED: IBUPROFEN 600 MG TABLET (FP) PO PRN (17:45)
[2024-12-24] MEDS ORDERED: POLYETHYLENE GLYCOL (HEALTHYLAX) 3350 17 GM PACKET PO PRN (17:45)
[2024-12-24] MEDS ORDERED: diazePAM 5 MG TABLET PO PRN (18:08)
[2024-12-24] MEDS: THIAMINE 100 MG TABLET PO SCH (22:31)
[2024-12-24] MEDS: MELATONIN 5 MG TABLETS PO SCH (22:31)
[2024-12-24] MEDS: diazePAM 5 MG TABLET PO SCH (22:31)
[2024-12-25] MEDS: PRENATAL VITAMINS W/ FOLIC ACID TABLET (FP) PO SCH (10:39)
[2024-12-25] MEDS: metoPROLOL SUCCINATE 25 MG TAB.SR.24H (FP) PO SCH (10:39)
[2024-12-26] MEDS: diazePAM 5 MG TABLET PO SCH (06:19)
[2024-12-27] MEDS: diazePAM 5 MG TABLET PO SCH (05:57)
[2024-12-28] MEDS: diazePAM 5 MG TABLET PO ONE (05:58)
[2024-12-28 06:03] VITALS: TEMP 97.7
[2024-12-28 09:21] VITALS: BP 156/90; PULSE 80; RESP 20
== END 2024-12-28 10:16 | disposition home or self-care (01) | DRG 897 ==
LOC: YASAS 16:13 → Y3N 19:37
PROVIDERS: ADMIT Allergy & Immunology; ATTEND Allergy & Immunology
PROC: HZ2ZZZZ Detoxification Services for Substance Abuse Treatment (ICD-10-PCS; principal; 2024-12-24)
DX: F10.230 Alcohol dependence with withdrawal, uncomplicated (principal); F10.220 Alcohol dependence with intoxication, uncomplicated; F12.20 Cannabis dependence, uncomplicated; F17.210 Nicotine dependence, cigarettes, uncomplicated; I10 Essential (primary) hypertension; I48.91 Unspecified atrial fibrillation; I25.2 Old myocardial infarction
CPT/HCPCS: 80305; 80307

== ENCOUNTER 2025-01-25 12:54 | Inpatient (IN) | payer OTHER ==
[2025-01-25 13:41] VITALS: BMI 20.6
[2025-01-25] MEDS ORDERED: guaiFENesin 600 MG TABLET.ER (FP) PO PRN (13:42)
[2025-01-25] MEDS ORDERED: IBUPROFEN 400 MG TABLET (FP) PO PRN (13:42)
[2025-01-25] MEDS ORDERED: MAGNESIUM HYDROX 2400MG/30ML ORAL SUSPENSION 30 ML CUP PO PRN (13:42)
[2025-01-25] MEDS ORDERED: BISMUTH SUBSALICYLATE 524 MG/30 ML PO PRN (13:42)
[2025-01-25] MEDS ORDERED: BENZONATATE 200 MG CAPSULE PO PRN (13:42)
[2025-01-25] MEDS ORDERED: NALOXONE (NARCAN) HCL 4 MG/0.1 ML SPRAY NS PRN (13:42)
[2025-01-25] MEDS ORDERED: MAG HYDROX/AL HYDROX/SIMETH 30 ML UNIT-DOSE CUP PO PRN (13:42)
[2025-01-25] MEDS ORDERED: ONDANSETRON *ODT* 4 MG TABLET SL PRN (13:42)
[2025-01-25] MEDS ORDERED: POLYETHYLENE GLYCOL (HEALTHYLAX) 3350 17 GM PACKET PO PRN (13:42)
[2025-01-25] MEDS ORDERED: BENZOCAINE/MENTHOL (CHLORASEPTIC ) LOZENGE MM PRN (13:42)
[2025-01-25] MEDS ORDERED: LOPERAMIDE HCL 2 MG CAPSULE PO PRN (13:42)
[2025-01-25] MEDS: metoPROLOL SUCCINATE 25 MG TAB.SR.24H (FP) PO SCH (15:51)
[2025-01-25] MEDS: diazePAM 5 MG TABLET PO SCH (17:33)
[2025-01-25] MEDS: THIAMINE 100 MG TABLET PO SCH (22:38)
[2025-01-25] MEDS: MELATONIN 5 MG TABLETS PO SCH (22:38)
[2025-01-26] MEDS: PRENATAL VITAMINS W/ FOLIC ACID TABLET (FP) PO SCH (09:58)
[2025-01-26 11:22] LABS: HEMATOCRIT 41.6 % (40.1-51.0); HEMOGLOBIN 13.3 g/dL (13.7-17.5); MEAN CELL VOLUME 85.2 fl (79.0-92.2); MEAN PLT VOLUME 10.7 fl (9.4-12.4); PLATELET COUNT 192 x10^3/uL (163-337); RDW 15.7 % (12.2-16.4)
[2025-01-26 11:58] LABS: POTASSIUM 3.8 mmol/L (3.5-5.1)
[2025-01-26 12:03] LABS: ALBUMIN 3.8 g/dl (3.4-5.0); BLOOD UREA NITROGEN 18.1 mg/dL (7-18); CALCIUM 9.1 mg/dL (8.5-10.1)
[2025-01-26 12:06] LABS: BILIRUBIN,TOTAL 0.6 mg/dL (0.2-1); CREATININE 0.9 mg/dL (0.55-1.3)
[2025-01-26 12:07] LABS: TOT PROT 7.4 g/dl (6.4-8.2)
[2025-01-27] MEDS: diazePAM 5 MG TABLET PO SCH (05:57)
[2025-01-27] MEDS: diazePAM 5 MG TABLET PO PRN (09:39)
[2025-01-27] MEDS: ACETAMINOPHEN 325 MG TABLET (FP) PO PRN (22:46)
[2025-01-28] MEDS: diazePAM 5 MG TABLET PO SCH (05:33)
[2025-01-29 06:30] VITALS: BP 137/80; PULSE 72; RESP 16; TEMP 97.6
[2025-01-29] MEDS: diazePAM 5 MG TABLET PO ONE (06:37)
== END 2025-01-29 09:50 | disposition home or self-care (01) | DRG 897 ==
LOC: YASAS 12:54 → Y6N 15:16
PROVIDERS: ADMIT Allergy & Immunology; ATTEND Allergy & Immunology
PROC: HZ2ZZZZ Detoxification Services for Substance Abuse Treatment (ICD-10-PCS; principal; 2025-01-25)
DX: F10.230 Alcohol dependence with withdrawal, uncomplicated (principal); F12.20 Cannabis dependence, uncomplicated; F17.210 Nicotine dependence, cigarettes, uncomplicated; I48.91 Unspecified atrial fibrillation; I10 Essential (primary) hypertension; I25.2 Old myocardial infarction
CPT/HCPCS: 36415; 80053; 80305; 80307; 85027; 86780

== ENCOUNTER 2025-03-31 15:11 | Inpatient (IN) | payer OTHER ==
[2025-03-31 15:36] VITALS: BMI 22.2
[2025-03-31] MEDS ORDERED: LOPERAMIDE HCL 2 MG CAPSULE PO PRN (16:42)
[2025-03-31] MEDS ORDERED: MAG HYDROX/AL HYDROX/SIMETH 30 ML UNIT-DOSE CUP PO PRN (16:42)
[2025-03-31] MEDS ORDERED: BENZONATATE 200 MG CAPSULE PO PRN (16:42)
[2025-03-31] MEDS ORDERED: BISMUTH SUBSALICYLATE 524 MG/30 ML PO PRN (16:42)
[2025-03-31] MEDS ORDERED: IBUPROFEN 600 MG TABLET (FP) PO PRN (16:42)
[2025-03-31] MEDS ORDERED: BENZOCAINE/MENTHOL (CHLORASEPTIC ) LOZENGE MM PRN (16:42)
[2025-03-31] MEDS ORDERED: guaiFENesin 600 MG TABLET.ER (FP) PO PRN (16:42)
[2025-03-31] MEDS ORDERED: NALOXONE (NARCAN) HCL 4 MG/0.1 ML SPRAY NS PRN (16:42)
[2025-03-31] MEDS ORDERED: POLYETHYLENE GLYCOL (HEALTHYLAX) 3350 17 GM PACKET PO PRN (16:42)
[2025-03-31] MEDS ORDERED: MAGNESIUM HYDROX 2400MG/30ML ORAL SUSPENSION 30 ML CUP PO PRN (16:42)
[2025-03-31] MEDS ORDERED: ONDANSETRON *ODT* 4 MG TABLET SL PRN (16:42)
[2025-03-31] MEDS ORDERED: ACETAMINOPHEN 325 MG TABLET (FP) PO PRN (16:42)
[2025-03-31] MEDS ORDERED: IBUPROFEN 400 MG TABLET (FP) PO PRN (16:42)
[2025-03-31] MEDS: ASPIRIN COATED 81 MG TABLET.EC PO SCH (22:03)
[2025-03-31] MEDS: MELATONIN 5 MG TABLETS PO SCH (22:04)
[2025-03-31] MEDS: THIAMINE 100 MG TABLET PO SCH (22:04)
[2025-04-01] MEDS: PRENATAL VITAMINS W/ FOLIC ACID TABLET (FP) PO SCH (10:17)
[2025-04-05 09:52] VITALS: BP 138/85; PULSE 80; RESP 15; TEMP 96.9
== END 2025-04-05 10:45 | disposition home or self-care (01) | DRG 897 ==
LOC: YASAS 15:11 → Y3N 17:25
PROVIDERS: ADMIT Neuromusculoskeletal Medicine & OMM; ATTEND Allergy & Immunology
PROC: HZ2ZZZZ Detoxification Services for Substance Abuse Treatment (ICD-10-PCS; principal; 2025-03-31)
DX: F10.230 Alcohol dependence with withdrawal, uncomplicated (principal); F12.20 Cannabis dependence, uncomplicated; F17.210 Nicotine dependence, cigarettes, uncomplicated; I48.91 Unspecified atrial fibrillation; I10 Essential (primary) hypertension; I25.2 Old myocardial infarction
CPT/HCPCS: 36415; 80307

== ENCOUNTER 2025-05-26 16:12 | Inpatient (IN) | payer OTHER ==
[2025-05-26 16:50] VITALS: BMI 22.6
[2025-05-26] MEDS ORDERED: IBUPROFEN 600 MG TABLET (FP) PO PRN (16:58)
[2025-05-26] MEDS ORDERED: POLYETHYLENE GLYCOL (HEALTHYLAX) 3350 17 GM PACKET PO PRN (16:58)
[2025-05-26] MEDS ORDERED: NALOXONE (NARCAN) HCL 4 MG/0.1 ML SPRAY NS PRN (16:58)
[2025-05-26] MEDS ORDERED: NICOTINE POLACRILEX 2 MG LOZENGE BC PRN (16:58)
[2025-05-26] MEDS ORDERED: MAG HYDROX/AL HYDROX/SIMETH 30 ML UNIT-DOSE CUP PO PRN (16:58)
[2025-05-26] MEDS ORDERED: LOPERAMIDE HCL 2 MG CAPSULE PO PRN (16:58)
[2025-05-26] MEDS ORDERED: ACETAMINOPHEN 325 MG TABLET (FP) PO PRN (16:58)
[2025-05-26] MEDS ORDERED: guaiFENesin 600 MG TABLET.ER (FP) PO PRN (16:58)
[2025-05-26] MEDS ORDERED: MAGNESIUM HYDROX 2400MG/30ML ORAL SUSPENSION 30 ML CUP PO PRN (16:58)
[2025-05-26] MEDS ORDERED: IBUPROFEN 400 MG TABLET (FP) PO PRN (16:58)
[2025-05-26] MEDS ORDERED: BENZOCAINE/MENTHOL (CHLORASEPTIC ) LOZENGE MM PRN (16:58)
[2025-05-26] MEDS ORDERED: BENZONATATE 200 MG CAPSULE PO PRN (16:58)
[2025-05-26] MEDS ORDERED: BISMUTH SUBSALICYLATE 524 MG/30 ML PO PRN (16:58)
[2025-05-26] MEDS ORDERED: ONDANSETRON *ODT* 4 MG TABLET SL PRN (16:58)
[2025-05-26] MEDS ORDERED: NICOTINE POLACRILEX 2 MG GUM BUC PRN (16:58)
[2025-05-26] MEDS: THIAMINE 100 MG TABLET PO SCH (22:27)
[2025-05-26] MEDS: MELATONIN 5 MG TABLETS PO SCH (22:28)
[2025-05-27] MEDS ORDERED: METHOCARBAMOL 500 MG TABLET PO PRN (09:39)
[2025-05-27] MEDS ORDERED: hydrOXYzine PAMOATE 25 MG CAPSULE (FP) PO PRN (09:39)
[2025-05-27] MEDS ORDERED: DICYCLOMINE HCL 10 MG CAPSULE PO PRN (09:39)
[2025-05-27] MEDS: PRENATAL VITAMINS W/ FOLIC ACID TABLET (FP) PO SCH (09:58)
[2025-05-27 12:37] LABS: MCHC 31.1 g/dl (32.3-36.5); MEAN CELL VOLUME 85.1 fl (79.0-92.2); MEAN PLT VOLUME 11.5 fl (9.4-12.4); RDW 14.7 % (12.2-16.4)
[2025-05-27 12:50] LABS: GLUCOSE,RANDOM 88 mg/dL (74-106); TOT PROT 7.2 g/dl (6.4-8.2)
[2025-05-27 12:51] LABS: CO2 27 mmol/L (21-32)
[2025-05-27 12:52] LABS: ALK PHOS 80 U/L (40-150)
[2025-05-27 12:55] LABS: SGOT/AST 25 U/L (5-34); SGPT/ALT 20 U/L (0-55)
[2025-05-27 12:56] LABS: CREATININE 0.91 mg/dL (0.55-1.3)
[2025-05-29 12:23] VITALS: BP 121/74; PULSE 61; RESP 17; TEMP 97.7
== END 2025-05-29 15:50 | disposition home or self-care (01) | DRG 897 ==
LOC: YASAS 16:12 → Y6N 18:30
PROVIDERS: ADMIT Neuromusculoskeletal Medicine & OMM; ATTEND Counselor Addiction (Substance Use Disorder)
PROC: HZ2ZZZZ Detoxification Services for Substance Abuse Treatment (ICD-10-PCS; principal; 2025-05-27)
DX: F10.230 Alcohol dependence with withdrawal, uncomplicated (principal); F12.20 Cannabis dependence, uncomplicated; F17.210 Nicotine dependence, cigarettes, uncomplicated; I10 Essential (primary) hypertension; I25.2 Old myocardial infarction; Z86.79 Personal history of other diseases of the circulatory system
CPT/HCPCS: 36415; 80053; 80307; 85027; 86780